=== PATIENT | female | born 1935 | race Caucasian/White ===

== ENCOUNTER 2016-08-26 13:29 | Outpatient (CLI) | payer MEDICARE, OTHER | END 2016-08-26 13:30 | disposition home or self-care (01) | DX: I48.0 Paroxysmal atrial fibrillation (principal); Z79.01 Long term (current) use of anticoagulants ==

== ENCOUNTER 2016-09-09 10:25 | Outpatient (CLI) | payer MEDICARE, OTHER | END 2016-09-09 10:26 | disposition home or self-care (01) | DX: I48.0 Paroxysmal atrial fibrillation (principal); Z79.01 Long term (current) use of anticoagulants ==

== ENCOUNTER 2016-09-10 13:18 | Outpatient (CLI) | payer MEDICARE, OTHER | END 2016-09-10 13:19 | disposition home or self-care (01) | DX: G47.33 Obstructive sleep apnea (adult) (pediatric) (principal) | CPT/HCPCS: 99214; G0463 ==

== ENCOUNTER 2016-09-13 00:38 | Emergency (ER) | payer MEDICARE, OTHER | END 2016-09-13 04:06 | disposition home or self-care (01) | DX: R07.9 Chest pain, unspecified (principal); Z79.01 Long term (current) use of anticoagulants ==

== ENCOUNTER 2016-09-18 08:00 | Outpatient (CLI) | payer MEDICARE, OTHER | END 2016-09-18 23:59 | DX: I48.0 Paroxysmal atrial fibrillation (principal); Z79.01 Long term (current) use of anticoagulants ==

== ENCOUNTER 2016-12-16 13:54 | Outpatient (CLI) | payer MEDICARE, OTHER | END 2016-12-16 23:59 | disposition home or self-care (01) | DX: I48.0 Paroxysmal atrial fibrillation (principal); Z79.01 Long term (current) use of anticoagulants ==

== ENCOUNTER 2017-01-01 13:31 | Outpatient (CLI) | payer MEDICARE, OTHER | END 2017-01-01 13:32 | disposition home or self-care (01) | DX: G47.33 Obstructive sleep apnea (adult) (pediatric) (principal) | CPT/HCPCS: 99214; G0463 ==

== ENCOUNTER 2017-01-26 09:51 | Outpatient (CLI) | payer MEDICARE, OTHER | END 2017-01-26 09:52 | disposition short-term general hospital (02) | LOC: EMS 09:51 | PROVIDERS: ATTEND Surgery | DX: R20.0 Anesthesia of skin (principal) | CPT/HCPCS: A0425; A0427 ==

== ENCOUNTER 2017-01-29 14:57 | Outpatient (CLI) | payer MEDICARE, OTHER | END 2017-01-29 14:58 | disposition home or self-care (01) | LOC: LAB.F 14:57 | PROVIDERS: ATTEND Internal Medicine | DX: I48.0 Paroxysmal atrial fibrillation (principal); Z79.01 Long term (current) use of anticoagulants | CPT/HCPCS: 85610 ==

== ENCOUNTER 2017-02-17 13:16 | Outpatient (CLI) | payer MEDICARE, OTHER | END 2017-02-17 13:17 | disposition home or self-care (01) | LOC: SC 13:16 | PROVIDERS: ATTEND Nurse Practitioner Family | DX: G47.33 Obstructive sleep apnea (adult) (pediatric) (principal) | CPT/HCPCS: 99214; G0463; 99212 ==

== ENCOUNTER 2017-02-20 11:09 | Outpatient (CLI) | payer MEDICARE, OTHER | END 2017-02-20 11:10 | disposition home or self-care (01) | LOC: LAB.F 11:09 | PROVIDERS: ATTEND Internal Medicine | DX: I48.0 Paroxysmal atrial fibrillation (principal); Z79.01 Long term (current) use of anticoagulants | CPT/HCPCS: 85610 ==

== ENCOUNTER 2017-03-02 08:00 | Outpatient (CLI) | payer MEDICARE, OTHER | END 2017-03-02 08:01 | disposition home or self-care (01) | DX: I48.0 Paroxysmal atrial fibrillation (principal); Z79.01 Long term (current) use of anticoagulants ==

== ENCOUNTER 2017-03-06 14:25 | Outpatient (CLI) | payer MEDICARE, OTHER | END 2017-03-06 14:26 | disposition home or self-care (01) | LOC: LAB.F 14:25 | PROVIDERS: ATTEND Internal Medicine | DX: I48.0 Paroxysmal atrial fibrillation (principal); Z79.01 Long term (current) use of anticoagulants | CPT/HCPCS: 85610 ==

== ENCOUNTER 2017-03-19 12:36 | Outpatient (CLI) | payer MEDICARE, OTHER | END 2017-03-19 12:37 | disposition home or self-care (01) | LOC: LAB.F 12:36 | PROVIDERS: ATTEND Internal Medicine | DX: I48.0 Paroxysmal atrial fibrillation (principal); Z79.01 Long term (current) use of anticoagulants | CPT/HCPCS: 85610 ==

== ENCOUNTER 2017-03-25 15:32 | Outpatient (CLI) | payer MEDICARE, OTHER | END 2017-03-25 15:33 | disposition home or self-care (01) | LOC: LAB.F 15:32 | PROVIDERS: ATTEND Internal Medicine | DX: I48.0 Paroxysmal atrial fibrillation (principal); Z79.01 Long term (current) use of anticoagulants | CPT/HCPCS: 85610 ==

== ENCOUNTER 2017-04-15 15:29 | Outpatient (CLI) | payer MEDICARE, OTHER | END 2017-04-15 15:30 | disposition home or self-care (01) | LOC: LAB.F 15:29 | PROVIDERS: ATTEND Internal Medicine | DX: I48.0 Paroxysmal atrial fibrillation (principal); Z79.01 Long term (current) use of anticoagulants | CPT/HCPCS: 85610 ==

== ENCOUNTER 2017-05-01 13:57 | Outpatient (CLI) | payer MEDICARE, OTHER | END 2017-05-01 13:58 | disposition home or self-care (01) | LOC: LAB.F 13:57 | PROVIDERS: ATTEND Internal Medicine | DX: I48.0 Paroxysmal atrial fibrillation (principal); Z79.01 Long term (current) use of anticoagulants | CPT/HCPCS: 85610 ==

== ENCOUNTER 2017-05-06 10:31 | Outpatient (CLI) | payer MEDICARE, OTHER ==
--- NOTE | 2017-05-06 18:00 | CT Report ---
CT CHEST WITHOUT CONTRAST: 05/06/2017 CLINICAL INDICATION: Followup JOANIE infection. TECHNIQUE: Axial CT images of the chest were obtained without intravenous contrast. COMPARISON: 05/07/2016, 12/10/2011. FINDINGS: The heart and great vessels demonstrate atherosclerotic calcification. A moderate hiatal hernia is present. No hilar or mediastinal lymphadenopathy is seen. Multiple pulmonary nodules are again noted, stable, as well as stable bronchiectasis and mild emphysematous changes. No effusion or pneumothorax is present. Limited evaluation of upper abdominal structures demonstrates normal adrenal glands. Osseous structu res demonstrate degenerative changes. IMPRESSION: STABLE CHANGES OF JOANIE INFECTION. NO SIGNIFICANT INTERVAL CHANGE FROM 05/07/2016. In accordance with CT protocol optimization, one or more of the following dose reduction techniques w ere utilized for this exam: automated exposure control, adjustment of mA and/or KV based on patient size, or use of iterative reconstructive technique. JOB #: [id number] EXT JOB #:[id number]
== END 2017-05-06 10:32 | disposition home or self-care (01) ==
LOC: DI 10:31
PROVIDERS: ATTEND Internal Medicine Pulmonary Disease
DX: A31.0 Pulmonary mycobacterial infection (principal); R93.8 Abnormal findings on diagnostic imaging of other specified body structures; R91.8 Other nonspecific abnormal finding of lung field
CPT/HCPCS: 71250

== ENCOUNTER 2017-05-06 13:14 | Outpatient (CLI) | payer MEDICARE, OTHER | END 2017-05-06 13:15 | disposition home or self-care (01) | LOC: SC 13:14 | PROVIDERS: ATTEND Nurse Practitioner Family | DX: G47.33 Obstructive sleep apnea (adult) (pediatric) (principal); A31.0 Pulmonary mycobacterial infection; R93.8 Abnormal findings on diagnostic imaging of other specified body structures; R91.8 Other nonspecific abnormal finding of lung field | CPT/HCPCS: 71250; 99213; G0463; 99212 ==

== ENCOUNTER 2017-05-22 15:22 | Outpatient (CLI) | payer MEDICARE, OTHER | END 2017-05-22 15:23 | disposition home or self-care (01) | LOC: LAB.F 15:22 | PROVIDERS: ATTEND Internal Medicine | DX: I48.0 Paroxysmal atrial fibrillation (principal); Z79.01 Long term (current) use of anticoagulants | CPT/HCPCS: 85610 ==

== ENCOUNTER 2017-07-09 15:00 | Outpatient (CLI) | payer MEDICARE, OTHER | END 2017-07-09 15:01 | disposition home or self-care (01) | LOC: LAB.R 15:00 | PROVIDERS: ATTEND Obstetrics & Gynecology | DX: N89.8 Other specified noninflammatory disorders of vagina (principal) | CPT/HCPCS: 87480; 87510; 87660 ==

== ENCOUNTER 2017-07-21 10:00 | Outpatient (CLI) | payer MEDICARE, OTHER ==
--- NOTE | 2017-07-22 17:22 | Mammography Report ---
DIGITAL SCREENING MAMMOGRAM: 07/21/2017 CLINICAL INDICATION: A 81-year-old with family history of breast cancer, history of benign biopsies for screening. COMPARISON: 06/2015, 07/2013, 06/2011, 06/2010. TECHNIQUE: Routine CC and MLO projections were obtained of the breasts. The breasts demonstrate scattered fibroglandular densities bilaterally. Coarse and punctate, typical ly benign calcifications are present. Post-biopsy changes are stable. No suspicious masses, cluster ed microcalcifications, or regions of architectural distortion are identified. IMPRESSION: BENIGN FINDINGS. RECOMMENDATION: ROUTINE ANNUAL SCREENING UNLESS OTHERWISE CLINICALLY INDICATED. BIRADS CATEGORY: 2, BENIGN FINDINGS. STANDARD QUALIFYING STATEMENTS 1. This examination was reviewed with the aid of Computed-Aided Detection (CAD). 2. A negative or benign imaging report should not delay biopsy if clinically suspicious findings are present. Consider surgical consultation if warranted. More than 5% of cancers are not identified b y imaging. 3. Dense breasts may obscure an underlying neoplasm. JOB #: [id number] EXT JOB #:[id number]
== END 2017-07-21 10:01 | disposition home or self-care (01) ==
LOC: DI 10:00
PROVIDERS: ATTEND Internal Medicine
DX: Z12.31 Encounter for screening mammogram for malignant neoplasm of breast (principal); Z80.3 Family history of malignant neoplasm of breast
CPT/HCPCS: 77067

== ENCOUNTER 2017-07-22 13:38 | Outpatient (CLI) | payer MEDICARE, OTHER | END 2017-07-22 13:39 | disposition home or self-care (01) | LOC: LAB.F 13:38 | PROVIDERS: ATTEND Internal Medicine | DX: I48.0 Paroxysmal atrial fibrillation (principal); Z79.01 Long term (current) use of anticoagulants | CPT/HCPCS: 85610 ==

== ENCOUNTER 2017-07-28 13:52 | Outpatient (CLI) | payer MEDICARE, OTHER | END 2017-07-28 13:53 | disposition home or self-care (01) | LOC: LAB.F 13:52 | PROVIDERS: ATTEND Internal Medicine Cardiovascular Disease | DX: Z79.899 Other long term (current) drug therapy (principal) | CPT/HCPCS: 36415; 84450; 84460 ==

== ENCOUNTER 2017-08-05 09:43 | Outpatient (CLI) | payer MEDICARE, OTHER ==
--- NOTE | 2017-08-06 16:32 | DEXA Report ---
DEXA: 08/05/2017 CLINICAL INDICATION: Postmenopausal, on Fosamax TECHNIQUE: Dual energy x-ray absorptiometry (DXA) was performed on a [employer] system. Regions measured are the AP spine, femoral neck, and, if needed, forearm. COMPARISON: 06/16/2016. In accordance with the International Society for Clinical Densitometry (ISCD) guidelines, data from previous exams may be reanalyzed using current recommendations and techniques. This is done to allow a more accurate basis for comparison with the current study. FINDINGS: LUMBAR SPINE DATA: REGION BMD (g/cm/cm) T-SCORE Z-SCORE L1 0.886 -2.0 -0.2 L2 0.890 -2.6 -0.8 L3 1.141 -0.5 1.3 L4 1.067 -1.1 0.7 TOTAL 0.994 -1.5 0.3 NOTE: All evaluable vertebrae are used for classification. HIP DATA: REGION BMD (g/cm/cm) T-SCORE Z-SCORE Neck 0.764 -2.0 0.2 TOTAL 0.739 -2.1 -0.2 NOTE: The femoral neck or total proximal femur, whichever is lowest, is used for classification. IMPRESSION THE WHO CLASSIFICATION BASED ON THE INTERNATIONAL REFERENCE STANDARD: OSTEOPENIA FRACTURE RISK: INCREASED. RECOMMENDATION: Patients with diagnosis of osteoporosis or osteopenia should have regular bone mineral density assessment. For those eligible for Medicare, routine testing is allowed once every 2 years. Testing frequency can be increased for patients who have rapidly progressing disease or for those who are receiving medical therapy to restore bone mass. COMMENT: World Health Organization (WHO) definitions for osteoporosis and osteopenia: NORMAL BMD: T-score at -1.0 or higher, fracture risk is low. OSTEOPENIA BMD: T-score between -1.0 and -2.5, fracture risk is increased. OSTEOPOROSIS BMD: T-score at -2.5 or lower, fracture risk high. National Osteoporosis Foundation recommends: 1. Obtain adequate dietary calcium (at least 1200 mg per day) and vitamin D (400 -800 international units per day). 2. Participate, as appropriate, in regular weight bearing and muscle- strengthening exercise. 3. Avoid tobacco use and reduce alcohol and caffeine intake. 4. For more detailed information see the website at www.NOF.org. MTDD
== END 2017-08-05 09:44 | disposition home or self-care (01) ==
LOC: DI 09:43
PROVIDERS: ATTEND Internal Medicine
DX: M85.89 Other specified disorders of bone density and structure, multiple sites (principal)
CPT/HCPCS: 77080

== ENCOUNTER 2017-08-14 13:13 | Outpatient (CLI) | payer MEDICARE, OTHER | END 2017-08-14 13:14 | disposition home or self-care (01) | LOC: LAB.F 13:13 | PROVIDERS: ATTEND Internal Medicine | DX: I48.0 Paroxysmal atrial fibrillation (principal); Z79.01 Long term (current) use of anticoagulants | CPT/HCPCS: 85610 ==

== ENCOUNTER 2017-08-27 13:39 | Outpatient (CLI) | payer MEDICARE, OTHER | END 2017-08-27 13:40 | disposition home or self-care (01) | LOC: LAB.F 13:39 | PROVIDERS: ATTEND Internal Medicine | DX: I48.0 Paroxysmal atrial fibrillation (principal); Z79.01 Long term (current) use of anticoagulants | CPT/HCPCS: 85610 ==

== ENCOUNTER 2017-12-15 13:39 | Outpatient (CLI) | payer MEDICARE, OTHER | END 2017-12-15 13:40 | disposition home or self-care (01) | LOC: LAB.F 13:39 | PROVIDERS: ATTEND Internal Medicine | DX: I48.0 Paroxysmal atrial fibrillation (principal); Z79.01 Long term (current) use of anticoagulants | CPT/HCPCS: 85610 ==

== ENCOUNTER 2018-01-19 08:00 | Outpatient (CLI) | payer MEDICARE, OTHER | END 2018-01-19 08:01 | LOC: LAB.F 08:00 | PROVIDERS: ATTEND Internal Medicine | DX: I48.0 Paroxysmal atrial fibrillation (principal); Z79.01 Long term (current) use of anticoagulants | CPT/HCPCS: 85610 ==

== ENCOUNTER 2018-02-05 13:22 | Outpatient (CLI) | payer MEDICARE, OTHER | END 2018-02-05 13:23 | disposition home or self-care (01) | LOC: LAB.F 13:22 | PROVIDERS: ATTEND Internal Medicine | DX: I48.0 Paroxysmal atrial fibrillation (principal); Z79.01 Long term (current) use of anticoagulants | CPT/HCPCS: 85610 ==

== ENCOUNTER 2018-03-31 14:00 | Outpatient (CLI) | payer MEDICARE, OTHER | END 2018-03-31 14:01 | disposition home or self-care (01) | LOC: LAB.F 14:00 | PROVIDERS: ATTEND Internal Medicine | DX: I48.0 Paroxysmal atrial fibrillation (principal); Z79.01 Long term (current) use of anticoagulants | CPT/HCPCS: 85610 ==

== ENCOUNTER 2018-04-05 13:43 | Outpatient (CLI) | payer MEDICARE, OTHER ==
[2018-04-05 17:57] LABS: BASOPHILS # (AUTO) 0.1 10^3/uL (0.0-0.1); BASOPHILS % (AUTO) 0.8 %; EOSINOPHILS # (AUTO) 0.1 10^3/uL (0.0-0.7); EOSINOPHILS % (AUTO) 1.3 %; HGB - HEMOGLOBIN 11.7 g/dL (12.0-16.0); LYMPHOCYTES # (AUTO) 1.4 10^3/uL (1.5-3.5); LYMPHOCYTES % (AUTO) 18.4 %; MEAN CORPUSCULAR HEMOGLOBIN 31.5 pg (27.0-31.0); MEAN CORPUSCULAR HGB CONC 33.2 g/dL (32.0-36.0); MEAN PLATELET VOLUME 7.7 fL (7.9-10.8); MONOCYTES # (AUTO) 0.5 10^3/uL (0.0-1.0); MONOCYTES % (AUTO) 6.4 %; NEUTROPHILS # (AUTO) 5.5 10^3/uL (1.5-6.6); NEUTROPHILS % (AUTO) 73.1 %; PLT - PLATELET COUNT 272 10^3/uL (130-450); RED BLOOD COUNT 3.71 10^6/uL (4.20-5.40); RED CELL DISTRIBUTION WIDTH 14.3 % (12.0-15.0); WHITE BLOOD COUNT 7.5 x10^3/uL (4.8-10.8)
[2018-04-05 18:23] LABS: ALBUMIN 3.5 g/dL (3.2-5.5); ALBUMIN/GLOBULIN RATIO 1.1 (1.0-2.2); BILIRUBIN,TOTAL 1.1 mg/dL (0.2-1.0); CALCIUM 8.5 mg/dL (8.5-10.3); CREATININE 0.7 mg/dL (0.4-1.0); TOTAL PROTEIN 6.6 g/dL (6.7-8.2)
[2018-04-07 19:31] LABS: H. PYLORIS ANTIGEN STL NEGATIVE (Negative)
== END 2018-04-05 13:44 | disposition home or self-care (01) ==
LOC: LAB.F 13:43
PROVIDERS: ATTEND Internal Medicine
DX: I48.0 Paroxysmal atrial fibrillation (principal); Z79.01 Long term (current) use of anticoagulants; J30.9 Allergic rhinitis, unspecified; D32.0 Benign neoplasm of cerebral meninges; K21.9 Gastro-esophageal reflux disease without esophagitis; J98.4 Other disorders of lung; G47.33 Obstructive sleep apnea (adult) (pediatric); A31.0 Pulmonary mycobacterial infection; E04.1 Nontoxic single thyroid nodule; R19.7 Diarrhea, unspecified
CPT/HCPCS: 36415; 80053; 85025; 85610; 87338

== ENCOUNTER 2018-04-07 08:00 | Outpatient (CLI) | payer MEDICARE, OTHER | END 2018-04-07 08:01 | disposition home or self-care (01) | LOC: LAB.F 08:00 | PROVIDERS: ATTEND Internal Medicine | DX: J30.9 Allergic rhinitis, unspecified (principal); I48.91 Unspecified atrial fibrillation; D32.0 Benign neoplasm of cerebral meninges; K21.9 Gastro-esophageal reflux disease without esophagitis; J98.4 Other disorders of lung; G47.33 Obstructive sleep apnea (adult) (pediatric); A31.0 Pulmonary mycobacterial infection; E04.1 Nontoxic single thyroid nodule; R19.7 Diarrhea, unspecified | CPT/HCPCS: 87338 ==

== ENCOUNTER 2018-04-16 14:35 | Outpatient (CLI) | payer MEDICARE, OTHER | END 2018-04-16 14:36 | disposition home or self-care (01) | LOC: LAB.F 14:35 | PROVIDERS: ATTEND Internal Medicine | DX: I48.0 Paroxysmal atrial fibrillation (principal); Z79.01 Long term (current) use of anticoagulants | CPT/HCPCS: 85610 ==

== ENCOUNTER 2018-05-25 13:15 | Outpatient (CLI) | payer MEDICARE, OTHER | END 2018-05-25 13:16 | disposition home or self-care (01) | LOC: SC 13:15 | PROVIDERS: ATTEND Nurse Practitioner Family | DX: G47.33 Obstructive sleep apnea (adult) (pediatric) (principal) | CPT/HCPCS: 99214; G0463; 99212 ==

== ENCOUNTER 2018-05-28 13:44 | Outpatient (CLI) | payer MEDICARE, OTHER | END 2018-05-28 13:45 | disposition home or self-care (01) | LOC: LAB.F 13:44 | PROVIDERS: ATTEND Internal Medicine | DX: I48.0 Paroxysmal atrial fibrillation (principal); Z79.01 Long term (current) use of anticoagulants | CPT/HCPCS: 85610 ==

== ENCOUNTER 2018-06-10 14:10 | Outpatient (CLI) | payer MEDICARE, OTHER | END 2018-06-10 14:11 | disposition home or self-care (01) | LOC: LAB.F 14:10 | PROVIDERS: ATTEND Internal Medicine | DX: I48.0 Paroxysmal atrial fibrillation (principal); Z79.01 Long term (current) use of anticoagulants | CPT/HCPCS: 85610 ==

== ENCOUNTER 2018-06-22 12:36 | Outpatient (CLI) | payer MEDICARE, OTHER | END 2018-06-22 12:37 | disposition home or self-care (01) | LOC: LAB.F 12:36 | PROVIDERS: ATTEND Internal Medicine | DX: I48.0 Paroxysmal atrial fibrillation (principal); Z79.01 Long term (current) use of anticoagulants | CPT/HCPCS: 85610 ==

== ENCOUNTER 2018-06-28 13:09 | Outpatient (CLI) | payer MEDICARE, OTHER ==
--- NOTE | 2018-06-28 15:59 | CT Report ---
Reason: COUGH, HISTORY OF MAC INFECTION Procedure Date: 06/28/2018 Accession Number: [id number] / [id number] Procedure: CT - Chest W/O CPT Code: FULL RESULT: EXAM: CT CHEST EXAM DATE: 06/28/2018 01:35 PM. CLINICAL HISTORY: Cough, history of MAC infection. COMPARISONS: CHEST W/O 05/06/2017 12:11 PM. TECHNIQUE: Routine helical CT imaging was performed through the chest. IV contrast: None. Reconstructions: Coronal and sagittal. In accordance with CT protocol optimization, one or more of the following dose reduction techniques were utilized for this exam: automated exposure control, adjustment of mA and/or KV based on patient size, or use of iterative reconstructive technique. FINDINGS: Lungs/Pleura: Numerous peripheral tiny nodules and tree-in-bud opacities as well as scant peripheral nodules measuring up to 0.8 cm appear similar in distribution and size to April 2017. Again seen is bronchiectasis and bronchial wall thickening which is most pronounced in the lingula where there is nima scarring. There is no superimposed lobar consolidation. No pulmonary mass or new suspicious pulmonary nodule is identified though sensitivity for this is limited given the background of extensive pulmonary nodules. No pericardial or pleural effusion. No pneumothorax. Mediastinum: Normal. No adenopathy or masses. The noncontrast heart is normal. Aortic calcifications are again seen. Bones: Unremarkable. Visualized Abdomen: Unremarkable. Other: None. IMPRESSION: Stable configuration of numerous peripheral lung nodules, tree-in-bud opacities and scarring with bronchiectasis which is lingula predominant. RADIA
== END 2018-06-28 13:10 | disposition home or self-care (01) ==
LOC: DI 13:09
PROVIDERS: ATTEND Internal Medicine Pulmonary Disease
DX: J47.9 Bronchiectasis, uncomplicated (principal); R91.8 Other nonspecific abnormal finding of lung field; Z86.19 Personal history of other infectious and parasitic diseases
CPT/HCPCS: 71250

== ENCOUNTER 2018-07-06 14:55 | Outpatient (CLI) | payer MEDICARE, OTHER | END 2018-07-06 14:56 | disposition home or self-care (01) | LOC: LAB.F 14:55 | PROVIDERS: ATTEND Internal Medicine | DX: Z53.9 Procedure and treatment not carried out, unspecified reason (principal) ==

== ENCOUNTER 2018-07-07 13:39 | Outpatient (CLI) | payer MEDICARE, OTHER ==
[2018-07-07 18:23] LABS: INR 2.3 (0.8-1.2); PT - PROTHROMBIN TIME 25.9 secs (9.9-12.6)
== END 2018-07-07 13:40 | disposition home or self-care (01) ==
LOC: LAB.F 13:39
PROVIDERS: ATTEND Internal Medicine
DX: I48.0 Paroxysmal atrial fibrillation (principal); Z79.01 Long term (current) use of anticoagulants
CPT/HCPCS: 36415; 85610

== ENCOUNTER 2018-07-23 13:15 | Outpatient (CLI) | payer MEDICARE, OTHER | END 2018-07-23 13:16 | disposition home or self-care (01) | LOC: LAB.F 13:15 | PROVIDERS: ATTEND Internal Medicine | DX: I48.0 Paroxysmal atrial fibrillation (principal); Z79.01 Long term (current) use of anticoagulants | CPT/HCPCS: 85610 ==

== ENCOUNTER 2018-08-02 11:27 | Outpatient (CLI) | payer MEDICARE, OTHER ==
--- NOTE | 2018-08-03 09:39 | Mammography Report ---
Reason: SCREENING MAMMO Procedure Date: 08/02/2018 Accession Number: [id number] / [id number] Procedure: [facility]ATE[facility] - Screening Mammo w/Hernan CPT Code: FULL RESULT: EXAM: Screening Mammo w/Hernan DATE: 08/02/2018 12:20 PM CLINICAL HISTORY: Screening encounter. History of bilateral breast biopsies in 1997 and 2002 respectively. Family history of breast cancer in the mother at age 72 a daughter at age 55 and a brother at age 65. TECHNIQUE: Bilateral CC and MLO views were obtained. COMPARISON: 07/21/2017 through 07/01/2011. FINDINGS: The breasts demonstrate scattered fibroglandular densities bilaterally. Typically benign large rodlike calcifications and typically benign vascular calcifications are identified. No suspicious masses, clustered microcalcifications, or regions of architectural distortion are identified. IMPRESSION: Benign findings RECOMMENDATION: Routine annual screening unless otherwise clinically indicated. BIRADS CATEGORY 2: Benign findings STANDARD QUALIFYING STATEMENTS: 1. This examination was not reviewed with the aid of Computer-Aided Detection (CAD). 2. A negative or benign imaging report should not preclude biopsy if clinically suspicious findings are present. 3. Dense breasts may obscure an underlying neoplasm. 4. This examination was reviewed with the aid of 3D breast imaging (tomosynthesis).
== END 2018-08-02 11:28 | disposition home or self-care (01) ==
LOC: DI 11:27
DX: Z12.31 Encounter for screening mammogram for malignant neoplasm of breast (principal); Z80.3 Family history of malignant neoplasm of breast
CPT/HCPCS: 77063; 77067

== ENCOUNTER 2018-08-30 13:37 | Outpatient (CLI) | payer MEDICARE, OTHER | END 2018-08-30 13:38 | disposition home or self-care (01) | LOC: LAB.F 13:37 | PROVIDERS: ATTEND Internal Medicine | DX: I48.0 Paroxysmal atrial fibrillation (principal); Z79.01 Long term (current) use of anticoagulants | CPT/HCPCS: 85610 ==

== ENCOUNTER 2018-08-31 08:00 | Outpatient (CLI) | payer MEDICARE, OTHER | END 2018-08-31 23:59 | disposition home or self-care (01) | LOC: LAB.R 08:00 | PROVIDERS: ATTEND Obstetrics & Gynecology | DX: N76.0 Acute vaginitis (principal) | CPT/HCPCS: 87480; 87510; 87660 ==

== ENCOUNTER 2018-09-24 13:34 | Outpatient (CLI) | payer MEDICARE, OTHER | END 2018-09-24 13:35 | disposition home or self-care (01) | LOC: LAB.F 13:34 | PROVIDERS: ATTEND Internal Medicine | DX: I48.0 Paroxysmal atrial fibrillation (principal); Z79.01 Long term (current) use of anticoagulants | CPT/HCPCS: 85610 ==

== ENCOUNTER 2018-11-17 13:12 | Outpatient (CLI) | payer MEDICARE, OTHER | END 2018-11-17 13:13 | disposition home or self-care (01) | LOC: LAB.F 13:12 | PROVIDERS: ATTEND Internal Medicine | DX: I48.0 Paroxysmal atrial fibrillation (principal); Z79.01 Long term (current) use of anticoagulants | CPT/HCPCS: 85610 ==

== ENCOUNTER 2018-12-01 13:30 | Outpatient (CLI) | payer MEDICARE, OTHER | END 2018-12-01 13:31 | disposition home or self-care (01) | LOC: LAB.F 13:30 | PROVIDERS: ATTEND Internal Medicine | DX: I48.0 Paroxysmal atrial fibrillation (principal); Z79.01 Long term (current) use of anticoagulants | CPT/HCPCS: 85610 ==

== ENCOUNTER 2018-12-24 13:53 | Outpatient (CLI) | payer MEDICARE, OTHER | END 2018-12-24 13:54 | disposition home or self-care (01) | LOC: LAB.F 13:53 | PROVIDERS: ATTEND Internal Medicine | DX: I48.0 Paroxysmal atrial fibrillation (principal); Z79.01 Long term (current) use of anticoagulants | CPT/HCPCS: 85610 ==

== ENCOUNTER 2019-01-13 13:44 | Outpatient (CLI) | payer MEDICARE, OTHER ==
[2019-01-13 17:42] LABS: BASOPHILS % (AUTO) 0.4 %; EOSINOPHILS # (AUTO) 0.1 10^3/uL (0.0-0.7); HGB - HEMOGLOBIN 12.3 g/dL (12.0-16.0); LYMPHOCYTES # (AUTO) 1.6 10^3/uL (1.5-3.5); LYMPHOCYTES % (AUTO) 21.6 %; MEAN CORPUSCULAR HEMOGLOBIN 30.8 pg (27.0-31.0); MEAN CORPUSCULAR HGB CONC 32.7 g/dL (32.0-36.0); MEAN CORPUSCULAR VOLUME 94.1 fL (81.0-99.0); MEAN PLATELET VOLUME 7.4 fL (7.9-10.8); MONOCYTES # (AUTO) 0.6 10^3/uL (0.0-1.0); MONOCYTES % (AUTO) 7.4 %; NEUTROPHILS # (AUTO) 5.2 10^3/uL (1.5-6.6); NEUTROPHILS % (AUTO) 69.6 %; PLT - PLATELET COUNT 314 10^3/uL (130-450); RED BLOOD COUNT 3.99 10^6/uL (4.20-5.40); RED CELL DISTRIBUTION WIDTH 14.5 % (12.0-15.0); WHITE BLOOD COUNT 7.5 x10^3/uL (4.8-10.8)
[2019-01-13 18:05] LABS: ALBUMIN 3.7 g/dL (3.2-5.5); ALBUMIN/GLOBULIN RATIO 1.1 (1.0-2.2); BILIRUBIN,TOTAL 0.5 mg/dL (0.2-1.0); CALCIUM 8.7 mg/dL (8.5-10.3); CREATININE 0.6 mg/dL (0.4-1.0); TOTAL PROTEIN 7.1 g/dL (6.7-8.2)
== END 2019-01-13 13:45 | disposition home or self-care (01) ==
LOC: LAB.F 13:44
PROVIDERS: ATTEND Internal Medicine
DX: I48.0 Paroxysmal atrial fibrillation (principal); Z79.01 Long term (current) use of anticoagulants; J30.9 Allergic rhinitis, unspecified; D32.0 Benign neoplasm of cerebral meninges; R19.7 Diarrhea, unspecified; K21.9 Gastro-esophageal reflux disease without esophagitis; R91.8 Other nonspecific abnormal finding of lung field; G47.33 Obstructive sleep apnea (adult) (pediatric); A31.0 Pulmonary mycobacterial infection; E04.1 Nontoxic single thyroid nodule; N76.0 Acute vaginitis
CPT/HCPCS: 36415; 80053; 85025; 85610

== ENCOUNTER 2019-01-24 08:00 | Outpatient (CLI) | payer MEDICARE, OTHER | END 2019-01-24 23:59 | disposition home or self-care (01) | LOC: LAB.R 08:00 | PROVIDERS: ATTEND Internal Medicine | DX: R19.7 Diarrhea, unspecified (principal); J30.9 Allergic rhinitis, unspecified; I48.91 Unspecified atrial fibrillation; D32.0 Benign neoplasm of cerebral meninges; K21.9 Gastro-esophageal reflux disease without esophagitis; R91.8 Other nonspecific abnormal finding of lung field; G47.33 Obstructive sleep apnea (adult) (pediatric); A31.0 Pulmonary mycobacterial infection; E04.1 Nontoxic single thyroid nodule; N76.0 Acute vaginitis | CPT/HCPCS: 81599; 82270; 87045; 87046; 87329 ==

== ENCOUNTER 2019-01-26 08:00 | Outpatient (CLI) | payer MEDICARE, OTHER | END 2019-01-26 23:59 | disposition home or self-care (01) | LOC: LAB.R 08:00 | PROVIDERS: ATTEND Internal Medicine | DX: R19.7 Diarrhea, unspecified (principal); J30.9 Allergic rhinitis, unspecified; I48.91 Unspecified atrial fibrillation; D32.0 Benign neoplasm of cerebral meninges; K21.9 Gastro-esophageal reflux disease without esophagitis; R91.8 Other nonspecific abnormal finding of lung field; G47.33 Obstructive sleep apnea (adult) (pediatric); A31.0 Pulmonary mycobacterial infection; E04.1 Nontoxic single thyroid nodule; N76.0 Acute vaginitis | CPT/HCPCS: 83630; 87177; 87209 ==

== ENCOUNTER 2019-01-26 08:00 | Outpatient (CLI) | payer MEDICARE, OTHER ==
[2019-01-26 19:25] LABS: H. PYLORIS ANTIGEN STL NEGATIVE (Negative)
== END 2019-01-26 23:59 | disposition home or self-care (01) ==
LOC: LAB.R 08:00
PROVIDERS: ATTEND Internal Medicine
DX: R19.7 Diarrhea, unspecified (principal); J30.9 Allergic rhinitis, unspecified; I48.91 Unspecified atrial fibrillation; D32.0 Benign neoplasm of cerebral meninges; K21.9 Gastro-esophageal reflux disease without esophagitis; R91.8 Other nonspecific abnormal finding of lung field; G47.33 Obstructive sleep apnea (adult) (pediatric); A31.0 Pulmonary mycobacterial infection; E04.1 Nontoxic single thyroid nodule; N76.0 Acute vaginitis
CPT/HCPCS: 87338

== ENCOUNTER 2019-02-09 13:18 | Outpatient (CLI) | payer MEDICARE, OTHER | END 2019-02-09 13:19 | disposition home or self-care (01) | LOC: LAB.F 13:18 | PROVIDERS: ATTEND Internal Medicine | DX: I48.0 Paroxysmal atrial fibrillation (principal); Z79.01 Long term (current) use of anticoagulants | CPT/HCPCS: 85610 ==

== ENCOUNTER 2019-04-07 09:27 | Outpatient (CLI) | payer MEDICARE, OTHER | END 2019-04-07 09:28 | disposition home or self-care (01) | LOC: LAB.S 09:27 | PROVIDERS: ATTEND Internal Medicine | DX: I48.0 Paroxysmal atrial fibrillation (principal); Z79.01 Long term (current) use of anticoagulants | CPT/HCPCS: 85610 ==

== ENCOUNTER 2019-05-23 10:05 | Outpatient (CLI) | payer MEDICARE, OTHER | END 2019-05-23 10:06 | disposition home or self-care (01) | LOC: LAB.S 10:05 | PROVIDERS: ATTEND Internal Medicine | DX: I48.0 Paroxysmal atrial fibrillation (principal); Z79.01 Long term (current) use of anticoagulants | CPT/HCPCS: 85610 ==

== ENCOUNTER 2019-06-15 13:20 | Outpatient (CLI) | payer MEDICARE, OTHER | END 2019-06-15 13:21 | disposition home or self-care (01) | LOC: LAB.S 13:20 | PROVIDERS: ATTEND Internal Medicine | DX: I48.0 Paroxysmal atrial fibrillation (principal); Z79.01 Long term (current) use of anticoagulants | CPT/HCPCS: 85610 ==

== ENCOUNTER 2019-06-16 12:01 | Outpatient (CLI) | payer MEDICARE, OTHER ==
[2019-06-16 17:17] LABS: CREATININE 0.6 mg/dL (0.4-1.0)
== END 2019-06-16 12:02 | disposition home or self-care (01) ==
LOC: LAB.S 12:01
PROVIDERS: ATTEND Psychiatry & Neurology Neurology
DX: C71.9 Malignant neoplasm of brain, unspecified (principal)
CPT/HCPCS: 36415; 82565; 84520

== ENCOUNTER 2019-06-28 09:54 | Outpatient (CLI) | payer MEDICARE, OTHER ==
[2019-06-28 12:21] VITALS: BP 140/68
--- NOTE | 2019-06-28 12:21 | SLEEP CARE CONSULTATION ---
Information from patient questionnaire entered by Rosmery Medina. I have reviewed and concur with the information entered by Rosmery Medina. This document represents the service I personally performed and the decisions made by me, Una Montez, RN, MSN, MINE MANAGER. History of Present Illness Previous diagnosis: Mild, Obstructive Sleep Apnea-Hypopnea Syndrome AHI: 10.1 Reason for follow up: annual Accompanied by: Spouse Equipment type: CPAP Equipment obtained from: [employer] (getting equipment okay) Mask style: Full face (F20) Mask brand: Resmed Backup mask available: Yes Last cushion change: a couple days ago Prior sleep studies: Yes [facility] additional information: Patient monitoring blood pressure as systolic running in 140s lately and is working with PCP for further evaluation. CPAP Compliance Data - Data Reviewed with Patient Average duration of nightly device use: 8H 4M Compliance rate %: 96.1 Current pressure setting (cmH2O): 6-12 Humidity settin Heated hose settin Average residual AHI: 2.2 Average large leak: 37M 18S mainly during March to May Subjective Missed days of use due to: reports: illness Patient concerns: reports: other (obtained wrong mask and was difficult to use until it was replaced and had large mask leaks then. ). denies: aerophagia, mask discomfort, air blowing in eyes, mask leak noise, condensation in mask/hose, nasal congestion, dry mouth, nose, throat, epistaxis Observed to snore while using device: No Current pressure setting perceived as: comfortable On therapy, patient: reports: sleeping better, awakening more refreshed, being more awake and alert during the day, more rested overall. denies: drowsiness while driving Initial [place] Sleepiness Scale score: 10 Current [place] Sleepiness Scale score: 8 Allergies and Home Medications Known drug allergies: Yes (see list ) Home medication list reviewed: Yes Allergy and home medication list: Medication Name (generic/name brand) Strength & Dosage 4 Way Saline nasal spray As needed Acetaminophen 500mg tab two twice daily Azelastine 137 mcg/inh nasal spray Two sprays each nostril twice daily Calcium-Vitamin D 600mg-400IU tab one twice daily Loratadine 10mg tab one daily as needed Metoprolol Succinate ER 25mg tab 2 times a day Metronidazole 0.75% topical gel Apply to affected area once daily Mupirocin 2% topical ointment Apply to affected area three times daily Omeprazole DR 40mg cap one daily Systane Balance ophthalmic solution One drop both eyes four times daily prn Warfarin 2.5mg tab as directed VagiFem 10mg bid Fluticasone 50mcg 1 spray each nostril daily Multivitamin 1 daily Allergies: Ceftin, levaquin Review of Systems Review of systems same as previous: No (vaginal dryness resolved with medication / blood pressure slightly elevated) Physical Exam Blood Pressure: 140/68 Cuff size: regular Heart Rate: 80 O2 Saturation: 96 Height: 5 ft 4.5 in Weight: 138 lb 3.2 oz Body Mass Index: 23.3 BMI Classification: Healthy weight Impression and Plan 1. Obstructive Sleep Apnea-Hypopnea Syndrome, mild, with good treatment compliance and good apnea control. On CPAP therapy, the patient has better sleep quality and is more rested overall. Her transfer to [facility] has worked well in getting supplies. The only time she had mask leaks was when she had the wrong mask headgear. Patient's apnea severity and rationale for treatment to reduce apnea, improve sleep quality and reduce cardiovascular and cerebrovascular events was reviewed. I also reviewed the benefit of consistent device use of CPAP for hypertension, arrhythmia * Continue CPAP pressure at 6-01pqD0C * Notify me if snoring with mask or feeling that the pressure is too much or too little * Attempt to lose weight * Return for follow up in 1 year , or sooner if concerns arise . I spent 100% of this 17 minute visit face to face with the patient with greater than 50% of this was spent time counseling the patient and coordination of care.
== END 2019-06-28 09:55 | disposition home or self-care (01) ==
LOC: SC 09:54
PROVIDERS: ATTEND Nurse Practitioner Family
DX: G47.33 Obstructive sleep apnea (adult) (pediatric) (principal)
CPT/HCPCS: 99213; G0463; 99212

== ENCOUNTER 2019-07-25 11:01 | Outpatient (CLI) | payer MEDICARE, OTHER ==
--- NOTE | 2019-07-25 14:49 | Mammography Report ---
Reason: ROUTINE MAMMO Procedure Date: 07/25/2019 Accession Number: [id number] / [id number] Procedure: MGS - Screening Mammo Dig Bilat CPT Code: Final Report FULL RESULT: EXAM: Screening Mammo Dig Bilat DATE: 07/25/2019 11:31 AM CLINICAL HISTORY: The patient is an 83-year-old female with a family history of breast cancer. Prior benign bilateral excisional biopsies. TECHNIQUE: (B) - Bilateral CC and MLO views were obtained. COMPARISON: 08/02/2018, 07/13/2017, 07/11/2015, 08/03/2013 07/01/2011 PARENCHYMAL PATTERN: (A) - The breasts demonstrate scattered fibroglandular densities bilaterally. FINDINGS: The pattern of asymmetry is accentuated by variation positioning and probable weight loss. Post surgical changes are noted bilaterally. Scattered and loosely-grouped benign calcifications are again noted. There are no suspicious masses, calcifications, or areas of distortion. IMPRESSION: Benign findings. BI-RADS category 2. RECOMMENDATION: Recommend routine screening mammography as clinically warranted BI-RADS CATEGORY: (2) - Benign Findings. STANDARD QUALIFYING STATEMENTS: 1. This examination was reviewed with the aid of Computer-Aided Detection (CAD). 2. A negative or benign imaging report should not preclude biopsy if clinically suspicious findings are present. 3. Dense breasts may obscure an underlying neoplasm.
== END 2019-07-25 11:02 | disposition home or self-care (01) ==
LOC: DI.S 11:01
DX: Z12.31 Encounter for screening mammogram for malignant neoplasm of breast (principal); Z80.3 Family history of malignant neoplasm of breast
CPT/HCPCS: 77067

== ENCOUNTER 2019-08-04 09:59 | Outpatient (CLI) | payer MEDICARE, OTHER ==
[2019-08-04 17:48] LABS: CHOL/HDL RATIO 1.7 (<4.4); CHOLESTEROL 112 mg/dL; HDL CHOLESTEROL 65 mg/dL; LDL CHOLESTEROL,CALCULATED 33 mg/dL; LDL/HDL RATIO 0.5 (<4.4); VLDL CHOLESTEROL 14 mg/dL
== END 2019-08-04 10:00 | disposition home or self-care (01) ==
LOC: LAB.S 09:59
PROVIDERS: ATTEND Internal Medicine
DX: Z79.01 Long term (current) use of anticoagulants (principal); D32.0 Benign neoplasm of cerebral meninges; J30.9 Allergic rhinitis, unspecified; I48.0 Paroxysmal atrial fibrillation; K21.9 Gastro-esophageal reflux disease without esophagitis; G47.33 Obstructive sleep apnea (adult) (pediatric); A31.0 Pulmonary mycobacterial infection; E04.1 Nontoxic single thyroid nodule; G45.9 Transient cerebral ischemic attack, unspecified; R91.8 Other nonspecific abnormal finding of lung field
CPT/HCPCS: 36415; 80061; 83721; 85610

== ENCOUNTER 2019-12-13 12:57 | Outpatient (CLI) | payer MEDICARE, OTHER | END 2019-12-13 12:58 | disposition home or self-care (01) | LOC: LAB 12:57 | PROVIDERS: ATTEND Internal Medicine | DX: I48.0 Paroxysmal atrial fibrillation (principal); Z79.01 Long term (current) use of anticoagulants | CPT/HCPCS: 85610 ==

== ENCOUNTER 2020-02-03 11:43 | Outpatient (CLI) | payer MEDICARE, OTHER | END 2020-02-03 11:44 | disposition home or self-care (01) | LOC: LAB.S 11:43 | PROVIDERS: ATTEND Internal Medicine | DX: I48.0 Paroxysmal atrial fibrillation (principal); Z79.01 Long term (current) use of anticoagulants | CPT/HCPCS: 85610 ==

== ENCOUNTER 2020-02-21 12:25 | Outpatient (CLI) | payer MEDICARE, OTHER | END 2020-02-21 12:26 | disposition home or self-care (01) | LOC: LAB 12:25 | PROVIDERS: ATTEND Internal Medicine | DX: R06.02 Shortness of breath (principal); Z20.828 Contact with and (suspected) exposure to other viral communicable diseases | CPT/HCPCS: 81599 ==

== ENCOUNTER 2020-02-23 14:36 | Outpatient (CLI) | payer MEDICARE, OTHER ==
--- NOTE | 2020-02-24 09:46 | XRAY Report ---
PROCEDURE: Chest 2 View X-Ray INDICATIONS: CHEST PAIN TECHNIQUE: 2 view(s) of the chest. COMPARISON: CT chest , chest x-ray 09/13/2016 FINDINGS: Surgical changes and devices: None. Lungs and pleura: No pleural effusions or pneumothorax. Chronic interstitial changes are present. Mediastinum: Mediastinal contours are normal. Heart size is normal. Bones and chest wall: No suspicious bony abnormalities. Soft tissues appear unremarkable. IMPRESSION: Chronic interstitial changes. No acute pulmonary process. Reviewed by: Ivet Marrero MD on 02/24/2020 9:44 AM PDT Approved by: Ivet Marrero MD on 02/24/2020 9:44 AM PDT Station ID: [id number]
== END 2020-02-23 14:37 | disposition home or self-care (01) ==
LOC: RT 14:36 → DI 14:37
PROVIDERS: ATTEND Internal Medicine
DX: J84.9 Interstitial pulmonary disease, unspecified (principal)
CPT/HCPCS: 71046; 93005

== ENCOUNTER 2020-04-04 11:31 | Outpatient (CLI) | payer MEDICARE, OTHER | END 2020-04-04 11:32 | disposition home or self-care (01) | LOC: LAB.S 11:31 | PROVIDERS: ATTEND Internal Medicine | DX: I48.0 Paroxysmal atrial fibrillation (principal); Z79.01 Long term (current) use of anticoagulants | CPT/HCPCS: 85610 ==

== ENCOUNTER 2020-04-24 14:31 | Outpatient (CLI) | payer MEDICARE, OTHER | END 2020-04-24 14:32 | disposition home or self-care (01) | LOC: LAB.S 14:31 | PROVIDERS: ATTEND Internal Medicine | DX: I48.0 Paroxysmal atrial fibrillation (principal); Z79.01 Long term (current) use of anticoagulants | CPT/HCPCS: 85610 ==

== ENCOUNTER 2020-06-18 11:47 | Outpatient (CLI) | payer MEDICARE, OTHER ==
[2020-06-18 15:38] LABS: BASOPHILS % (AUTO) 0.5 %; EOSINOPHILS # (AUTO) 0.1 10^3/uL (0.0-0.7); EOSINOPHILS % (AUTO) 0.9 %; HGB - HEMOGLOBIN 12.4 g/dL (12.0-16.0); LYMPHOCYTES # (AUTO) 1.2 10^3/uL (1.5-3.5); LYMPHOCYTES % (AUTO) 16.2 %; MEAN CORPUSCULAR HEMOGLOBIN 31.1 pg (27.0-31.0); MEAN CORPUSCULAR HGB CONC 31.1 g/dL (32.0-36.0); MEAN PLATELET VOLUME 9.6 fL (7.9-10.8); MONOCYTES # (AUTO) 0.6 10^3/uL (0.0-1.0); MONOCYTES % (AUTO) 8.1 %; NEUTROPHILS # (AUTO) 5.4 10^3/uL (1.5-6.6); NEUTROPHILS % (AUTO) 73.8 %; PLT - PLATELET COUNT 253 10^3/uL (130-450); RED BLOOD COUNT 3.99 10^6/uL (4.20-5.40); RED CELL DISTRIBUTION WIDTH 13.8 % (12.0-15.0); WHITE BLOOD COUNT 7.4 x10^3/uL (4.8-10.8)
[2020-06-18 16:02] LABS: CHOL/HDL RATIO 1.5 (<4.4); CHOLESTEROL 114 mg/dL; HDL CHOLESTEROL 76 mg/dL; LDL CHOLESTEROL,CALCULATED 23 mg/dL; LDL/HDL RATIO 0.3 (<4.4); VLDL CHOLESTEROL 15 mg/dL
[2020-06-18 16:11] LABS: FREE T3 3.2 pg/mL (2.5-3.9); FREE T4 (FREE THYROXINE) 0.94 ng/dL (0.58-1.64); THYROID STIMULATING HORMONE 1.28 uIU/mL (0.34-5.60)
== END 2020-06-18 11:48 | disposition home or self-care (01) ==
LOC: LAB.S 11:47
PROVIDERS: ATTEND Internal Medicine
DX: I48.91 Unspecified atrial fibrillation (principal); E04.1 Nontoxic single thyroid nodule; Z86.73 Personal history of transient ischemic attack (TIA), and cerebral infarction without residual deficits
CPT/HCPCS: 36415; 80061; 83721; 84439; 84443; 84481; 85025

== ENCOUNTER 2020-07-05 10:41 | Outpatient (CLI) | payer MEDICARE, OTHER ==
--- NOTE | 2020-07-05 14:27 | CT Report ---
PROCEDURE: CHEST WO INDICATIONS: COUGH, HX OF "TREE-IN-BUD" INFILTRATES DUE TO MAC TECHNIQUE: Noncontrast 5 mm thick sections acquired from the pulmonary apices to the posterior costophrenic angl es. 7 mm thick coronal and sagittal MIP reformats were then acquired. For radiation dose reduction, the following was used: automated exposure control, adjustment of mA and/or kV according to patient size. COMPARISON: 05/06/2017, 06/28/2018 FINDINGS: Image quality: Excellent. Lungs and pleura: Tree-in-bud opacities and peripheral nodularity with bronchiectasis and bronchial w all thickening most pronounced in the right middle lobe and lingula are unchanged compared to the piper or CT. Apical scarring and calcifications are unchanged. No pleural effusions or pneumothorax. Centr al and peripheral airways are patent and normal in caliber. Mediastinum: Heart size is enlarged. Coronary arteries have atherosclerotic calcifications.. No per icardial effusion. No mediastinal adenopathy by size criteria. The thoracic aorta has atheroscleroti c calcifications with no aneurysmal dilatation. Esophagus is normal in caliber. No hiatal hernia. T here is a 2.5 cm right inferior thyroid nodule unchanged compared to prior CTs Bones and chest wall: The visualized lumbar spine has dextroscoliosis. No vertebral body compression fractures. No axillary or supraclavicular adenopathy by size criteria. Abdomen: Visualized upper abdominal solid organs and bowel loops appear normal in the absence of con trast. There is a small hiatal hernia. IMPRESSION: 1. Stable tree-in-bud opacities and peripheral micronodules with bronchiectasis consistent with an at ypical infectious organisms such as JOANIE. No significant interval change. 2. No acute abnormality of the chest. 3. Stable 2.5 cm nodule of the right inferior thyroid lobe. Reviewed by: Bernardo Murry on 07/05/2020 2:25 PM PST Approved by: Bernardo Murry on 07/05/2020 2:25 PM PST Station ID: [id number]
== END 2020-07-05 10:42 | disposition home or self-care (01) ==
LOC: DI 10:41
PROVIDERS: ATTEND Internal Medicine Pulmonary Disease
DX: R91.8 Other nonspecific abnormal finding of lung field (principal); J47.9 Bronchiectasis, uncomplicated; G47.33 Obstructive sleep apnea (adult) (pediatric)
CPT/HCPCS: 71250; 99212; G0463

== ENCOUNTER 2020-07-05 13:54 | Outpatient (CLI) | payer MEDICARE, OTHER ==
--- NOTE | 2020-07-05 14:15 | SLEEP CARE CONSULTATION ---
Information from patient questionnaire entered by Candido Del Rio. I have reviewed and concur with the information entered by Candido Del Rio. This document represents the service I personally performed and the decisions made by me, Reena Gifford ARNP. History of Present Illness Service Date and Time: 07/05/2020 1354 Previous diagnosis: Mild, Obstructive Sleep Apnea-Hypopnea Syndrome AHI: 10.1 Reason for follow up: annual (last seen 06/2019) Equipment type: CPAP Equipment obtained from: [employer] (getting supplies as needed) Mask style: Full face (F20) Backup mask available: Yes (old mask) Last cushion change: last month Prior sleep studies: Yes Year and Where: [facility] HPI additional information: SARAI COYNE was diagnosed to have mild, AHI 10.1, obstructive sleep apnea- hypopnea syndrome and returned today for CPAP therapy annual follow-up. Sleep Study - Results Prior sleep studies: Yes Year and Where: [facility] CPAP Compliance Data - Data Reviewed with Patient Average duration of nightly device use: 8 h 33 min Compliance rate %: 98.9 Current pressure setting (cmH2O): 6-12 Humidity settin Average residual AHI: 1.4 Average large leak: 17 min 20 sec Compliance data discussion: The humidifier reservoir is not closing as it should on her CPAP machine. Subjective Patient concerns: reports: dry mouth, nose, throat (sometimes, able to adjust and it improves). denies: aerophagia, mask discomfort, air blowing in eyes, mask leak noise, condensation in mask/hose, nasal congestion, epistaxis, other Observed to snore while using device: No Current pressure setting perceived as: comfortable On therapy, patient: reports: sleeping better, awakening more refreshed, being more awake and alert during the day, more rested overall. denies: drowsiness wh ile driving Initial [place] Sleepiness Scale score: 10 (in 2010) Current [place] Sleepiness Scale score: 9 Allergies and Home Medications Drug allergies reviewed: Yes (cefuroxime axetil, levofloxacin) Home medication list reviewed: Yes (atorvastatin, mupirocin) Review of Systems Review of systems same as previous: Yes (no changes) Physical Exam Heart Rate: 96 O2 Saturation: 97 Height: 5 ft 4.5 in Weight: 135 lb Body Mass Index: 22.8 BMI Classification: Healthy weight Impression and Plan 1. Obstructive Sleep Apnea-Hypopnea Syndrome, mild, with good treatment compliance and good apnea control. On CPAP therapy, the patient has better sleep quality and is more rested overall. Her machine has a broken latch on the humidifier reservoir and needs to be replaced. The patients CPAP is over 5 years old and of reasonable use. Thus, the CPAP will be updated. The new CPAPs also have a better humidity system which could assist control of patients dryness symptoms. A DWO prescription will be made. Compliance guidelines for new device and follow up discussed. Patient's apnea severity and rationale for treatment to reduce apnea, improve sleep quality and reduce cardiovascular and cerebrovascular events was reviewed. I also reviewed the benefit of consistent device use of CPAP for hypertension and arrhythmia. * Continue auto CPAP pressure at 6-12 cmH2O * Update machine * Notify me if snoring with mask or feeling that the pressure is too much or too little * Call this office if any problems using CPAP * Return for follow up in 1-2 months, or sooner if concerns arise Counseling Topics: Spare mask Visit Type: In Office Time Spent with Patient (minutes): 16 Provider Statement: I spent 100% of the Face to Face Visit with the patient with greater than 50% spent counseling the patient and coordination of care.
== END 2020-07-05 13:55 | disposition home or self-care (01) ==
LOC: SC 13:54
PROVIDERS: ATTEND Nurse Practitioner Family
DX: G47.33 Obstructive sleep apnea (adult) (pediatric) (principal)

== ENCOUNTER 2020-08-03 12:35 | Outpatient (CLI) | payer MEDICARE, OTHER | END 2020-08-03 12:36 | disposition home or self-care (01) | LOC: LAB.S 12:35 | PROVIDERS: ATTEND Internal Medicine | DX: I48.0 Paroxysmal atrial fibrillation (principal); Z79.01 Long term (current) use of anticoagulants | CPT/HCPCS: 85610 ==

== ENCOUNTER 2020-09-03 11:53 | Outpatient (CLI) | payer MEDICARE | END 2020-09-03 11:54 | disposition home or self-care (01) | LOC: LAB.S 11:53 | PROVIDERS: ATTEND Internal Medicine | DX: I48.0 Paroxysmal atrial fibrillation (principal); Z79.01 Long term (current) use of anticoagulants | CPT/HCPCS: 85610 ==

== ENCOUNTER 2020-09-17 14:16 | Outpatient (CLI) | payer MEDICARE, OTHER ==
--- NOTE | 2020-09-18 09:44 | Mammography Report ---
BILATERAL DIGITAL SCREENING MAMMOGRAM 3D/2D: 09/17/2020 CLINICAL: Routine screening. Comparison is made to exams dated: 07/25/2019 mammogram, 08/02/2018 mammogram, 07/21/2017 mammogram, and 07/11/2015 mammogram - [facility]. There are scattered fibroglandular elements in both breasts. There are benign calcifications in both breasts. There also are benign vascular calcifications in parag th breasts. No significant masses, calcifications, or other findings are seen in either breast. There has been no significant interval change. IMPRESSION: BENIGN There is no mammographic evidence of malignancy. A 1 year screening mammogram is recommended. This exam was interpreted at Station ID: [id number]. NOTE: For mammograms, a report in lay terms will be sent to the patient. Approximately 15% of breast malignancies will not be visualized mammographically. In the management of a palpable breast mass, a negative mammogram must not discourage biopsy of a clinically suspicious lesion. Electronically Signed By: Bernard Garcia M.D. ddp/penrad:09/17/2020 16:34:23 ACR BI-RADS Category 2: Benign Finding(s) 3342F PARENCHYMAL PATTERN: (A) - The breast(s) demonstrate(s) scattered fibroglandular densities. BI-RADS CATEGORY: (2) - 2 RECOMMENDATION: (ANNUAL) - Recommend routine annual screening mammography. [id number] 1 year screening LATERALITY: (B)
== END 2020-09-17 14:17 | disposition home or self-care (01) ==
LOC: DI.S 14:16
PROVIDERS: ATTEND Internal Medicine
DX: Z12.31 Encounter for screening mammogram for malignant neoplasm of breast (principal)

== ENCOUNTER 2020-10-22 10:56 | Outpatient (CLI) | payer MEDICARE, OTHER | END 2020-10-22 10:57 | disposition home or self-care (01) | LOC: LAB.S 10:56 | PROVIDERS: ATTEND Internal Medicine | DX: I48.0 Paroxysmal atrial fibrillation (principal); Z79.01 Long term (current) use of anticoagulants | CPT/HCPCS: 85610 ==

== ENCOUNTER 2020-12-14 14:34 | Outpatient (CLI) | payer OTHER, MEDICARE | END 2020-12-14 14:35 | disposition home or self-care (01) | LOC: LAB.S 14:34 | PROVIDERS: ATTEND Internal Medicine | DX: I48.0 Paroxysmal atrial fibrillation (principal); Z79.01 Long term (current) use of anticoagulants | CPT/HCPCS: 85610 ==

== ENCOUNTER 2020-12-25 11:20 | Outpatient (CLI) | payer MEDICARE, OTHER ==
[2020-12-25 14:39] LABS: CALCIUM 9.1 mg/dL (8.5-10.3); CREATININE 0.7 mg/dL (0.4-1.0); POTASSIUM 4.3 mmol/L (3.5-5.0)
== END 2020-12-25 11:21 | disposition home or self-care (01) ==
LOC: LAB.S 11:20
PROVIDERS: ATTEND Physician Assistant Medical
DX: G47.30 Sleep apnea, unspecified (principal); I10 Essential (primary) hypertension; I48.91 Unspecified atrial fibrillation; I48.92 Unspecified atrial flutter; I50.31 Acute diastolic (congestive) heart failure; R00.1 Bradycardia, unspecified; R06.00 Dyspnea, unspecified; R07.9 Chest pain, unspecified
CPT/HCPCS: 36415; 80048

== ENCOUNTER 2021-01-22 13:49 | Outpatient (CLI) | payer MEDICARE, OTHER ==
[2021-01-22 20:16] LABS: CALCIUM 9.1 mg/dL (8.5-10.3); CREATININE 0.6 mg/dL (0.4-1.0); POTASSIUM 4.3 mmol/L (3.5-5.0)
== END 2021-01-22 13:50 | disposition home or self-care (01) ==
LOC: LAB.S 13:49
PROVIDERS: ATTEND Internal Medicine
DX: G47.30 Sleep apnea, unspecified (principal); I11.0 Hypertensive heart disease with heart failure; I50.32 Chronic diastolic (congestive) heart failure; R00.1 Bradycardia, unspecified; R07.9 Chest pain, unspecified; Z79.01 Long term (current) use of anticoagulants; I48.0 Paroxysmal atrial fibrillation
CPT/HCPCS: 36415; 80048; 83880; 85610

== ENCOUNTER 2021-01-25 13:53 | Outpatient (CLI) | payer MEDICARE, OTHER ==
[2021-01-25 20:16] LABS: CREATININE 0.8 mg/dL (0.4-1.0)
== END 2021-01-25 13:54 | disposition home or self-care (01) ==
LOC: LAB.S 13:53
PROVIDERS: ATTEND Physician Assistant Medical
DX: G47.30 Sleep apnea, unspecified (principal); I11.0 Hypertensive heart disease with heart failure; I50.30 Unspecified diastolic (congestive) heart failure; I48.91 Unspecified atrial fibrillation; R00.1 Bradycardia, unspecified; R07.9 Chest pain, unspecified; Z79.01 Long term (current) use of anticoagulants
CPT/HCPCS: 36415; 80048; 83880

== ENCOUNTER 2021-03-29 13:56 | Outpatient (CLI) | payer MEDICARE | END 2021-03-29 13:57 | disposition home or self-care (01) | LOC: LAB.S 13:56 | PROVIDERS: ATTEND Internal Medicine | DX: I48.0 Paroxysmal atrial fibrillation (principal); Z79.01 Long term (current) use of anticoagulants | CPT/HCPCS: 36416; 85610 ==

== ENCOUNTER 2021-04-12 15:17 | Outpatient (CLI) | payer MEDICARE | END 2021-04-12 15:18 | disposition home or self-care (01) | LOC: LAB.S 15:17 | PROVIDERS: ATTEND Internal Medicine | DX: I48.0 Paroxysmal atrial fibrillation (principal); Z79.01 Long term (current) use of anticoagulants | CPT/HCPCS: 85610 ==

== ENCOUNTER 2021-04-29 13:11 | Emergency (ER) | payer MEDICARE ==
[2021-04-29 13:25] VITALS: BP 160/80
--- NOTE | 2021-04-29 16:08 | ED Physician Documentation ---
History of Present Illness - Stated complaint Stated Complaint: BACK PX - Chief complaint Chief Complaint: Back Pain - History obtained from History obtained from: Patient - History of Present Illness Timing: Yesterday Pain level max: 7 Pain level now: 5 - Additonal information Additional information: Patient is an 85-year-old female who states that last night she turned and felt a sharp pain in her right rib. Had increased pain today especially with coughing and sneezing. Took Tylenol without relief. No difficulty breathing. No fevers or chills. States that she did not fall and does not recall any other injury. 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 Cardiovascular: Other (ablation) - Present Medications Home Medications: Ambulatory Orders Medication Instructions Recorded Confirmed Acetaminophen 500 mg PO DAILY 04/08/16 04/08/16 Calcium Carbonate 1 tab PO DAILY 04/08/16 04/08/16 Cholecalciferol [Vitamin D3] 1 tab PO DAILY 04/08/16 04/08/16 Multivitamin [Multivitamins] 1 tab PO DAILY 04/08/16 04/08/16 Omeprazole [PriLOSEC] 20 mg PO DAILY 04/08/16 04/08/16 Sotalol [Betapace] 1 tab PO DAILY 04/08/16 04/08/16 Warfarin [Coumadin] 1 tab PO DAILY 04/08/16 04/08/16 Fluticasone [Flonase] 1 DAILY PM 04/09/16 Loratadine [Allergy Relief] 1 DAILY 04/09/16 HYDROcod/ACETAM 5/325 [[place] 5/325] 1 - 2 ea PO Q6H PRN #14 tablet 04/29/21 - Allergies Allergies/Adverse Reactions: Allergies Allergy/AdvReac Type Severity Reaction Status Date / Time cefuroxime axetil * Allergy Cramps Verified 04/29/21 13:22 [From Ceftin] levofloxacin [From Levaquin] Allergy Hallucinati Verified 04/29/21 13:22 ons - Social History Does the pt smoke?: No Smoking Status: Never smoker Does the pt drink ETOH?: No Does the pt have substance abuse?: No - Immunizations Immunizations are current?: Yes - POLST Patient has POLST: No PD ED PE NORMAL - Vitals Vital signs reviewed: Yes - General General: Alert and oriented X 3, No acute distress - HEENT HEENT: Atraumatic, PERRL, Moist mucous membranes - Neck Neck: Supple, no meningeal sign, No bony TTP - Respiratory Respiratory: No respiratory distress - Derm Derm: Warm and dry - Extremities Extremities: Other (mild TTP R lower ribs posterolateral aspect. no crepitus or ecchymosis. ) - Neuro Neuro: Alert and oriented X 3 Results - Vitals Vitals: Vital Signs - 24 hr 04/29/21 13:22 Temperature 36.5 C Heart Rate 88 Respiratory 16 Rate Blood Pressure 160/80 H O2 Saturation 97 Oxygen O2 Source Room air - Labs Labs: Laboratory Tests 04/29/21 16:20 INR (Fingerstick) 2.8 H - Rads (name of study) R rib xray Radiology: Final report received, EMP read contemporaneously, See rad report (no acute abnormality) PD MEDICAL DECISION MAKING - ED course Complexity details: reviewed results, re-evaluated patient, considered differential, d/w patient ED course: 85 year old female with R rib pain. No acute findings on x-ray. We will have her follow-up with her doctor for further care. I am prescribing a short course of short-acting opioid pain medication for this patient. I have reviewed the patients ADJUSTMENT EXAMINER and no concerning findings were noted. I have discussed that the opioids are for short term therapy only, and will not be refilled from the ED. Patient counseled regarding signs and symptoms for which I believe and urgent re-evaluation would be necessary. Patient with good understanding of and agreement to plan and is comfortable going home at this time This document was made in part using voice recognition software. While efforts are made to proofread this document, sound alike and grammatical errors may occur. Departure - Departure Disposition: 01 Home, Self Care Clinical Impression: Rib contusion Qualifiers: Encounter type: initial encounter Laterality: right Qualified Code(s): S20.211A - Contusion of right front wall of thorax, initial encounter Condition: Good Instructions: ED Contusion Vs Minor Fx Rib Follow-Up: German Castle MD [Primary Care Provider] - Within 1 week Prescriptions: HYDROcod/ACETAM 5/325 [[place] 5/325] 1 - 2 ea PO Q6H PRN #14 tablet PRN Reason: Pain Comments: Your prescription was sent to [facility] in [place]. Your x-ray does not show any acute fractures today. Please follow-up with your doctor for further care. Return if you worsen. I am prescribing a short course of narcotic pain medication for you. These are potentially dangerous and addictive medications that should be used carefully. These medications may constipate you. Take an dxrk-juq-alzgszb stool softener (docusate) twice daily with plenty of water while taking these medications. If you go 24 hours without a bowel movement, take desl-quc-ncwzdqf miralax, per package instructions. Do not drink or drive while taking these medications. If you received narcotic or sedating medications while in the emergency department, do not drive for 24 hours. Store this medication in a safe, secure place and out of reach of children. It is a violation of federal law to give or sell this medication to another person or to use in a manner other than prescribed. The ED will not refill narcotic prescriptions, including prescriptions lost or stolen. To dispose of unwanted medications: 1. [facility] [address] in [place] has a medication drop box. They accept prescription medications (in pill form) Thursday through Thursday 9:00 a.m. to 5:00 p.m. 2. The [facility] accepts prescription medications (in pill form only) for disposal year round. Call for more information. 3. Contact the [facility] for the next [facility] sponsored prescription drug collection event. , [phone], or [phone]; Discharge Date/Time: 04/29/21 18:13
--- NOTE | 2021-04-29 16:43 | XRAY Report ---
PROCEDURE: Ribs w/PA Chest RT INDICATIONS: R rib pain, no fall TECHNIQUE: 2 views of the left ribs were acquired, along with a single view chest. COMPARISON: Chest radiograph, 02/23/2020, chest CT, 07/05/2020 FINDINGS: Surgical changes and devices: Mandibular implants are seen. Bones and chest wall: No displaced fractures can be seen at the marked area of clinical concern No fr actures or dislocations. No suspicious bony lesions. Overlying soft tissues appear unremarkable. D egenerative changes are seen. There is at least moderate levoconvex thoracolumbar scoliosis. Lungs and pleura: No pleural effusions or pneumothorax. Lungs appear clear. Mediastinum: Mediastinal contours appear normal. Calcification is seen of the aortic arch. Heart s ize is normal. IMPRESSION: No displaced rib fracture. No pneumothorax. Levoconvex scoliosis. Reviewed by: Jerald Estrella MD on 04/29/2021 3:41 PM AKFRANCESCO Approved by: Jerald Estrella MD on 04/29/2021 3:41 PM ODESSA Station ID: [id number]
[2021-04-29] MEDS ORDERED: HYDROcod/ACETAM 5/325 MG TABLET PO STA (17:18)
== END 2021-04-29 18:13 | disposition home or self-care (01) ==
LOC: ED 13:11
DX: S20.211A Contusion of right front wall of thorax, initial encounter (principal); X58.XXXA Exposure to other specified factors, initial encounter; I48.91 Unspecified atrial fibrillation; Z79.01 Long term (current) use of anticoagulants
CPT/HCPCS: 71101; 85610; 99283; 99284; A9270

== ENCOUNTER 2021-05-06 11:46 | Outpatient (CLI) | payer MEDICARE | END 2021-05-06 11:47 | disposition home or self-care (01) | LOC: LAB.S 11:46 | PROVIDERS: ATTEND Internal Medicine | DX: I48.0 Paroxysmal atrial fibrillation (principal); Z79.01 Long term (current) use of anticoagulants | CPT/HCPCS: 36416; 85610 ==

== ENCOUNTER 2021-05-13 13:02 | Outpatient (CLI) | payer MEDICARE ==
--- NOTE | 2021-05-13 16:24 | CT Report ---
PROCEDURE: CHEST WO INDICATIONS: PULMONARY MYCOBACTERIAL INFECTION,AFIB TECHNIQUE: Noncontrast images were acquired from the pulmonary apices to the posterior costophrenic angles. Mul tiplanar MIP reformats were then acquired. For radiation dose reduction, the following was used: au tomated exposure control, adjustment of mA and/or kV according to patient size. COMPARISON: 08/04/2020. FINDINGS: Image quality: Excellent. Lungs and pleura: Biapical scarring is again seen. Tree-in-bud opacities and peripheral nodularity wi th bronchiectasis and bronchial wall thickening is again seen throughout bilateral lung vargas more p rominent in right middle lobe and left lingular segment as well as anterior aspect of left lower lobe unchanged in appearance compared to previous study. Calcified granuloma are again seen scattered in right upper and middle lobe unchanged from prior studies. Larger soft tissue density nodules are agai n seen in anterior aspect of right upper lobe and measures 5 mm in size series 4 images 107 and 143 u nchanged from prior study. No pleural effusions or pneumothorax. Central and peripheral airways are patent and normal in caliber. Mediastinum: Heart size is enlarged. No pericardial effusion. Mildly prominent mediastinal lymph no jo are seen measures up to 1 cm and precarinal space series 3 image 30 unchanged from prior study. M ild to moderate atherosclerotic calcifications in coronary vessels and thoracic aorta are seen. Thora cic aorta and central pulmonary arteries are normal in size. Esophagus is normal in caliber. No hia marisela hernia. Bones and chest wall: No suspicious bony lesions. No vertebral body compression fractures. No axil fredrick or supraclavicular adenopathy by size criteria. Is asymmetric and enlarged right thyroid lobe i s again seen with suggestion of a hypodense nodule in lower pole of right thyroid lobe and measures 2 .5 x 2 cm in size unchanged from prior study series 3 image 12.. Abdomen: Visualized upper abdominal solid organs and bowel loops appear normal in the absence of con trast. IMPRESSION: 1. No significant interval changes from previous studies. Stable tree-in-bud appearance and periphera l nodular densities associated with bronchiectasis as described above, suggestive of atypical infecti ous organisms such as JOANIE. No new pulmonary nodule is seen. No pleural effusion or pneumothorax. 2. No acute airspace opacities. Airway is patent 3. Borderline enlarged mediastinal lymph nodes which may represent mild reactive inflammatory nodes. 4. Stable appearance of right thyroid nodule. CLINICAL RECOMMENDATION STATEMENTS: In patients <35 years with an ITN detected on CT, MRI, or extrathyroidal ultrasound, the Committee re commends further evaluation with dedicated thyroid ultrasound if the nodule is ?1 cm and has no suspi cious imaging features, and if the patient has normal life expectancy. In patients ?35 years with an ITN detected on CT, MRI, or extrathyroidal ultrasound, the Committee re commends further evaluation with dedicated thyroid ultrasound if the nodule is ?1.5 cm and has no bentley picious imaging features, and if the patient has normal life expectancy. (ACR, 2014) Reviewed by: Valeriano Hollis MD on 05/13/2021 4:23 PM PDT Approved by: Valeriano Hollis MD on 05/13/2021 4:23 PM PDT Station ID: [id number]
== END 2021-05-13 13:03 | disposition home or self-care (01) ==
LOC: DI 13:02
PROVIDERS: ATTEND Internal Medicine Pulmonary Disease
DX: A31.0 Pulmonary mycobacterial infection (principal); I48.91 Unspecified atrial fibrillation; R59.0 Localized enlarged lymph nodes; E04.1 Nontoxic single thyroid nodule

== ENCOUNTER 2021-06-06 16:28 | Outpatient (CLI) | payer MEDICARE | END 2021-06-06 16:29 | disposition home or self-care (01) | LOC: COV 16:28 | PROVIDERS: ATTEND Family Medicine | DX: R53.83 Other fatigue (principal); R68.83 Chills (without fever); J34.89 Other specified disorders of nose and nasal sinuses; Z20.822 Contact with and (suspected) exposure to COVID-19 ==

== ENCOUNTER 2021-06-17 15:55 | Outpatient (CLI) | payer MEDICARE ==
[2021-06-17 20:52] LABS: BUN - BLOOD UREA NITROGEN 20 mg/dL (6-20); CALCIUM 8.8 mg/dL (8.5-10.3); CARBON DIOXIDE - CO2 30 mmol/L (21-32); CHLORIDE 97 mmol/L (101-111); CHOL/HDL RATIO 1.8 (<4.4); CHOLESTEROL 111 mg/dL; CREATININE 0.7 mg/dL (0.4-1.0); GFR - MDRD 80 (>89); GLUCOSE 141 mg/dL (70-100); HDL CHOLESTEROL 63 mg/dL; LDL CHOLESTEROL,CALCULATED 28 mg/dL; LDL/HDL RATIO 0.4 (<4.4); POTASSIUM 4.2 mmol/L (3.5-5.0); SODIUM 135 mmol/L (135-145); TRIGLYCERIDES 99 mg/dL; VLDL CHOLESTEROL 20 mg/dL
== END 2021-06-17 15:56 | disposition home or self-care (01) ==
LOC: LAB.S 15:55
PROVIDERS: ATTEND Internal Medicine
DX: I48.91 Unspecified atrial fibrillation (principal); E78.5 Hyperlipidemia, unspecified
CPT/HCPCS: 36415; 80048; 80061; 83721

== ENCOUNTER 2021-06-21 17:39 | Outpatient (CLI) | payer MEDICARE | END 2021-06-21 17:40 | disposition home or self-care (01) | LOC: LAB.S 17:39 | PROVIDERS: ATTEND Internal Medicine | DX: I48.0 Paroxysmal atrial fibrillation (principal); Z79.01 Long term (current) use of anticoagulants | CPT/HCPCS: 36416; 85610 ==

== ENCOUNTER 2021-07-02 13:36 | Outpatient (CLI) | payer MEDICARE ==
--- NOTE | 2021-07-02 14:23 | SLEEP CARE CONSULTATION ---
Information from patient questionnaire entered by Manuel Mcgraw MA. I have reviewed and concur with the information entered by Manuel Mcgraw MA. This document represents the service I personally performed and the decisions made by , Reena Gifford ARNP. History of Present Illness Service Date and Time: 07/02/2021 1336 Previous diagnosis: Mild, Obstructive Sleep Apnea-Hypopnea Syndrome AHI: 10.1 Reason for follow up: annual Equipment type: CPAP Equipment obtained from: [employer] (getting supplies as needed) Mask style: Full face (F20) Mask brand: Resmed Backup mask available: Yes (old mask) Last cushion change: over 2 months Prior sleep studies: Yes [facility] HPI additional information: SARAI COYNE was diagnosed to have mild, AHI 10.1, obstructive sleep apnea- hypopnea syndrome and returned today for CPAP therapy annual follow-up. Sleep Study - Results Prior sleep studies: Yes Year and Where: [facility] CPAP Compliance Data Compliance data discussion: Stopped using recalled device about 2 months ago. Subjective Patient concerns: denies: aerophagia, mask discomfort, air blowing in eyes, mask leak noise, condensation in mask/hose, nasal congestion, dry mouth, nose, throat, epistaxis, other Observed to snore while using device: No Current pressure setting perceived as: comfortable On therapy, patient: reports: sleeping better, awakening more refreshed, being more awake and alert during the day, more rested overall. denies: drowsiness while driving Initial [place] Sleepiness Scale score: 10 (in 2010) Current [place] Sleepiness Scale score: 10 (2020) Allergies and Home Medications Home medication list reviewed: Yes Allergy and home medication list: Atorvastatin Losartan Furosemide Review of Systems Review of systems same as previous: Yes (no changes ) Physical Exam Vital signs obtained and entered by: Mariluz ANDRADE Blood Pressure: 124/80 (left) Cuff size: wrist Heart Rate: 87 O2 Saturation: 98 (with mask) Height: 5 ft 4 in Weight: 129 lb (without boots) Body Mass Index: 22.1 BMI Classification: Healthy weight Impression and Plan 1. Obstructive Sleep Apnea-Hypopnea Syndrome, mild, with fair treatment compliance and unknown apnea control. On CPAP therapy, the patient has better sleep quality and is more rested overall. Patient has not been using her CPAP due to the recall. She states she is sleeping fine but has noticed that she is more tired in the last few months. Patient has already registered their device for the recall. Patient denies any black particles seen in machine or hoses, any unusual odors coming from device. Patient has not experienced any physical symptoms such as upper airway irritation, headache, skin or eye irritation, asthma, nausea/vomiting, difficulty breathing or chest pain. If patient is not able to sleep due to waking up choking, gasping for air or other respiratory distress that they may decide to continue using it until it is either replaced or repaired. Patient has less apneas when sleeping on her side and may continute to practice positional therapy by staying off their back to control apnea until she is able to get a new device. She states she will be eligible for a new device until January of next year. Patient will call to update device at that time if she has not received a new machine from [employer] yet. Patient voiced understanding and agreement with plan. Patient's apnea severity and rationale for treatment to reduce apnea, improve sleep quality and reduce cardiovascular and cerebrovascular events was reviewed. I also reviewed the benefit of consistent device use of CPAP for hypertension and arrhythmia. * Positional therapy until her CPAP machine is replaced * Continue auto CPAP pressure at 6-12 cmH2O once it is replaced * Notify me if snoring with mask or feeling that the pressure is too much or too little * Maintain a healthy weight * Call this office if any problems using CPAP * Return for follow up in 1 year, or sooner if concerns arise Counseling Topics: Spare mask, Weight loss health impact Visit Type: In Office Time Spent with Patient (minutes): 20 Provider Statement: I spent 100% of the Face to Face Visit with the patient with greater than 50% spent counseling the patient and coordination of care.
[2021-07-02 14:24] VITALS: BP 124/80
== END 2021-07-02 13:37 | disposition home or self-care (01) ==
LOC: SC 13:36
PROVIDERS: ATTEND Nurse Practitioner Family
DX: G47.33 Obstructive sleep apnea (adult) (pediatric) (principal)
CPT/HCPCS: 99213; G0463; 99212

== ENCOUNTER 2021-07-05 11:53 | Outpatient (CLI) | payer MEDICARE | END 2021-07-05 11:54 | disposition home or self-care (01) | LOC: LAB.S 11:53 | PROVIDERS: ATTEND Internal Medicine | DX: I48.0 Paroxysmal atrial fibrillation (principal); Z79.01 Long term (current) use of anticoagulants | CPT/HCPCS: 36416; 85610 ==

== ENCOUNTER 2021-07-29 13:58 | Outpatient (CLI) | payer MEDICARE ==
--- NOTE | 2021-07-29 15:14 | DEXA Report ---
PROCEDURE: Dexa Spine and/or Hip INDICATIONS: NORMAL MENOPAUSE TECHNIQUE: Dual energy x-ray absorptiometry (DXA) was performed on a GITR System. Regions measur ed are the AP Spine, femoral neck, and if needed forearm. COMPARISON: 08/05/2017. FINDINGS: Lumbar Spine: Bone Mineral Density 0.960 g/cm/cm,T score -2.0. There is interval 6.3% decrease in total lumbar s pine bone mineral density. Left Hip: Bone Mineral Density 0.662 g/cm/cm,T score -2.7. there is interval 10.4% decrease in total left hip b one mineral density. Left Femoral Neck: Bone Mineral Density 0.689 g/cm/cm, T score -2.5. (T score greater or equal to -1.0: NORMAL) (T score from -1.1 to -2.4: OSTEOPENIA) (T score less than or equal to -2.5 to: OSTEOPOROSIS) Impression: Osteoporosis. Patients with diagnosis of osteoporosis or osteopenia should have regular bone mineral density assess ment. For those eligible for Medicare, routine testing is allowed once every 2 years. Testing frequ ency can be increased for patients who have rapidly progressing disease or for those who are receivin g medical therapy to restore bone mass. Reviewed by: Valeriano Hollis MD on 07/29/2021 3:13 PM PST Approved by: Valeriano Hollis MD on 07/29/2021 3:13 PM PST Station ID: [id number]
== END 2021-07-29 13:59 | disposition home or self-care (01) ==
LOC: DI 13:58
PROVIDERS: ATTEND Internal Medicine
DX: M81.0 Age-related osteoporosis without current pathological fracture (principal); Z78.0 Asymptomatic menopausal state

== ENCOUNTER 2021-08-02 16:01 | Outpatient (CLI) | payer MEDICARE | END 2021-08-02 16:02 | disposition home or self-care (01) | LOC: LAB.S 16:01 | PROVIDERS: ATTEND Internal Medicine | DX: I48.0 Paroxysmal atrial fibrillation (principal); Z79.01 Long term (current) use of anticoagulants | CPT/HCPCS: 36416; 85610 ==

== ENCOUNTER 2021-08-21 14:05 | Outpatient (CLI) | payer MEDICARE | END 2021-08-21 14:06 | disposition home or self-care (01) | LOC: LAB.S 14:05 | PROVIDERS: ATTEND Internal Medicine | DX: I48.0 Paroxysmal atrial fibrillation (principal); Z79.01 Long term (current) use of anticoagulants | CPT/HCPCS: 36416; 85610 ==

== ENCOUNTER 2021-08-26 08:00 | Outpatient (CLI) | payer MEDICARE ==
--- NOTE | 2021-08-27 14:36 | Mammography Report ---
BILATERAL DIGITAL SCREENING MAMMOGRAM 3D/2D: 08/26/2021 CLINICAL: Routine screening. Family history of breast cancer. Comparison is made to exams dated: 09/17/2020 mammogram, 07/25/2019 mammogram, and 08/02/2018 mammogra m - [facility]. There are scattered fibroglandular elements in both breasts. There are benign calcifications in both breasts. There also are benign vascular calcifications in parag th breasts. No significant masses, calcifications, or other findings are seen in either breast. There has been no significant interval change. IMPRESSION: BENIGN There is no mammographic evidence of malignancy. A 1 year screening mammogram is recommended. This exam was interpreted at Station ID: [id number]. NOTE: For mammograms, a report in lay terms will be sent to the patient. Approximately 15% of breast malignancies will not be visualized mammographically. In the management of a palpable breast mass, a negative mammogram must not discourage biopsy of a clinically suspicious lesion. Electronically Signed By: Edgardo busch/everett:08/26/2021 14:50:16 ACR BI-RADS Category 2: Benign Finding(s) 3342F PARENCHYMAL PATTERN: (A) - The breast(s) demonstrate(s) scattered fibroglandular densities. BI-RADS CATEGORY: (2) - 2 RECOMMENDATION: (ANNUAL) - Recommend routine annual screening mammography. [id number] 1 year screening LATERALITY: (B)
== END 2021-08-26 23:59 | disposition home or self-care (01) ==
LOC: DI.S 08:00
PROVIDERS: ATTEND Internal Medicine
DX: Z12.31 Encounter for screening mammogram for malignant neoplasm of breast (principal)

== ENCOUNTER 2021-09-20 14:32 | Outpatient (CLI) | payer MEDICARE | END 2021-09-20 14:33 | disposition home or self-care (01) | LOC: LAB.S 14:32 | PROVIDERS: ATTEND Internal Medicine | DX: I48.0 Paroxysmal atrial fibrillation (principal); Z79.01 Long term (current) use of anticoagulants | CPT/HCPCS: 36416; 85610 ==

== ENCOUNTER 2021-11-16 13:59 | Outpatient (CLI) | payer MEDICARE | END 2021-11-16 14:00 | disposition home or self-care (01) | LOC: LAB.S 13:59 | PROVIDERS: ATTEND Internal Medicine | DX: I48.0 Paroxysmal atrial fibrillation (principal); Z79.01 Long term (current) use of anticoagulants | CPT/HCPCS: 36416; 85610 ==

== ENCOUNTER 2021-12-20 15:01 | Outpatient (CLI) | payer MEDICARE | END 2021-12-20 15:02 | disposition home or self-care (01) | LOC: LAB.S 15:01 | PROVIDERS: ATTEND Internal Medicine | DX: I48.0 Paroxysmal atrial fibrillation (principal); Z79.01 Long term (current) use of anticoagulants | CPT/HCPCS: 36416; 85610 ==

== ENCOUNTER 2022-02-01 13:27 | Outpatient (CLI) | payer MEDICARE | END 2022-02-01 13:28 | disposition home or self-care (01) | LOC: LAB.S 13:27 | PROVIDERS: ATTEND Internal Medicine | DX: I48.0 Paroxysmal atrial fibrillation (principal); Z79.01 Long term (current) use of anticoagulants | CPT/HCPCS: 36416; 85610 ==

== ENCOUNTER 2022-05-20 12:43 | Outpatient (CLI) | payer MEDICARE ==
[2022-05-20 13:31] VITALS: BP 140/74
--- NOTE | 2022-05-20 13:31 | SLEEP CARE CONSULTATION ---
Information from patient questionnaire entered by Dileep Eddy. I have reviewed and concur with the information entered by Dileep Eddy. This document represents the service I personally performed and the decisions made by me, Reena Gifford ARNP. History of Present Illness Service Date and Time: 05/20/2022 1243 Previous diagnosis: Mild, Obstructive Sleep Apnea-Hypopnea Syndrome AHI: 10.1 Reason for follow up: other (10 MONTH F/U, INQUIRE ABOUT INSPIRE) Equipment type: CPAP Equipment obtained from: [employer] (getting supplies as needed) Mask style: Full face (F20) Mask brand: Resmed Prior sleep studies: Yes Year and Where: [facility] HPI additional information: SARAI COYNE was diagnosed to have mild, AHI 10.1, obstructive sleep apnea- hypopnea syndrome and returned today for CPAP therapy 10 month follow-up. Sleep Study - Results Prior sleep studies: Yes Year and Where: [facility] CPAP Compliance Data Compliance data discussion: She has not been using her Dreamstation since 05/09/21 because of the recall. She just received a box with a new CPAP from [employer] but wants to change her type of therapy because she does not like using the CPAP overall. Subjective Missed days of use due to: reports: mask issues, other (recalled Dreamstation) Patient concerns: reports: air blowing in eyes, mask leak noise. denies: aerophagia, mask discomfort, condensation in mask/hose, nasal congestion, dry mouth, nose, throat, epistaxis Observed to snore while using device: No Current pressure setting perceived as: comfortable Initial [place] Sleepiness Scale score: 10 (in 2010) Current [place] Sleepiness Scale score: 10 (05/21/22) Allergies and Home Medications Home medication list reviewed: Yes (Alendronate) Allergy and home medication list: Allergies cefuroxime axetil * [From Ceftin] Allergy (Verified 04/29/21 13:22) Cramps levofloxacin [From Levaquin] Allergy (Verified 04/29/21 13:22) Hallucinations Review of Systems Review of systems same as previous: No (Osteoporosis) Physical Exam Vital signs obtained and entered by: BAYRON CARRIZALES Blood Pressure: 140/74 (left arm ) Cuff size: regular Heart Rate: 80 O2 Saturation: 95 Height: 5 ft 4 in Weight: 121 lb Body Mass Index: 20.7 BMI Classification: Normal Impression and Plan 1. Obstructive Sleep Apnea-Hypopnea Syndrome, mild. Patient has not been using her CPAP since it has been on the recall. She just obtained a new machine from [employer] 2-3 weeks ago and would like to see if there is a different option. She is mild so Inspire therapy is not really an option. I discussed with her that she could try oral appliance therapy. This is not always covered by insurance but she can check it out to see if they will pay for it. She would like to try. I advised her that she can look into this and call us if she should get an oral device made. I also advised that she try to use her new CPAP in the meantime to control her apneas and she voiced understanding. She may just continue with the CPAP and do a follow up a month later to update her compliance with her DME. She will let us know. Patient's apnea severity and rationale for treatment to reduce apnea, improve sleep quality and reduce cardiovascular and cerebrovascular events was reviewed. I also reviewed the benefit of consistent device use of CPAP for hypertension and arrhythmia. * Continue auto CPAP pressure at 6-12 cmH2O * Start oral appliance therapy if covered by insurance * Notify me if snoring with mask or feeling that the pressure is too much or too little * Call this office if any problems using CPAP * Return for follow up one month after getting oral appliance or with new CPAP, or sooner if concerns arise Counseling Topics: Weight control Visit Type: In Office Time Spent with Patient (minutes): 20 Provider Statement: I spent 100% of the Face to Face Visit with the patient with greater than 50% spent counseling the patient and coordination of care.
== END 2022-05-20 12:44 | disposition home or self-care (01) ==
LOC: SC 12:43
PROVIDERS: ATTEND Nurse Practitioner Family
DX: G47.33 Obstructive sleep apnea (adult) (pediatric) (principal)
CPT/HCPCS: 99213; G0463; 99212

== ENCOUNTER 2022-05-26 11:24 | Outpatient (CLI) | payer MEDICARE | END 2022-05-26 11:25 | disposition home or self-care (01) | LOC: LAB.S 11:24 | PROVIDERS: ATTEND Internal Medicine | DX: I48.0 Paroxysmal atrial fibrillation (principal); Z79.01 Long term (current) use of anticoagulants | CPT/HCPCS: 36416; 85610 ==

== ENCOUNTER 2022-06-16 11:16 | Outpatient (CLI) | payer MEDICARE ==
[~2022-06-16 11:16] MED LIST: GADOBUTROL 7.5 MMOL/7.5 ML VIAL ONE
[2022-06-16 11:35] LABS: CREATININE 0.7 mg/dL (0.4-1.0)
[2022-06-16] MEDS ORDERED: GADOBUTROL 7.5 MMOL/7.5 ML VIAL ONE (12:38)
[2022-06-16] MEDS ORDERED: GADOBUTROL 7.5 MMOL/7.5 ML VIAL IVP ONE (17:35)
--- NOTE | 2022-06-16 21:22 | MRI Report ---
PROCEDURE: BRAIN W/WO INDICATIONS: BENIGN NEOPLASM OF CEREBRAL MENINGES CONTRAST: 5.5ml gadavist TECHNIQUE: Noncontrast axial T1 spin echo, axial T2 fast spin echo, sagittal and axial FLAIR, coronal T2 fast sp in echo, axial gradient echo, axial diffusion and ADC through the brain. After the administration of contrast, axial and coronal T1 spin echo with fat saturation through the brain. COMPARISON: 07/11/2015 MRI brain FINDINGS: Numerous scattered foci of susceptibility artifact near the mccoy-white matter interface in both cereb ral cerebellar hemispheres, not entirely specific but strongly suggestive of amyloid angiopathy. Enhancing extra-axial dural based mass measuring 11 mm overlying the posterior left parietal convexit y is unchanged. No additional abnormal intracranial enhancement. And moderate global cerebral volume loss and chronic microvascular ischemic change. No restricted dif fusion to indicate recent ischemia. The major intracranial vascular flow-related signal voids are madelin ntained. No mass effect or midline shift. Midline structures normal in configuration. No gross orbita l abnormality. Paranasal sinuses and mastoid air cells are predominantly clear. IMPRESSION: Unchanged approximately 11 mm left parietal meningioma. Findings of amyloid angiopathy, moderate global cerebral volume loss, and moderate chronic microvascu lar ischemic changes. Reviewed by: Shilo Lees MD on 06/16/2022 9:21 PM PDT Approved by: Shilo Lees MD on 06/16/2022 9:21 PM PDT Station ID: [id number]
== END 2022-06-16 11:17 | disposition home or self-care (01) ==
LOC: LAB 11:16
PROVIDERS: ATTEND Internal Medicine
DX: D32.0 Benign neoplasm of cerebral meninges (principal); I68.0 Cerebral amyloid angiopathy; G31.89 Other specified degenerative diseases of nervous system; I67.82 Cerebral ischemia
CPT/HCPCS: 36415; 70553; 82565; A9585

== ENCOUNTER 2022-07-02 14:25 | Outpatient (CLI) | payer MEDICARE ==
[2022-07-02 19:51] LABS: BASOPHILS % (AUTO) 0.6 %; EOSINOPHILS # (AUTO) 0.1 10^3/uL (0.0-0.7); EOSINOPHILS % (AUTO) 0.9 %; HCT - HEMATOCRIT 39.6 % (37.0-47.0); HGB - HEMOGLOBIN 12.5 g/dL (12.0-16.0); LYMPHOCYTES # (AUTO) 1.6 10^3/uL (1.5-3.5); LYMPHOCYTES % (AUTO) 22.9 %; MEAN CORPUSCULAR HEMOGLOBIN 32.3 pg (27.0-31.0); MEAN CORPUSCULAR HGB CONC 31.6 g/dL (32.0-36.0); MEAN CORPUSCULAR VOLUME 102.3 fL (81.0-99.0); MEAN PLATELET VOLUME 9.4 fL (7.9-10.8); MONOCYTES # (AUTO) 0.6 10^3/uL (0.0-1.0); MONOCYTES % (AUTO) 8.1 %; NEUTROPHILS # (AUTO) 4.7 10^3/uL (1.5-6.6); NEUTROPHILS % (AUTO) 67.4 %; PLT - PLATELET COUNT 299 10^3/uL (130-450); RED BLOOD COUNT 3.87 10^6/uL (4.20-5.40); RED CELL DISTRIBUTION WIDTH 13.8 % (12.0-15.0); WHITE BLOOD COUNT 6.9 x10^3/uL (4.8-10.8)
[2022-07-02 20:08] LABS: BUN - BLOOD UREA NITROGEN 19 mg/dL (6-20); CALCIUM 9.1 mg/dL (8.5-10.3); CARBON DIOXIDE - CO2 33 mmol/L (21-32); CHLORIDE 96 mmol/L (101-111); CHOL/HDL RATIO 1.5 (<4.4); CHOLESTEROL 122 mg/dL; CREATININE 0.7 mg/dL (0.4-1.0); GFR - MDRD 80 (>89); GLUCOSE 173 mg/dL (70-100); HDL CHOLESTEROL 83 mg/dL; LDL CHOLESTEROL,CALCULATED 31 mg/dL; LDL/HDL RATIO 0.4 (<4.4); POTASSIUM 4.1 mmol/L (3.5-5.0); SODIUM 137 mmol/L (135-145); TRIGLYCERIDES 41 mg/dL; VLDL CHOLESTEROL 8 mg/dL
== END 2022-07-02 14:26 | disposition home or self-care (01) ==
LOC: LAB.S 14:25
PROVIDERS: ATTEND Internal Medicine
DX: I48.0 Paroxysmal atrial fibrillation (principal); E78.5 Hyperlipidemia, unspecified; Z79.01 Long term (current) use of anticoagulants
CPT/HCPCS: 36415; 80048; 80061; 83721; 85025; 85610

== ENCOUNTER 2022-10-02 09:16 | Outpatient (CLI) | payer MEDICARE | END 2022-10-02 09:17 | disposition home or self-care (01) | LOC: LAB.S 09:16 | PROVIDERS: ATTEND Internal Medicine | DX: I48.0 Paroxysmal atrial fibrillation (principal); Z79.01 Long term (current) use of anticoagulants | CPT/HCPCS: 36416; 85610 ==

== ENCOUNTER 2022-10-13 13:54 | Outpatient (CLI) | payer MEDICARE ==
[2022-10-13 20:04] LABS: BASOPHILS % (AUTO) 0.5 %; EOSINOPHILS # (AUTO) 0.1 10^3/uL (0.0-0.7); EOSINOPHILS % (AUTO) 1.1 %; HCT - HEMATOCRIT 40.7 % (37.0-47.0); HGB - HEMOGLOBIN 12.6 g/dL (12.0-16.0); LYMPHOCYTES # (AUTO) 1.6 10^3/uL (1.5-3.5); LYMPHOCYTES % (AUTO) 19.6 %; MEAN CORPUSCULAR HEMOGLOBIN 32.3 pg (27.0-31.0); MEAN CORPUSCULAR VOLUME 104.4 fL (81.0-99.0); MEAN PLATELET VOLUME 9.7 fL (7.9-10.8); MONOCYTES # (AUTO) 0.6 10^3/uL (0.0-1.0); MONOCYTES % (AUTO) 7.1 %; NEUTROPHILS # (AUTO) 5.6 10^3/uL (1.5-6.6); NEUTROPHILS % (AUTO) 71.4 %; PLT - PLATELET COUNT 257 10^3/uL (130-450); RED CELL DISTRIBUTION WIDTH 13.6 % (12.0-15.0); WHITE BLOOD COUNT 7.9 x10^3/uL (4.8-10.8)
[2022-10-13 20:17] LABS: ALBUMIN 4.2 g/dL (3.2-5.5); ALBUMIN/GLOBULIN RATIO 1.3 (1.0-2.2); BILIRUBIN,TOTAL 0.6 mg/dL (0.2-1.0); CALCIUM 10.4 mg/dL (8.5-10.3); CREATININE 0.6 mg/dL (0.4-1.0); POTASSIUM 4.4 mmol/L (3.5-5.0); TOTAL PROTEIN 7.5 g/dL (6.7-8.2)
[2022-10-13 20:32] LABS: ESTIMATED AVERAGE GLUCOSE 146 mg/dL (70-100); HEMOGLOBIN A1c% 6.7 % (4.27-6.07)
[2022-10-13 20:36] LABS: PARTIAL THROMBOPLASTIN TIME 30.7 secs (24.9-33.3)
[2022-10-13 21:12] LABS: INR 1.2 (0.8-1.2); PT - PROTHROMBIN TIME 13.2 secs (9.9-12.6)
== END 2022-10-13 13:55 | disposition home or self-care (01) ==
LOC: LAB.S 13:54
PROVIDERS: ATTEND Internal Medicine
DX: D32.0 Benign neoplasm of cerebral meninges (principal); R73.01 Impaired fasting glucose
CPT/HCPCS: 36415; 80053; 83036; 85025; 85610; 85730

== ENCOUNTER 2022-10-17 12:11 | Outpatient (CLI) | payer MEDICARE ==
[2022-10-17 14:25] LABS: BASOPHILS % (AUTO) 0.3 %; EOSINOPHILS # (AUTO) 0.1 10^3/uL (0.0-0.7); EOSINOPHILS % (AUTO) 0.9 %; HCT - HEMATOCRIT 41.1 % (37.0-47.0); HGB - HEMOGLOBIN 12.8 g/dL (12.0-16.0); LYMPHOCYTES # (AUTO) 1.5 10^3/uL (1.5-3.5); MEAN CORPUSCULAR HEMOGLOBIN 32.1 pg (27.0-31.0); MEAN CORPUSCULAR HGB CONC 31.1 g/dL (32.0-36.0); MEAN PLATELET VOLUME 9.5 fL (7.9-10.8); MONOCYTES # (AUTO) 0.5 10^3/uL (0.0-1.0); MONOCYTES % (AUTO) 6.3 %; NEUTROPHILS # (AUTO) 6.5 10^3/uL (1.5-6.6); NEUTROPHILS % (AUTO) 75.3 %; PLT - PLATELET COUNT 250 10^3/uL (130-450); RED BLOOD COUNT 3.99 10^6/uL (4.20-5.40); RED CELL DISTRIBUTION WIDTH 13.3 % (12.0-15.0); WHITE BLOOD COUNT 8.6 x10^3/uL (4.8-10.8)
== END 2022-10-17 12:12 | disposition home or self-care (01) ==
LOC: LAB.S 12:11
PROVIDERS: ATTEND Internal Medicine Cardiovascular Disease
DX: I11.0 Hypertensive heart disease with heart failure (principal); I50.32 Chronic diastolic (congestive) heart failure; I48.91 Unspecified atrial fibrillation
CPT/HCPCS: 36415; 85025

== ENCOUNTER 2023-03-16 11:28 | Outpatient (CLI) | payer MEDICARE ==
--- NOTE | 2023-03-16 13:33 | XRAY Report ---
PROCEDURE: Chest 2 View X-Ray INDICATIONS: PULMONARY MYCOBACTERIAL INFECTION TECHNIQUE: 2 views of the chest were acquired. COMPARISON: 05/13/2021, 04/29/2021 FINDINGS: Surgical changes and devices: None. Lungs and pleura: There are coarse interstitial markings bilaterally. No acute dense consolidations. Several small chronic calcified nodules project over both hilar regions and the right mid and lower lung. No suspicious solid mass. Mild biapical pleural plaquing. Mediastinum: Mediastinal contours appear normal. Heart size is normal. Bones and chest wall: Decreased mineralization. Soft tissues are normal. IMPRESSION: 1. Chronic appearing interstitial lung disease and probable remote exposure to granulomatous disease. 2. No acute process. Reviewed by: Anusha Becker MD on 03/16/2023 1:05 PM PDT Approved by: Anusha Becker MD on 03/16/2023 1:05 PM PDT Station ID: [id number]
== END 2023-03-16 11:29 | disposition home or self-care (01) ==
LOC: DI.S 11:28
PROVIDERS: ATTEND Internal Medicine
DX: A31.0 Pulmonary mycobacterial infection (principal)

== ENCOUNTER 2023-04-15 12:09 | Outpatient (CLI) | payer MEDICARE ==
--- NOTE | 2023-04-15 15:55 | Ultrasound Report ---
PROCEDURE: Head or Neck Soft Tissue INDICATIONS: THYROID NODULE TECHNIQUE: Real-time scanning was performed of the thyroid gland, with image documentation. COMPARISON: CT 05/13/2021 FINDINGS: Right: Thyroid lobe measures 3.9 x 2.1 x 2 0 cm, and is homogeneous in echotexture. Left: Thyroid lobe measures 2.8 x 1.0 x 0.8 cm, and is homogenous in echotexture. Isthmus: 2 mm thick. Nodule number: One Location: Right Size: 2.2 x 1.7 x 2.0 cm compared to 2.5 x 2.0 cm. Composition: Solid. Echogenicity: Hypoechoic. Shape: wider than tall. Margins: Smooth (0 points). Echogenic foci: Macrocalcification. Total points: 5 ACR TI-RADS category: 4. IMPRESSION: Category 4 lesion relatively stable in size compared to prior exam. Based on criteria below, size wou ld qualify for fine-needle aspiration. However, given stability since 2020, continued interval follow -up may be obtained. ACR TI-RADS definitions and recommendations: TI-RADS 1 (benign): 0 points. FNA not needed. TI-RADS 2 (not suspicious): 2 points. FNA not needed. TI-RADS 3 (mildly suspicious): 3 points. "FNA if 2.5 cm or larger, follow up if 1.5 cm or larger (at 1, 3, and 5 years). TI-RADS 4 (moderately suspicious): 4-6 points. "FNA if 1.5 cm or larger, follow up if 1 cm or larger (at 1, 2, 3, and 5 years). TI-RADS 5 (highly suspicious): 7 points or more. "FNA if 1 cm or larger, follow up if 0.5 cm or larger (every year for 5 years). Reviewed by: Ivet Marrero MD on 04/15/2023 3:54 PM PDT Approved by: Ivet Marrero MD on 04/15/2023 3:54 PM PDT Station ID: [id number]
== END 2023-04-15 12:10 | disposition home or self-care (01) ==
LOC: DI 12:09
PROVIDERS: ATTEND Internal Medicine
DX: E04.1 Nontoxic single thyroid nodule (principal)

== ENCOUNTER 2023-04-23 12:26 | Emergency (ER) | payer MEDICARE ==
--- NOTE | 2023-04-23 12:56 | ED Physician Documentation ---
PD HPI CHEST PAIN - Stated complaint Stated Complaint: CHEST PX - Chief complaint Chief Complaint: Abd Pain - History obtained from History obtained from: Patient - Additional information Additional information: Patient is an 87-year-old female with a history of atrial fibrillation on Eliquis presenting for evaluation of what she describes as heartburn that occurred overnight. Yesterday for dinner patient states that she ate pizza that was spicy in addition to a few oranges, peanut butter filled pretzels as well as a large bowl of ice cream. She wears a CPAP at night. She woke up and there wa s a little bit of emesis in her CPAP mask. She reports her stomach felt upset. She took a few Tums for heartburn. She reports when she woke up at 5 she still felt some heartburn and took some more Tums but her symptoms had resolved by when she woke up at 8:00 this morning. Has not reoccurred. She has been compliant with her medications.Patient states this morning she felt tired from not sleeping well and spoke to her daughter who recommended she come to the emergency department for evaluation. 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 Cardiovascular: Other - Present Medications Home Medications: Ambulatory Orders Medication Instructions Recorded Confirmed Acetaminophen 500 mg PO DAILY 04/08/16 01/16/23 Calcium Carbonate 1 tab PO DAILY 04/08/16 01/16/23 Cholecalciferol [Vitamin D3] 1 tab PO DAILY 04/08/16 01/16/23 Fluticasone [Flonase] 50 mcg INH DAILY PM 04/09/16 01/16/23 Alendronate [Fosamax] 70 mg PO ONCE 01/16/23 01/16/23 Apixaban [Eliquis] 2.5 mg PO BID 01/16/23 01/16/23 Atorvastatin [Lipitor] 20 mg PO DAILY 01/16/23 01/16/23 Azelastine HCl 137 mcg NS DAILY 01/16/23 01/16/23 Latanoprost 0.005% Ophth Drops 1 drops RIGHTEYE DAILY 01/16/23 01/16/23 [Xalatan Ophth Drops] Losartan Potassium 25 mg PO DAILY 01/16/23 01/16/23 diltiaZEM CD [Cardizem Cd] 120 mg PO DAILY 01/16/23 01/16/23 metFORMIN [Glucophage] 500 mg PO DAILY 01/16/23 01/16/23 - Allergies Allergies/Adverse Reactions: Allergies Allergy/AdvReac Type Severity Reaction Status Date / Time cefuroxime axetil * Allergy Cramps Verified 04/23/23 12:30 [From Ceftin] levofloxacin [From Levaquin] Allergy Hallucinati Verified 04/23/23 12:30 ons phenazopyridine Allergy Unknown Verified 04/23/23 12:30 [From Pyridium] - Social History Does the pt smoke?: No Smoking Status: Never smoker Does the pt drink ETOH?: No Does the pt have substance abuse?: No - Immunizations Immunizations are current?: Yes - POLST Patient has POLST: No PD ED PE NORMAL - General General: Alert and oriented X 3, No acute distress, Well developed/nourished - HEENT HEENT: Atraumatic - Neck Neck: Supple, no meningeal sign - Cardiac Cardiac: Strong equal pulses, Other (Irregularly irregular) - Respiratory Respiratory: No respiratory distress, Clear bilaterally - Abdomen Abdomen: Soft, Non tender - Derm Derm: Warm and dry - Extremities Extremities: No edema, No calf tenderness / cord - Neuro Neuro: Normal speech Results - Vitals Vitals: Vital Signs - 24 hr 04/23/23 04/23/23 12:30 14:30 Temperature 36.5 C Heart Rate 85 91 Respiratory 16 15 Rate Blood Pressure 150/75 H 144/77 H O2 Saturation 94 98 Oxygen O2 Source Room air - EKG (time done) 1234 EKG releavant findings:: EKG personally interpreted by author of this note. Relevant findings are: Rate 86, atrial fibrillation, no STEMI, no ST depressions Rate: Rate (enter#) (86) Rhythm: Atrial fibrillation Ischemia: No: ST elevation c/w ischemia - Labs Labs: Laboratory Tests 04/23/23 04/23/23 13:02 13:02 WBC 7.0 RBC 3.81 L Hgb 12.3 Hct 38.2 MCV 100.3 H MCH 32.3 H MCHC 32.2 RDW 13.3 Plt Count 251 MPV 8.8 Neut # (Auto) 5.4 Lymph # (Auto) 1.0 L [place] # (Auto) 0.5 Eos # (Auto) 0.1 Baso # (Auto) 0.0 Absolute Nucleated RBC 0.00 Nucleated RBC % 0.0 Sodium 136 Potassium 4.1 Chloride 98 L Carbon Dioxide 34 H Anion Gap 4.0 L BUN 20 Creatinine 0.7 Estimated GFR (MDRD) 80 L Glucose 95 Calcium 9.8 Total Bilirubin 0.6 AST 24 ALT 17 Alkaline Phosphatase 79 Troponin I High Sens 7.5 Total Protein 7.0 Albumin 4.1 Globulin 2.9 Albumin/Globulin Ratio 1.4 Lipase 20 PD Medical Decision Making - ED course Complexity details: reviewed results, re-evaluated patient, d/w patient ED course: Patient is an 87-year-old female presenting for evaluation of heartburn symptoms experienced overnight. They have resolved since she has been awake today and have not reoccurred. EKG demonstrates atrial fibrillation which she has a history of. CBC, chemistry, troponin obtained and reviewed and without significant findings. Chest x-ray is also negative. Feel her symptoms are atypical for ACS and negative troponin given the timeline of her symptoms is also reassuring. Patient counseled to avoid spicy or acidic food today and to not eat too close to sleeping as well as need for close follow-up with her primary care. She is also advised on concerning symptoms to return for. Departure - Departure Disposition: 01 Home, Self Care Clinical Impression: Chest pain Condition: Stable Instructions: ED Chest Pain Atypical Unkn Cause Comments: Your testing today does not show signs of a heart attack. Please continue with your medications as prescribed and have close follow-up with your primary care provider as you may need more testing for your symptoms last night. In the meanwhile I would avoid eating anything too spicy or acidic or too close to your bedtime as this may upset your stomach. Return to the ER with any worsening symptoms. Forms: PCP List Discharge Date/Time: 04/23/23 14:32
[2023-04-23 13:20] LABS: BASOPHILS % (AUTO) 0.6 %; EOSINOPHILS # (AUTO) 0.1 10^3/uL (0.0-0.7); EOSINOPHILS % (AUTO) 0.7 %; HCT - HEMATOCRIT 38.2 % (37.0-47.0); HGB - HEMOGLOBIN 12.3 g/dL (12.0-16.0); LYMPHOCYTES % (AUTO) 14.3 %; MEAN CORPUSCULAR HEMOGLOBIN 32.3 pg (27.0-31.0); MEAN CORPUSCULAR HGB CONC 32.2 g/dL (32.0-36.0); MEAN CORPUSCULAR VOLUME 100.3 fL (81.0-99.0); MEAN PLATELET VOLUME 8.8 fL (7.9-10.8); MONOCYTES # (AUTO) 0.5 10^3/uL (0.0-1.0); MONOCYTES % (AUTO) 7.6 %; NEUTROPHILS # (AUTO) 5.4 10^3/uL (1.5-6.6); NEUTROPHILS % (AUTO) 76.4 %; PLT - PLATELET COUNT 251 10^3/uL (130-450); RED BLOOD COUNT 3.81 10^6/uL (4.20-5.40); RED CELL DISTRIBUTION WIDTH 13.3 % (12.0-15.0)
--- NOTE | 2023-04-23 13:24 | XRAY Report ---
PROCEDURE: Chest 1 View X-Ray INDICATIONS: CP TECHNIQUE: One view of the chest was acquired. COMPARISON: Chest x-ray 03/16/2023 FINDINGS: Surgical changes and devices: None. Lungs and pleura: No pleural effusions or pneumothorax. Lungs are hyperinflated suggestive COPD.. Mediastinum: Mediastinal contours appear normal. Heart size is enlarged. Bones and chest wall: No suspicious bony lesions. Overlying soft tissues appear unremarkable. IMPRESSION: No acute cardiopulmonary process. Stable interval exam. Reviewed by: Ivet Marrero MD on 04/23/2023 1:22 PM PDT Approved by: Ivet Marrero MD on 04/23/2023 1:22 PM PDT Station ID: [id number]
[2023-04-23 13:31] LABS: ALBUMIN 4.1 g/dL (3.2-5.5); ALBUMIN/GLOBULIN RATIO 1.4 (1.0-2.2); BILIRUBIN,TOTAL 0.6 mg/dL (0.2-1.0); CALCIUM 9.8 mg/dL (8.5-10.3); CREATININE 0.7 mg/dL (0.6-1.3); POTASSIUM 4.1 mmol/L (3.5-4.5)
[2023-04-23 13:38] LABS: TROPONIN I HIGH SENSITIVITY 7.5 ng/L (2.3-14.8)
[2023-04-23 14:39] VITALS: BP 144/77; O2SAT 98
== END 2023-04-23 14:32 | disposition home or self-care (01) ==
LOC: ED 12:26
DX: R07.9 Chest pain, unspecified (principal); I48.91 Unspecified atrial fibrillation; Z79.01 Long term (current) use of anticoagulants
CPT/HCPCS: 36415; 80053; 83690; 84484; 85025; 93005; 99283; 99284

== ENCOUNTER 2023-07-01 14:20 | Outpatient (CLI) | payer MEDICARE ==
[2023-07-01 19:52] LABS: BASOPHILS # (AUTO) 0.1 10^3/uL (0.0-0.1); BASOPHILS % (AUTO) 0.7 %; EOSINOPHILS # (AUTO) 0.1 10^3/uL (0.0-0.7); EOSINOPHILS % (AUTO) 0.7 %; HCT - HEMATOCRIT 38.2 % (37.0-47.0); HGB - HEMOGLOBIN 11.8 g/dL (12.0-16.0); LYMPHOCYTES # (AUTO) 1.1 10^3/uL (1.5-3.5); LYMPHOCYTES % (AUTO) 14.9 %; MEAN CORPUSCULAR HEMOGLOBIN 31.9 pg (27.0-31.0); MEAN CORPUSCULAR HGB CONC 30.9 g/dL (32.0-36.0); MEAN CORPUSCULAR VOLUME 103.2 fL (81.0-99.0); MEAN PLATELET VOLUME 9.6 fL (7.9-10.8); MONOCYTES # (AUTO) 0.6 10^3/uL (0.0-1.0); MONOCYTES % (AUTO) 7.9 %; NEUTROPHILS # (AUTO) 5.6 10^3/uL (1.5-6.6); NEUTROPHILS % (AUTO) 75.5 %; PLT - PLATELET COUNT 266 10^3/uL (130-450); RED CELL DISTRIBUTION WIDTH 13.9 % (12.0-15.0); WHITE BLOOD COUNT 7.5 x10^3/uL (4.8-10.8)
[2023-07-01 20:08] LABS: INR 1.3 (0.8-1.2); PT - PROTHROMBIN TIME 13.5 secs (9.9-12.6)
[2023-07-01 20:17] LABS: PARTIAL THROMBOPLASTIN TIME 29.6 secs (24.9-33.3)
[2023-07-01 20:27] LABS: BUN - BLOOD UREA NITROGEN 17 mg/dL (6-20); CALCIUM 9.4 mg/dL (8.5-10.3); CARBON DIOXIDE - CO2 35 mmol/L (21-32); CHLORIDE 96 mmol/L (101-111); CHOL/HDL RATIO 1.6 (<4.4); CHOLESTEROL 126 mg/dL; CREATININE 0.6 mg/dL (0.6-1.3); GFR - MDRD 95 (>89); GLUCOSE 167 mg/dL (74-104); HDL CHOLESTEROL 80 mg/dL; LDL CHOLESTEROL,CALCULATED 24 mg/dL; LDL/HDL RATIO 0.3 (<4.4); POTASSIUM 4.1 mmol/L (3.5-4.5); SODIUM 134 mmol/L (135-145); TRIGLYCERIDES 109 mg/dL (48-352); VLDL CHOLESTEROL 22 mg/dL
[2023-07-01 20:31] LABS: CREATININE,URINE 19.5 mg/dL
[2023-07-01 20:39] LABS: THYROID STIMULATING HORMONE 1.26 uIU/mL (0.34-5.60)
[2023-07-01 21:18] LABS: ESTIMATED AVERAGE GLUCOSE 140 mg/dL (70-100); HEMOGLOBIN A1c% 6.5 % (4.27-6.07)
[2023-07-01 21:28] LABS: MICROALBUMIN,URINE < 0.7 mg/dL
== END 2023-07-01 14:21 | disposition home or self-care (01) ==
LOC: LAB.S 14:20
PROVIDERS: ATTEND Internal Medicine
DX: I48.91 Unspecified atrial fibrillation (principal); E11.9 Type 2 diabetes mellitus without complications; E04.1 Nontoxic single thyroid nodule
CPT/HCPCS: 36415; 80048; 80061; 82043; 82570; 83036; 83721; 84443; 85025; 85610; 85730

== ENCOUNTER 2023-09-29 12:14 | Outpatient (CLI) | payer MEDICARE ==
--- NOTE | 2023-09-30 11:31 | Mammography Report ---
BILATERAL DIGITAL DIAGNOSTIC MAMMOGRAM 3D/2D WITH SPOT COMPRESSION: 09/29/2023 CLINICAL: Left inverted nipple and pain. Due for bilateral exam. Comparison is made to exams dated: 08/26/2021 mammogram, 09/17/2020 mammogram, 07/25/2019 mammogram, and 08/02/2018 mammogram - [facility]. There are scattered areas of fibroglandular density in both breasts (category b / 25%-50% glandular t issue). Nipple inversion appears to be stable mammographically on multiple prior exams. No significant masses, calcifications, or other findings are seen in either breast. IMPRESSION: INCOMPLETE: NEEDS ADDITIONAL IMAGING EVALUATION There is no abnormality seen in the left breast to correspond with the nipple abnormality and pain in the sub-areolar depth. Targeted ultrasound is recommend for further evaluation and was scheduled to be performed immediately following this exam. However, patient was not able to stay for the ultrasou nd on the same day. She states she will return the following day to complete the targeted left breast ultrasound. This exam was interpreted at Station ID: [id number]. NOTE: For mammograms, a report in lay terms will be sent to the patient. Approximately 15% of breast malignancies will not be visualized mammographically. In the management of a palpable breast mass, a negative mammogram must not discourage biopsy of a clinically suspicious lesion. Electronically Signed By: Edgardo busch/everett:09/29/2023 13:22:34 ACR BI-RADS Category 0: Incomplete 3340F PARENCHYMAL PATTERN: (A) - The breast(s) demonstrate(s) scattered fibroglandular densities. BI-RADS CATEGORY: (0) - 0 Ultrasound [id number] Immediate follow-up LATERALITY: (L)
== END 2023-09-29 12:15 | disposition home or self-care (01) ==
LOC: DI 12:14
PROVIDERS: ATTEND Internal Medicine
DX: N64.4 Mastodynia (principal); R92.323 Mammographic fibroglandular density, bilateral breasts

== ENCOUNTER 2023-09-30 10:05 | Outpatient (CLI) | payer MEDICARE ==
--- NOTE | 2023-10-01 10:31 | Ultrasound Report ---
LIMITED ULTRASOUND OF LEFT BREAST: 09/30/2023 CLINICAL: Occasional left breast pain. Comparison is made to exams dated: 09/29/2023 mammogram, 08/26/2021 mammogram, 09/17/2020 mammogram, and 07/25/2019 mammogram - [facility]. Color flow ultrasound of the left breast retroareolar was performed. Porter scale images of the real- time examination were reviewed. No significant abnormalities were seen sonographically in the left breast. IMPRESSION: NEGATIVE There is no sonographic evidence of malignancy. There is no abnormality seen in the left breast to correspond with the nipple abnormality and pain in the sub-areolar depth, however, clinical followup is recommended. A 1 year screening mammogram is recommended. This exam was interpreted at Station ID: [id number]. Electronically Signed By: Edgardo busch/everett:09/30/2023 13:35:03 letter sent: No_Letter Ultrasound BI-RADS: 1 Negative BI-RADS CATEGORY: (1) - 1 Mammogram [id number] 1 year screening LATERALITY: (B)
== END 2023-09-30 10:06 | disposition home or self-care (01) ==
LOC: DI 10:05
PROVIDERS: ATTEND Internal Medicine
DX: N64.4 Mastodynia (principal); M81.0 Age-related osteoporosis without current pathological fracture

== ENCOUNTER 2023-09-30 10:08 | Outpatient (CLI) | payer MEDICARE ==
--- NOTE | 2023-09-30 16:24 | DEXA Report ---
PROCEDURE: Dexa Spine and/or Hip INDICATIONS: OSTEOPOROSIS TECHNIQUE: Dual energy x-ray absorptiometry (DXA) was performed on a path intelligence System. Regions measur ed are the AP Spine, femoral neck, and if needed forearm. COMPARISON: 08/05/2017 FINDINGS: Lumbar Spine: Bone Mineral Density: 1.087 g/cm/cm,T score: -0.8. Since the most recent prior study, there has been a statistically significant increase in bone mineral density by 9.4 percent. Left Femoral Neck: Bone Mineral Density: 0.811 g/cm/cm, T score: -1.6. Left Hip: Bone Mineral Density: 0.684 g/cm/cm,T score: -2.6. Since the most recent prior study, there has been a statistically significant increase in bone mineral density by 3.3 percent. Left Forearm: Bone Mineral Density: 0.512 g/cm/cm, T score: -4.2. (T score greater or equal to -1.0: NORMAL) (T score from -1.1 to -2.4: OSTEOPENIA) (T score less than or equal to -2.5 to: OSTEOPOROSIS) Impression: By WHO criteria, this patient has osteoporosis. Interval statistical decrease in bone mineral density of the lumbar spine. Interval statistical incre ase in bone mineral density of the hip. Patients with diagnosis of osteoporosis or osteopenia should have regular bone mineral density assess ment. For those eligible for Medicare, routine testing is allowed once every 2 years. Testing frequ ency can be increased for patients who have rapidly progressing disease or for those who are receivin g medical therapy to restore bone mass. Reviewed by: Braydon Callaway MD on 09/30/2023 4:23 PM PST Approved by: Braydon Callaway MD on 09/30/2023 4:23 PM PST Station ID: [id number]
== END 2023-09-30 10:09 | disposition home or self-care (01) ==
LOC: DI 10:08
PROVIDERS: ATTEND Internal Medicine
DX: M81.0 Age-related osteoporosis without current pathological fracture (principal)

== ENCOUNTER 2023-10-16 10:29 | Outpatient (CLI) | payer MEDICARE | END 2023-10-16 23:59 | disposition critical access hospital (66) | LOC: EMS 10:29 | DX: I83.892 Varicose veins of left lower extremity with other complications (principal); R58 Hemorrhage, not elsewhere classified; Z79.01 Long term (current) use of anticoagulants; I48.91 Unspecified atrial fibrillation | CPT/HCPCS: A0425; A0429 ==

== ENCOUNTER 2023-10-16 11:07 | Emergency (ER) | payer MEDICARE ==
[2023-10-16 11:25] VITALS: O2SAT 96
--- NOTE | 2023-10-16 11:39 | ED Physician Documentation ---
History of Present Illness - Stated complaint Stated Complaint: BLEEDING - Chief complaint Chief Complaint: General - Additonal information Additional information: 88-year-old female with history of A-fib currently on Eliquis presents emergency department for bleeding of one of her varicose veins. Patient was brought in via EMS. Patient says that she was taking a shower she has a really rough washcloth was exfoliating her leg scrubbed too hard on her right lower leg and said that she noticed one of her varicose veins is bleeding. She says she attempted to holler out to her to help with the bleeding but he did not have his hearing aids and and she then called 911. And when advised her to put direct pressure on it and elevate it and she noticed that the bleeding had stopped. By that time 911 had already been on their way when they evaluated the patient she opted to come to the emergency department for further evaluation. Bleeding has now been fully controlled there is no bleeding or oozing on gauze or at the site where she states the bleeding was coming from. She denies any dizziness no nausea vomiting. 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 Cardiovascular: Other - Present Medications Home Medications: Ambulatory Orders Medication Instructions Recorded Confirmed Acetaminophen 500 mg PO DAILY 04/08/16 10/16/23 Calcium Carbonate 1 tab PO DAILY 04/08/16 10/16/23 Cholecalciferol [Vitamin D3] 1 tab PO DAILY 04/08/16 10/16/23 Fluticasone [Flonase] 50 mcg INH DAILY PM 04/09/16 10/16/23 Alendronate [Fosamax] 70 mg PO ONCE 01/16/23 10/16/23 Apixaban [Eliquis] 2.5 mg PO BID 01/16/23 10/16/23 Atorvastatin [Lipitor] 20 mg PO DAILY 01/16/23 10/16/23 Latanoprost 0.005% Ophth Drops 1 drops RIGHTEYE DAILY 01/16/23 10/16/23 [Xalatan Ophth Drops] Losartan Potassium 25 mg PO DAILY 01/16/23 10/16/23 diltiaZEM CD [Cardizem Cd] 120 mg PO DAILY 01/16/23 10/16/23 metFORMIN [Glucophage] 500 mg PO DAILY 01/16/23 10/16/23 - Allergies Allergies/Adverse Reactions: Allergies Allergy/AdvReac Type Severity Reaction Status Date / Time cefuroxime axetil * Allergy Cramps Verified 10/16/23 11:17 [From Ceftin] levofloxacin [From Levaquin] Allergy Hallucinati Verified 10/16/23 11:17 ons phenazopyridine Allergy Unknown Verified 10/16/23 11:17 [From Pyridium] - Social History Does the pt smoke?: No Smoking Status: Never smoker Does the pt drink ETOH?: No Does the pt have substance abuse?: No - Immunizations Immunizations are current?: Yes - POLST Patient has POLST: No PD ED PE NORMAL - Vitals Vital signs reviewed: Yes - General General: Alert and oriented X 3, No acute distress, Well developed/nourished - Derm Derm: Normal color, Warm and dry, Other (1-2mm scab to right medial calf, no bleeding or oozing) - Extremities Extremities: No edema - Neuro Neuro: Alert and oriented X 3 - Psych Psych: Normal mood Results - Vitals Vitals: Vital Signs - 24 hr 10/16/23 11:15 Temperature 36.5 C Heart Rate 75 Respiratory 18 Rate Blood Pressure 141/71 H O2 Saturation 96 Oxygen O2 Source Room air PD Medical Decision Making - ED course ED course: 88-year-old female presents emergency department today for bleeding of a varicose vein. By the time she had arrived to the emergency department varicose vein bleeding had completely resolved. There is no oozing or bleeding on the gauze that the shipping point inspector had placed over her leg we watch the wound for a bit to see if it would continue to bleed and there is no residual bleeding. Patient was told to follow-up with primary care provider she expressed interest in discontinuing her Eliquis. She is told to continue Eliquis until she is able to make a shared decision with her primary care provider to discuss pros and cons of discontinuing this medication. Bacitracin applied over the wound because the varicose vein bleeding with a Band-Aid. She was told to follow-up with primary care provider. Departure - Departure Disposition: 01 Home, Self Care Clinical Impression: Bleeding from varicose vein Instructions: ED Veins Varicose Comments: Thank you for trusting us with your care. Your bleeding is now well-controlled and fully resolved. In the future if this happens again meaning apply direct pressure to the bleeding stops. We are placing a small amount of bacitracin and a Band-Aid over the site that was bleeding earlier you can remove this tomorrow or earlier if needed. Please help with your primary care provider about your concerns continue on Eliquis and they can help you with making an informed de cision with continuing or discontinuing the Eloquis Please come back to the emergency department for starting to develop any dizziness, nausea vomiting, or any other concerning symptoms. Forms: PCP List
[2023-10-16] MEDS: BACITRACIN ZINC OINT 1 PACKET TOP STA (11:55)
[2023-10-16 12:13] VITALS: BP 137/72
== END 2023-10-16 12:04 | disposition home or self-care (01) ==
LOC: EDUNIT# → EDBD → ED 11:07
DX: I48.91 Unspecified atrial fibrillation (principal); Z79.01 Long term (current) use of anticoagulants
CPT/HCPCS: 99283; A9270

== ENCOUNTER 2023-11-05 13:41 | Outpatient (CLI) | payer MEDICARE ==
--- NOTE | 2023-11-05 14:16 | Sleep Patient Instructions ---
Sleep Center Visit Summary - Patient Visit Information Reason for Visit: Annual follow-up - Patient Instructions Additional Instructions: You will continue with CPAP therapy with pressure set at 6-12 cmH2O. A supply prescription will be updated with your DME. Please follow up with the sleep care office in 1 year. - Clinic Information Contact: [facility] [address] [place] [id number] [email or web address] T: [phone]
--- NOTE | 2023-11-05 14:23 | SLEEP CARE CONSULTATION ---
Information from patient questionnaire entered by Daisy Bronson. I have reviewed and concur with the information entered by Daisy Bronson. This document represents the service I personally performed and the decisions made by me, Reena Gifford ARNP. History of Present Illness Service Date and Time: 11/05/2023 1341 Previous diagnosis: Mild, Obstructive Sleep Apnea-Hypopnea Syndrome AHI: 10.1 Reason for follow up: annual (LAST SEEN 04/2022) Accompanied by: Spouse (Rob) Equipment type: CPAP (TRI DREAM STATION 2 ADVANCED SET UP 04/21/2011) Equipment obtained from: [employer] ([employer]) Mask style: Full face Mask brand: Resmed (AirFit F20) Backup mask available: Yes Last cushion change: month Prior sleep studies: Yes Year and Where: Located within [facility] HPI additional information: SARAI COYNE was diagnosed to have mild, AHI 10.1, obstructive sleep apnea- hypopnea syndrome and returned today for CPAP therapy annual follow-up. Sleep Study - Results Prior sleep studies: Yes Year and Where: [facility] CPAP Compliance Data - Data Reviewed with Patient Average duration of nightly device use: 5 HRS 57 MINS 38 SECS Compliance rate %: 76.2 (11/01/22-10/31/23; 288/365 days used) Current pressure setting (cmH2O): 6-12 Average residual AHI: 2.6 Central apnea: 0.1 Obstructive apnea: 0.3 Average large leak: 38 mins 13 secs Subjective Missed days of use due to: reports: other (not sure why she missed it) Patient concerns: reports: dry mouth, nose, throat (dry mouth, may be oral venting). denies: aerophagia, mask discomfort, air blowing in eyes, mask leak noise, condensation in mask/hose, nasal congestion, epistaxis Observed to snore while using device: Yes (once in a while) Current pressure setting perceived as: comfortable On therapy, patient: reports: sleeping better, awakening more refreshed, being more awake and alert during the day, more rested overall. denies: drowsiness while driving Initial [place] Sleepiness Scale score: 10 (in 2010) Current [place] Sleepiness Scale score: 7 (11/05/23) Allergies and Home Medications Known drug allergies: Yes (as listed) Drug allergies reviewed: Yes Home medication list reviewed: Yes (Eliquis) Allergy and home medication list: Allergies cefuroxime axetil * [From Ceftin] Allergy (Verified 11/03/23 14:27) Cramps levofloxacin [From Levaquin] Allergy (Verified 11/03/23 14:27) Hallucinations phenazopyridine [From Pyridium] Allergy (Verified 11/03/23 14:27) Unknown Home Medications Medication Instructions Recorded Confirmed Last Taken Type Calcium Carbonate 1 tab PO DAILY 04/08/16 11/05/23 04/08/16 History Alendronate [Fosamax] 70 mg PO ONCE 01/16/23 11/05/23 Unknown History Atorvastatin [Lipitor] 20 mg PO DAILY 01/16/23 11/05/23 Unknown History Latanoprost 0.005% Ophth Drops 1 drops RIGHTEYE DAILY 01/16/23 11/05/23 Unknown History [Xalatan Ophth Drops] Losartan Potassium 25 mg PO DAILY 01/16/23 11/05/23 Unknown History diltiaZEM CD [Cardizem Cd] 120 mg PO DAILY 01/16/23 11/05/23 Unknown History metFORMIN [Glucophage] 500 mg PO DAILY 01/16/23 11/05/23 Unknown History Apixaban [Eliquis] See Rx Instructions .ROUTE .COMPLEX 11/05/23 11/05/23 Unknown History Review of Systems Review of systems same as previous: Yes (NO CHANGE) Physical Exam Vital signs obtained and entered by: DAISY Cohen MA Blood Pressure: 135/66 (LEFT ARM) Cuff size: regular Heart Rate: 88 O2 Saturation: 92 Height: 5 ft 4 in Weight: 119 lb Body Mass Index: 20.4 BMI Classification: Normal Impression and Plan 1. Obstructive Sleep Apnea-Hypopnea Syndrome, mild, with good treatment complia nce and good apnea control. On CPAP therapy, the patient has better sleep quality and is more rested overall. She has significant improvement of her sleep apnea and is satisfied with current pressure settings. She occasionally will get dry mouth and thinks her mouth is coming open in her mask. Patient's apnea severity and rationale for treatment to reduce apnea, improve sleep quality and reduce cardiovascular and cerebrovascular events was reviewed. I also reviewed the benefit of consistent device use of CPAP for hypertension, arrhythmia. * Continue auto CPAP pressure at 6-12 cmH2O * Update supply prescription * Notify me if snoring with mask or feeling that the pressure is too much or too little * Call this office if any problems using CPAP * Return for follow up in 12 months, or sooner if concerns arise Counseling Topics: Spare mask Prescriptions: Device supplies Follow up with Sleep Care in: 1 year Visit Type: In Office Time Spent with Patient (minutes): 23 Provider Statement: I spent 100% of the Face to Face Visit with the patient with greater than 50% spent counseling the patient and coordination of care.
[2023-11-05 14:26] VITALS: BP 135/66; O2SAT 92
== END 2023-11-05 13:42 | disposition home or self-care (01) ==
LOC: SC 13:41
PROVIDERS: ATTEND Nurse Practitioner Family
DX: G47.33 Obstructive sleep apnea (adult) (pediatric) (principal)
CPT/HCPCS: 99213; G0463; 99212

== ENCOUNTER 2023-11-15 16:38 | Outpatient (CLI) | payer MEDICARE | END 2023-11-15 23:59 | disposition short-term general hospital (02) | LOC: EMS 16:38 | DX: R20.2 Paresthesia of skin (principal); R42 Dizziness and giddiness; Z86.73 Personal history of transient ischemic attack (TIA), and cerebral infarction without residual deficits; I48.91 Unspecified atrial fibrillation; Z79.01 Long term (current) use of anticoagulants | CPT/HCPCS: A0425; A0429 ==

== ENCOUNTER 2023-12-22 14:44 | Outpatient (CLI) | payer MEDICARE ==
[2023-12-22 21:09] LABS: ESTIMATED AVERAGE GLUCOSE 140 mg/dL (70-100); HEMOGLOBIN A1c% 6.5 % (4.27-6.07)
== END 2023-12-22 14:45 | disposition home or self-care (01) ==
LOC: LAB.S 14:44
PROVIDERS: ATTEND Internal Medicine
DX: E11.9 Type 2 diabetes mellitus without complications (principal)
CPT/HCPCS: 36415; 83036

== ENCOUNTER 2024-01-27 06:09 | Outpatient (CLI) | payer MEDICARE | END 2024-01-27 23:41 | disposition short-term general hospital (02) | LOC: EMS 06:09 | DX: R07.89 Other chest pain (principal); I10 Essential (primary) hypertension; I48.91 Unspecified atrial fibrillation; Z79.01 Long term (current) use of anticoagulants; Z95.0 Presence of cardiac pacemaker | CPT/HCPCS: A0425; A0429 ==

== ENCOUNTER 2024-03-10 22:25 | Outpatient (CLI) | payer MEDICARE | END 2024-03-10 23:59 | disposition critical access hospital (66) | LOC: EMS 22:25 | DX: T50.991A Poisoning by other drugs, medicaments and biological substances, accidental (unintentional), initial encounter (principal) | CPT/HCPCS: A0425; A0429 ==

== ENCOUNTER 2024-03-10 23:01 | Emergency (ER) | payer MEDICARE ==
--- NOTE | 2024-03-10 23:14 | ED Physician Documentation ---
History of Present Illness - Stated complaint Stated Complaint: ACCIDENTAL OD - History obtained from History obtained from: Patient, EMS - Additonal information Additional information: 88yF who lives at home independently with her presents after mistakenly taking his nighttime meds instead of her own. She is supposed to take eliquis 5, diltiazem 120, and metformin 500 but instead took amlodipine 10, metformin 1000, and metoprolol 25. Denies any complaints at this time, stating she simply made a mistake. 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 Cardiovascular: Other - Present Medications Home Medications: Ambulatory Orders Medication Instructions Recorded Confirmed Calcium Carbonate 1 tab PO DAILY 04/08/16 11/05/23 Alendronate [Fosamax] 70 mg PO ONCE 01/16/23 11/05/23 Atorvastatin [Lipitor] 20 mg PO DAILY 01/16/23 11/05/23 Latanoprost 0.005% Ophth Drops 1 drops RIGHTEYE DAILY 01/16/23 11/05/23 [Xalatan Ophth Drops] Losartan Potassium 25 mg PO DAILY 01/16/23 11/05/23 diltiaZEM CD [Cardizem Cd] 120 mg PO DAILY 01/16/23 11/05/23 metFORMIN [Glucophage] 500 mg PO DAILY 01/16/23 11/05/23 Acetaminophen [Acetaminophen Extra See Rx Instructions .ROUTE .COMPLEX 11/05/23 11/05/23 Strength] Apixaban [Eliquis] See Rx Instructions .ROUTE .COMPLEX 11/05/23 11/05/23 Azelastine HCl See Rx Instructions .ROUTE .COMPLEX 11/05/23 11/05/23 Carboxymethylcellulose 1% Opht See Rx Instructions .ROUTE .COMPLEX 11/05/23 11/05/23 [Refresh 1% Ophth Drops] Cbd See Rx Instructions .ROUTE .COMPLEX 11/05/23 11/05/23 Estradiol [Vagifem] See Rx Instructions .ROUTE .COMPLEX 11/05/23 11/05/23 Fluticasone [Flonase] See Rx Instructions .ROUTE .COMPLEX 11/05/23 11/05/23 Furosemide [Lasix] See Rx Instructions .ROUTE .COMPLEX 11/05/23 11/05/23 Latanoprost 0.005% Ophth Drops See Rx Instructions .ROUTE .COMPLEX 11/05/23 11/05/23 [Xalatan Ophth Drops] Loratadine [All Day Allergy Relief] See Rx Instructions .ROUTE .COMPLEX 11/05/23 11/05/23 Losartan [Cozaar] See Rx Instructions .ROUTE .COMPLEX 11/05/23 11/05/23 Mv-Min/FA/Vit K/Lutein/Zeaxant See Rx Instructions .ROUTE .COMPLEX 11/05/23 11/05/23 [Preservision Areds 2 Plus Mv] Prevagen See Rx Instructions .ROUTE .COMPLEX 11/05/23 Rosacea See Rx Instructions .ROUTE .COMPLEX 11/05/23 Sodium Chloride [Simply Saline See Rx Instructions .ROUTE .COMPLEX 11/05/23 11/05/23 Wound Wash] dilTIAZem HCL [Diltiazem 12Hr ER] See Rx Instructions .ROUTE .COMPLEX 11/05/23 11/05/23 metFORMIN [Glucophage] See Rx Instructions .ROUTE .COMPLEX 11/05/23 11/05/23 - Allergies Allergies/Adverse Reactions: Allergies Allergy/AdvReac Type Severity Reaction Status Date / Time cefuroxime axetil * Allergy Cramps Verified 03/10/24 23:15 [From Ceftin] levofloxacin [From Levaquin] Allergy Hallucinati Verified 03/10/24 23:15 ons phenazopyridine Allergy Unknown Verified 03/10/24 23:15 [From Pyridium] - Social History Does the pt smoke?: No Smoking Status: Never smoker Does the pt drink ETOH?: No Does the pt have substance abuse?: No - Immunizations Immunizations are current?: Yes - POLST Patient has POLST: No PD ED PE NORMAL - Vitals Vital signs reviewed: Yes - General General: Alert and oriented X 3, No acute distress, Well developed/nourished - HEENT HEENT: Atraumatic, PERRL, EOMI - Neck Neck: Supple, no meningeal sign - Cardiac Cardiac: RRR - Respiratory Respiratory: No respiratory distress, Clear bilaterally Results - Vitals Vitals: Vital Signs - 24 hr 03/10/24 03/10/24 03/11/24 23:10 23:55 00:00 Temperature 36.7 C Heart Rate 69 75 82 Respiratory 16 17 20 Rate Blood Pressure 173/82 H 155/91 H 147/71 H O2 Saturation 94 92 94 03/11/24 03/11/24 03/11/24 00:30 01:00 01:30 Temperature Heart Rate 75 75 75 Respiratory 26 H 26 H 16 Rate Blood Pressure 130/74 134/63 H 125/62 O2 Saturation 92 93 94 03/11/24 03/11/24 03/11/24 02:00 03:00 03:30 Temperature Heart Rate 75 75 75 Respiratory 16 16 16 Rate Blood Pressure 136/63 H 140/65 H 140/70 H O2 Saturation 92 92 92 Oxygen O2 Source Room air - EKG (time done) 2304 EKG releavant findings:: EKG personally interpreted by author of this note. Relevant findings are: Rate: Rate (enter#) (87) Rhythm: Paced, Other (afib / flutter and ventricular paced complexes) - Labs Labs: Laboratory Tests 03/10/24 03/10/24 23:20 23:20 WBC 7.7 RBC 3.39 L Hgb 10.7 L Hct 33.3 L MCV 98.2 MCH 31.6 H MCHC 32.1 RDW 13.9 Plt Count 260 MPV 8.5 Neut # (Auto) 5.7 Lymph # (Auto) 1.1 L [place] # (Auto) 0.8 Eos # (Auto) 0.1 Baso # (Auto) 0.0 Absolute Nucleated RBC 0.00 Nucleated RBC % 0.0 Sodium 131 L Potassium 4.3 Chloride 96 L Carbon Dioxide 30 Anion Gap 5.0 L BUN 21 H Creatinine 0.7 Estimated GFR (MDRD) 79 L Glucose 120 H Calcium 9.4 Total Bilirubin 0.5 AST 24 ALT 19 Alkaline Phosphatase 66 Total Protein 7.0 Albumin 4.0 Globulin 3.0 Albumin/Globulin Ratio 1.3 Lipase 20 PD Medical Decision Making - ED course ED course: Poison control center recommended 6 hour observation prior to discharge. patient was observed overnight without adverse effects from mistaken medication error. Counseling provided. recommend follow up with pcp. Departure - Departure Disposition: 01 Home, Self Care Clinical Impression: Medication administered in error Condition: Stable Comments: You were seen in the ED after mistakenly taking your spouse's medications rather than your own. You need to follow up with a primary care provider and consider getting additional help in the home to keep your meds straight. Return to the ED for any other concerns.
[2024-03-10 23:25] LABS: BASOPHILS % (AUTO) 0.5 %; EOSINOPHILS # (AUTO) 0.1 10^3/uL (0.0-0.7); EOSINOPHILS % (AUTO) 0.8 %; HCT - HEMATOCRIT 33.3 % (37.0-47.0); HGB - HEMOGLOBIN 10.7 g/dL (12.0-16.0); LYMPHOCYTES # (AUTO) 1.1 10^3/uL (1.5-3.5); LYMPHOCYTES % (AUTO) 14.3 %; MEAN CORPUSCULAR HEMOGLOBIN 31.6 pg (27.0-31.0); MEAN CORPUSCULAR HGB CONC 32.1 g/dL (32.0-36.0); MEAN CORPUSCULAR VOLUME 98.2 fL (81.0-99.0); MEAN PLATELET VOLUME 8.5 fL (7.9-10.8); MONOCYTES # (AUTO) 0.8 10^3/uL (0.0-1.0); NEUTROPHILS # (AUTO) 5.7 10^3/uL (1.5-6.6); NEUTROPHILS % (AUTO) 74.1 %; PLT - PLATELET COUNT 260 10^3/uL (130-450); RED BLOOD COUNT 3.39 10^6/uL (4.20-5.40); RED CELL DISTRIBUTION WIDTH 13.9 % (12.0-15.0); WHITE BLOOD COUNT 7.7 x10^3/uL (4.8-10.8)
[2024-03-10] MEDS: APIXABAN 5 MG TABLET PO STA (23:35)
[2024-03-10 23:45] LABS: ALBUMIN/GLOBULIN RATIO 1.3 (1.0-2.2); BILIRUBIN,TOTAL 0.5 mg/dL (0.2-1.0); CALCIUM 9.4 mg/dL (8.5-10.3); CREATININE 0.7 mg/dL (0.6-1.3); POTASSIUM 4.3 mmol/L (3.5-4.5)
[2024-03-11 06:14] VITALS: BP 147/77; O2SAT 94
== END 2024-03-11 06:10 | disposition home or self-care (01) ==
LOC: EDUNIT# → ED 23:01
DX: T46.1X1A Poisoning by calcium-channel blockers, accidental (unintentional), initial encounter (principal); T38.3X1A Poisoning by insulin and oral hypoglycemic [antidiabetic] drugs, accidental (unintentional), initial encounter; T44.7X1A Poisoning by beta-adrenoreceptor antagonists, accidental (unintentional), initial encounter; Y92.009 Unspecified place in unspecified non-institutional (private) residence as the place of occurrence of the external cause; I48.91 Unspecified atrial fibrillation; Z79.01 Long term (current) use of anticoagulants; Z79.899 Other long term (current) drug therapy
CPT/HCPCS: 36415; 80053; 83690; 85025; 93005; 99283; 99284; A9270

== ENCOUNTER 2024-04-05 23:53 | Outpatient (CLI) | payer MEDICARE | END 2024-04-05 23:54 | disposition critical access hospital (66) | LOC: EMS 23:53 | DX: R06.02 Shortness of breath (principal); R60.0 Localized edema; Z95.0 Presence of cardiac pacemaker | CPT/HCPCS: A0425; A0427 ==

== ENCOUNTER 2024-04-06 00:32 | Inpatient (IN) | payer MEDICARE ==
[2024-04-06 00:52] LABS: BASOPHILS % (AUTO) 0.4 %; EOSINOPHILS % (AUTO) 0.3 %; HCT - HEMATOCRIT 31.4 % (37.0-47.0); HGB - HEMOGLOBIN 10.1 g/dL (12.0-16.0); LYMPHOCYTES # (AUTO) 1.2 10^3/uL (1.5-3.5); LYMPHOCYTES % (AUTO) 10.9 %; MEAN CORPUSCULAR HEMOGLOBIN 31.1 pg (27.0-31.0); MEAN CORPUSCULAR HGB CONC 32.2 g/dL (32.0-36.0); MEAN CORPUSCULAR VOLUME 96.6 fL (81.0-99.0); MEAN PLATELET VOLUME 8.6 fL (7.9-10.8); MONOCYTES # (AUTO) 0.9 10^3/uL (0.0-1.0); MONOCYTES % (AUTO) 8.2 %; NEUTROPHILS # (AUTO) 8.8 10^3/uL (1.5-6.6); NEUTROPHILS % (AUTO) 79.8 %; PLT - PLATELET COUNT 219 10^3/uL (130-450); RED BLOOD COUNT 3.25 10^6/uL (4.20-5.40); RED CELL DISTRIBUTION WIDTH 13.8 % (12.0-15.0)
[2024-04-06] MEDS: FUROSEMIDE 40 MG/4 ML VIAL IVP STA (01:00)
[2024-04-06 01:07] LABS: ALBUMIN/GLOBULIN RATIO 1.4 (1.0-2.2); BILIRUBIN,TOTAL 0.6 mg/dL (0.2-1.0); CALCIUM 9.2 mg/dL (8.5-10.3); CREATININE 0.6 mg/dL (0.6-1.3); POTASSIUM 4.4 mmol/L (3.5-4.5); TOTAL PROTEIN 6.8 g/dL (6.4-8.9)
--- NOTE | 2024-04-06 01:30 | XRAY Report ---
PROCEDURE: Chest 1V INDICATIONS: dyspnea TECHNIQUE: One view of the chest was acquired. COMPARISON: 04/23/2023 FINDINGS: Surgical changes and devices: Left chest wall generator with cardiac leads. Lungs and pleura: Blunting of the costophrenic angles. Peribronchial cuffing and interstitial opacit ies. Mediastinum: Mediastinal contours appear normal. Heart size is normal. Bones and chest wall: No suspicious bony lesions. Overlying soft tissues appear unremarkable. IMPRESSION: Suspected mild to moderate pulmonary edema and moderate pleural effusions. Reviewed by: Rush Gleason MD on 04/06/2024 1:29 AM PDT Approved by: Rush Gleason MD on 04/06/2024 1:29 AM PDT Station ID: [id number]
[2024-04-06] MEDS ORDERED: SODIUM CHLORIDE FLUSH 0.9% 10 ML SYRINGE IVP PRN (02:39)
--- NOTE | 2024-04-06 03:00 | ED Physician Documentation ---
PD HPI DYSPNEA - Stated complaint Stated Complaint: SOA/BLE EDEMA - Chief complaint Chief Complaint: Cardiac - History obtained from History obtained from: Patient, EMS - Additional information Additional information: The patient comes to the emergency department via EMS for chief complaint of shortness of breath progressively over the last several days. She states that about 5 days ago, her garnetter discontinued her Lasix that she had been taking at 20 mg a day, and started her on a new combination med with valsartan and hydrochlorothiazide. She has a pacemaker that was placed in December and her garnetter also decreased the rate from 75-60. The patient does not know why she got the pacemaker placed in the first place. She states that since being taken off the Lasix, she has begun to swell up and has gained 7 pounds in the last several days. She states that she feels short of breath especially when she walks around and has to rest frequently, which is not usual for her. He states she just feels generally fatigued. No other signs of illness. No cough or fevers. No diarrhea. She felt a little nauseated but has not vomited. No other complaints at this time. 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 Cardiovascular: Other - Present Medications Home Medications: Ambulatory Orders Medication Instructions Recorded Confirmed Calcium Carbonate 1 tab PO DAILY 04/08/16 11/05/23 Alendronate [Fosamax] 70 mg PO ONCE 01/16/23 11/05/23 Atorvastatin [Lipitor] 20 mg PO DAILY 01/16/23 11/05/23 Latanoprost 0.005% Ophth Drops 1 drops RIGHTEYE DAILY 01/16/23 11/05/23 [Xalatan Ophth Drops] Losartan Potassium 25 mg PO DAILY 01/16/23 11/05/23 diltiaZEM CD [Cardizem Cd] 120 mg PO DAILY 01/16/23 11/05/23 metFORMIN [Glucophage] 500 mg PO DAILY 01/16/23 11/05/23 Acetaminophen [Acetaminophen Extra See Rx Instructions .ROUTE .COMPLEX 11/05/23 11/05/23 Strength] Apixaban [Eliquis] See Rx Instructions .ROUTE .COMPLEX 11/05/23 11/05/23 Azelastine HCl See Rx Instructions .ROUTE .COMPLEX 11/05/23 11/05/23 Carboxymethylcellulose 1% Opht See Rx Instructions .ROUTE .COMPLEX 11/05/2310/22 [Refresh 1% Ophth Drops] Cbd See Rx Instructions .ROUTE .COMPLEX 11/05/23 11/05/23 Estradiol [Vagifem] See Rx Instructions .ROUTE .COMPLEX 11/05/23 11/05/23 Fluticasone [Flonase] See Rx Instructions .ROUTE .COMPLEX 11/05/23 11/05/23 Furosemide [Lasix] See Rx Instructions .ROUTE .COMPLEX 11/05/23 11/05/23 Latanoprost 0.005% Ophth Drops See Rx Instructions .ROUTE .COMPLEX 11/05/23 11/05/23 [Xalatan Ophth Drops] Loratadine [All Day Allergy Relief] See Rx Instructions .ROUTE .COMPLEX 11/05/23 11/05/23 Losartan [Cozaar] See Rx Instructions .ROUTE .COMPLEX 11/05/23 11/05/23 Mv-Min/FA/Vit K/Lutein/Zeaxant See Rx Instructions .ROUTE .COMPLEX 11/05/23 11/05/23 [Preservision Areds 2 Plus Mv] Prevagen See Rx Instructions .ROUTE .COMPLEX 11/05/23 Rosacea See Rx Instructions .ROUTE .COMPLEX 11/05/23 Sodium Chloride [Simply Saline See Rx Instructions .ROUTE .COMPLEX 11/05/23 11/05/23 Wound Wash] dilTIAZem HCL [Diltiazem 12Hr ER] See Rx Instructions .ROUTE .COMPLEX 11/05/23 11/05/23 metFORMIN [Glucophage] See Rx Instructions .ROUTE .COMPLEX 11/05/23 11/05/23 - Allergies Allergies/Adverse Reactions: Allergies Allergy/AdvReac Type Severity Reaction Status Date / Time cefuroxime axetil * Allergy Cramps Verified 03/10/24 23:15 [From Ceftin] levofloxacin [From Levaquin] Allergy Hallucinati Verified 03/10/24 23:15 ons phenazopyridine Allergy Unknown Verified 03/10/24 23:15 [From Pyridium] - Social History Does the pt smoke?: No Smoking Status: Never smoker Does the pt drink ETOH?: No Does the pt have substance abuse?: No - Immunizations Immunizations are current?: Yes - POLST Patient has POLST: No PD ED PE NORMAL - Vitals Vital signs reviewed: Yes - General General: Alert and oriented X 3, No acute distress, Well developed/nourished - HEENT HEENT: Atraumatic, EOMI, Moist mucous membranes - Neck Neck: Supple, no meningeal sign - Cardiac Cardiac: No murmur, Strong equal pulses, Other (Regularly irregular heart rhythm with normal rate.) - Respiratory Respiratory: No respiratory distress, Other (Mild rhonchi and rales. Good air movement throughout bilateral lung vargas.) - Abdomen Abdomen: Soft, Non tender, Non distended - Derm Derm: Normal color, Warm and dry, No rash - Extremities Extremities: No deformity, Other (2+ pitting edema extending from feet up to knees. Symmetrical.) - Neuro Neuro: Other (Alert, grossly intact.) - Psych Psych: Normal mood, Normal affect Results - Vitals Vitals: Vital Signs - 24 hr 04/06/24 04/06/24 00:35 00:46 Temperature 36.9 C 36.9 C Heart Rate 78 78 Respiratory 24 20 Rate Blood Pressure 174/82 H 174/82 H O2 Saturation 92 92 Oxygen O2 Source Room air - EKG (time done) 0041 EKG releavant findings:: EKG personally interpreted by author of this note. Relevant findings are: Rate: Rate (enter#) (77) Rhythm: Paced Compare to prior EKG: Old EKG unavailable Computer interpretation: Disagree with computer (Rhythm is paced and not normal sinus rhythm.) - Labs Labs: Laboratory Tests 04/06/24 04/06/24 04/06/24 00:49 00:49 00:49 WBC 11.0 H RBC 3.25 L Hgb 10.1 L Hct 31.4 L MCV 96.6 MCH 31.1 H MCHC 32.2 RDW 13.8 Plt Count 219 MPV 8.6 Neut # (Auto) 8.8 H Lymph # (Auto) 1.2 L [place] # (Auto) 0.9 Eos # (Auto) 0.0 Baso # (Auto) 0.0 Absolute Nucleated RBC 0.00 Nucleated RBC % 0.0 Sodium 121 L Potassium 4.4 Chloride 88 L Carbon Dioxide 27 Anion Gap 6.0 BUN 19 Creatinine 0.6 Estimated GFR (MDRD) 95 Glucose 124 H Calcium 9.2 Total Bilirubin 0.6 AST 24 ALT 30 Alkaline Phosphatase 74 B-Natriuretic Peptide 780 H Total Protein 6.8 Albumin 4.0 Globulin 2.8 Albumin/Globulin Ratio 1.4 Lipase 24 - Rads (name of study) Chest x-ray Relevant Findings:: Final report received, See rad report (Pulmonary edema and congestion. Cardiomegaly.) PD Medical Decision Making - ED course Complexity details: reviewed old records, reviewed results, re-evaluated patient, considered differential, d/w patient ED course: The patient was evaluated by myself upon arrival in the emergency department and. She was fairly comfortable on her arrival with nonlabored respirations and oxygen saturation around 90%. She did report a significant weight gain in just the last several days with noticeable edema in her legs and increasing dyspnea on exertion and I was concerned that she may be having a CHF exacerbation. Chest x-ray showed pulmonary edema. The patient was given 40 mg of Lasix IV. Her BNP was 700 and her sodium was found to be quite low at 121. The patient was also noted to have desaturations into the mid to upper 80s when relaxed or sleeping. She did have some PVCs in between paced beats and I discussed the case with Dr. Valverde, the garnetter on-call for her garnetter's group. After discussing the case he recommended that the patient be admitted to the hospital here and that the HCTZ be discontinued and Lasix restarted. He stated he would like the patient to initially be discharged on Lasix 40 mg daily after she finishes her hospital stay here. He also recommended starting metoprolol XL 25 mg twice daily, once the patient has been able to diurese. He stated that they just interrogated the pacemaker 4 days ago and that PVCs are to be expected and that for now, they prefer to keep the pacemaker rate as is. I discussed the case with Dr. Arredondo, the hospitalist, who has accepted the patient for admission for her CHF exacerbation, hypoxia, and significant hyponatremia. The patient understands the plan and is agreeable. Departure - Departure Disposition: 66 [facility] DC/Xfer Clinical Impression: Hypoxia, Hyponatremia Acute exacerbation of CHF (congestive heart failure) Qualifiers: Heart failure type: unspecified Qualified Code(s): I50.9 - Heart failure, unspecified Condition: Serious Forms: PCP List
[2024-04-06] MEDS ORDERED: SODIUM CHLORIDE 0.65% NASAL SPRAY NAS PRN (03:11)
--- NOTE | 2024-04-06 03:16 | HISTORY & PHYSICAL EXAMINATION ---
Chief Complaint - Chief Complaint Chief Complaint: SOB History of Present Illness - Admitted From Admitted From:: ED - History Obtained From Records Reviewed: EMR History obtained from: ED staff and patient and RN Exam Limitations: Tele medicine - History of Present Illness HPI Comment/Other: 88YOF c CHF, arrhythmia s/p pacemaker, DM2, and atrial fibrillation on Eliquis who presents to the ED reporting SOB for the past week. 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 Per patient's office visit document, she was asked to stop Lasix and diltiazem. She was started on Losartan and HCTZ. Patient also had her pacemaker limit adjusted from HR 70s to 60s. Patient reports increase in weight, BLE swelling, and SOB especially with exertion since her cardiology visit and changing her home medications. She also reports sinus congestion. No chest pain. No palpitation. No n/v/d. In the ED however, patient's HR noted by RN to intermittent drop into the 30s. 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 Cardiovascular: reports: Other - POLST Patient has POLST: No Meds/Allgy - Home Medications Home Medications: Ambulatory Orders Medication Instructions Recorded Confirmed Calcium Carbonate 1 tab PO DAILY 04/08/16 11/05/23 Alendronate [Fosamax] 70 mg PO ONCE 01/16/23 11/05/23 Atorvastatin [Lipitor] 20 mg PO DAILY 01/16/23 11/05/23 Latanoprost 0.005% Ophth Drops 1 drops RIGHTEYE DAILY 01/16/23 11/05/23 [Xalatan Ophth Drops] Losartan Potassium 25 mg PO DAILY 01/16/23 11/05/23 diltiaZEM CD [Cardizem Cd] 120 mg PO DAILY 01/16/23 11/05/23 metFORMIN [Glucophage] 500 mg PO DAILY 01/16/23 11/05/23 Acetaminophen [Acetaminophen Extra See Rx Instructions .ROUTE .COMPLEX 11/05/23 11/05/23 Strength] Apixaban [Eliquis] See Rx Instructions .ROUTE .COMPLEX 11/05/23 11/05/23 Azelastine HCl See Rx Instructions .ROUTE .COMPLEX 11/05/23 11/05/23 Carboxymethylcellulose 1% Opht See Rx Instructions .ROUTE .COMPLEX 11/05/23 11/05/23 [Refresh 1% Ophth Drops] Cbd See Rx Instructions .ROUTE .COMPLEX 11/05/23 11/05/23 Estradiol [Vagifem] See Rx Instructions .ROUTE .COMPLEX 11/05/23 11/05/23 Fluticasone [Flonase] See Rx Instructions .ROUTE .COMPLEX 11/05/23 11/05/23 Furosemide [Lasix] See Rx Instructions .ROUTE .COMPLEX 11/05/23 11/05/23 Latanoprost 0.005% Ophth Drops See Rx Instructions .ROUTE .COMPLEX 11/05/23 11/05/23 [Xalatan Ophth Drops] Loratadine [All Day Allergy Relief] See Rx Instructions .ROUTE .COMPLEX 11/05/23 11/05/23 Losartan [Cozaar] See Rx Instructions .ROUTE .COMPLEX 11/05/23 11/05/23 Mv-Min/FA/Vit K/Lutein/Zeaxant See Rx Instructions .ROUTE .COMPLEX 11/05/23 11/05/23 [Preservision Areds 2 Plus Mv] Prevagen See Rx Instructions .ROUTE .COMPLEX 11/05/23 Rosacea See Rx Instructions .ROUTE .COMPLEX 11/05/23 Sodium Chloride [Simply Saline See Rx Instructions .ROUTE .COMPLEX 11/05/23 11/05/23 Wound Wash] dilTIAZem HCL [Diltiazem 12Hr ER] See Rx Instructions .ROUTE .COMPLEX 11/05/23 11/05/23 metFORMIN [Glucophage] See Rx Instructions .ROUTE .COMPLEX 11/05/23 11/05/23 - Allergies Allergies/Adverse Reactions: Allergies Allergy/AdvReac Type Severity Reaction Status Date / Time cefuroxime axetil * Allergy Cramps Verified 03/10/24 23:15 [From Ceftin] levofloxacin [From Levaquin] Allergy Hallucinati Verified 03/10/24 23:15 ons phenazopyridine Allergy Unknown Verified 03/10/24 23:15 [From Pyridium] Review of Systems - Other Findings Other Findings: negative unless mentioned differently Exam - Vital Signs Reviewed Vital Signs: Yes Vital Signs: Vital Signs x48h Temp Pulse Resp BP Pulse Ox 04/06/24 00:46 36.9 C 78 20 174/82 H 92 04/06/24 00:35 36.9 C 78 24 174/82 H 92 - Physical Exam General Appearance: positive: Mild distress Eyes Bilateral: positive: Normal inspection, No scleral icterus ENT: positive: Other (nasal congestion) Neck: positive: Nml inspection, Trachea midline Cardiovascular: positive: Irregularly irregular Skin: positive: Color nml Extremities: positive: Pedal edema Neurologic/Psychiatric: positive: Oriented x3, CN's nml (2-12) Conclusion/Plan - Problem List (1) Acute exacerbation of CHF (congestive heart failure) Conclusion/Plan: CHF exacerbation 2/2 change in medications e.g. stopping Lasix. will restart Lasix. hold HCTZ/Losartan. fluid restrict. dialy weighing. monitor Na level. monitor on tele. echo. trend cardiac enzymes. consider reaching out to outpatient cardiology for additional input. Qualifiers: Heart failure type: unspecified Qualified Code(s): I50.9 - Heart failure, unspecified (2) Acute hypoxemic respiratory failure Conclusion/Plan: 2/2 CHF exacerbation. O2 support. duoneb. address CHF exacerbation as noted above with Lasix, fluid restriction, and daily weighing. (3) Hyponatremia Conclusion/Plan: likely 2/2 recent start of Losartan/HCTZ. restart Lasix for CHF exacerbation which can lower Na level. stop Losartan/HCTZ. Na support as needed. monitor Na level with repeat BMP. tele monitoring (4) Atrial fibrillation Conclusion/Plan: rate controlled. sejal currently. asmyptomatic. holding dilt as recommended by outside cardiology. monitor on tele. consider reaching out to cardiology for further recommendations regarding pacemaker if HR continues to dip into the 30s. followup cardiac enzymes and echo. continue Eliquis (5) DM2 (diabetes mellitus, type 2) Conclusion/Plan: hold metformin. cover with ssi and monitor with accucheck (6) HLD (hyperlipidemia) Conclusion/Plan: continue home statin therapy - Lab Results Fish Bones: 04/06/24 00:49 04/06/24 00:49 Core Measures - Anticipated LOS I expect patient to be DC'd or transferred within 96 hours.: No - Issues Hospital Issues and Management Plan: The patient consented to receive this telemedicine service, which I performed via live two-way audiovisual equipment. The patient is at [place] and I am physically in [facility]. A nurse assisted me in the visit. Full code SCD, Eliquis Inpatient Saman Arredondo DO Internal Medicine [employer] Telemedicine Consult Details - Provider Location & Consult Time Telemedicine consultation conducted via videoconferencing?: Yes List names and roles of persons who participated in consult:: ED staff, RN, and Patient Telemedicine provider location:: [facility] Time Telemedicine consult began:: 02:37 Time Telemedicine consult completed:: 03:37
[2024-04-06] MEDS: AMOX/CLAV 875 MG/125 MG TABLET PO SCH (04:19)
[2024-04-06] MEDS: SODIUM CHLORIDE 1 GM TABLET PO SCH (04:19)
[2024-04-06] MEDS: ONDANSETRON 4 MG/2 ML VIAL IVP PRN (04:34)
[2024-04-06] MEDS: hydrALAZINE INJ 20 MG/ML VIAL IVP PRN (04:42)
[2024-04-06] MEDS: ACETAMINOPHEN 325 MG TABLET PO PRN (05:08)
[2024-04-06 05:30] LABS: CALCIUM 9.2 mg/dL (8.5-10.3); CREATININE 0.6 mg/dL (0.6-1.3); POTASSIUM 3.8 mmol/L (3.5-4.5)
[2024-04-06 05:36] LABS: PROCALCITONIN 0.06 ng/mL (<0.5)
[2024-04-06 05:37] LABS: TROPONIN I HIGH SENSITIVITY 21.1 ng/L (2.3-14.8)
[2024-04-06 05:44] LABS: THYROID STIMULATING HORMONE 3.09 uIU/mL (0.34-5.60)
[2024-04-06] MEDS ORDERED: IPRATROPIUM/ALBUTEROL 3 ML NEB INH PRN (07:43)
[2024-04-06] MEDS: IPRATROPIUM/ALBUTEROL 3 ML NEB INH SCH (07:45)
[2024-04-06] MEDS: INSULIN LISPRO 300 UNIT/3 ML PEN SUBQ SCH (08:13)
[2024-04-06] MEDS: FUROSEMIDE 40 MG/4 ML VIAL IVP SCH ×2 (08:14→09:15)
[2024-04-06] MEDS: LOSARTAN 50 MG TABLET PO SCH (08:14)
[2024-04-06] MEDS: ATORVASTATIN 10 MG TABLET PO SCH (08:14)
[2024-04-06] MEDS: LORATADINE 10 MG TABLET PO SCH (08:14)
[2024-04-06] MEDS: SODIUM CHLORIDE FLUSH 0.9% 10 ML SYRINGE IVP SCH (08:15)
[2024-04-06] MEDS: APIXABAN 2.5 MG TABLET PO SCH (08:15)
--- NOTE | 2024-04-06 08:28 | PROVIDER PROGRESS NOTE ---
Subjective - Prog Note Date Prog Note Date: 04/06/24 Prog Note Time: 08:30 - Subjective Pt reports feeling: Improved Subjective: The patient is an 88-year-old female who presented to the emergency room with decompensated heart failure. She had recently seen her professor of literature and had been taken off of her Cardizem as well as her Lasix. She had been started on a losartan/hydrochlorothiazide combo medication for her blood pressure. Chest x-ray at the time of admission revealed pulmonary edema. She was found to be hyponatremic with a sodium level of 121. She was admitted to the hospital. An echocardiogram has been ordered. She was given IV Lasix. Initially she was hypoxic but this morning her oxygen saturations are in the low 90s on room air. When I went to see her she states that she is feeling quite a bit better but is not quite back to her baseline. She denies fever or shaking chills. She has not had any chest pain. She has some shortness of breath but greatly improved from the time of admission. She has had no nausea vomiting or diarrhea. No urinary complaints. Of note a new POLST form has been filled out and the patient's CODE STATUS has been changed to a DO NOT RESUSCITATE. Current Medications - Current Medications Current Medications: Active Medications Generic Name Dose Route Start Last Admin Trade Name Deniz PRN Reason Stop Dose Admin Acetaminophen 650 mg 04/06/24 02:39 04/06/24 05:08 Acetaminophen 325 Mg Tablet PO 650 mg Q4HR PRN Administration Pain 1 to 4, or Fever Albuterol/Ipratropium 3 ml 04/06/24 07:43 Ipratropium/Albuterol 3 Ml Neb INH Q6HR PRN Wheezing Amoxicillin/Clavulanate Potassium 1 tab 04/06/24 03:11 04/06/24 08:14 Amox/Clav 875 Mg/125 Mg Tablet PO 1 tab BID SAADIA Administration Apixaban 2.5 mg 04/06/24 09:00 04/06/24 08:15 Apixaban 2.5 Mg Tablet PO 2.5 mg BID SAADIA Administration Atorvastatin Calcium 20 mg 04/06/24 09:00 04/06/24 08:14 Atorvastatin 10 Mg Tablet PO 20 mg DAILY SAADIA Administration Furosemide 40 mg 04/06/24 09:00 04/06/24 08:14 Furosemide 40 Mg/4 Ml Vial IVP 40 mg DAILY SAADIA Administration Hydralazine HCl 10 mg 04/06/24 03:02 04/06/24 04:42 Hydralazine Inj 20 Mg/Ml Vial IVP 10 mg Q6HR PRN Administration sbp>160 Insulin Human Lispro 0 unit 04/06/24 08:00 04/06/24 08:13 Insulin Lispro 300 Unit/3 Ml Pen SUBQ 1 unit TIDWM SAADIA Administration Protocol Loratadine 10 mg 04/06/24 09:00 04/06/24 08:14 Loratadine 10 Mg Tablet PO 10 mg DAILY SAADIA Administration Losartan Potassium 25 mg 04/06/24 09:00 04/06/24 08:14 Losartan 50 Mg Tablet PO 25 mg DAILY SAADIA Administration Ondansetron HCl 4 mg 04/06/24 02:39 04/06/24 04:34 Ondansetron 4 Mg/2 Ml Vial IVP 4 mg Q6HR PRN Administration Nausea / Vomiting Sodium Chloride 10 ml 04/06/24 02:39 Sodium Chloride Flush 0.9% 10 Ml Syringe IVP PRN PRN NEEDED PER PROVIDER ORDERS Sodium Chloride 10 ml 04/06/24 09:00 04/06/24 08:15 Sodium Chloride Flush 0.9% 10 Ml Syringe IVP 10 ml 0100,0900,1700 SAADIA Administration Sodium Chloride 1 gm 04/06/24 03:00 04/06/24 04:19 Sodium Chloride 1 Gm Tablet PO 04/07/24 02:59 1 gm ONCE SAADIA Administration Sodium Chloride 2 sprays 04/06/24 03:11 Sodium Chloride 0.65% Nasal [place] TISH Q4HR PRN Nasal Congestion Calcium Carbonate 1 tab PO DAILY 04/08/16 Alendronate [Fosamax] 70 mg PO ONCE 01/16/23 Atorvastatin [Lipitor] 20 mg PO DAILY 01/16/23 Latanoprost 0.005% Ophth Drops [Xalatan Ophth Drops] 1 drops RIGHTEYE DAILY 01/16/23 Losartan Potassium 25 mg PO DAILY 01/16/23 diltiaZEM CD [Cardizem Cd] 120 mg PO DAILY 01/16/23 metFORMIN [Glucophage] 500 mg PO DAILY 01/16/23 Acetaminophen [Acetaminophen Extra Strength] See Rx Instructions .ROUTE .COMPLEX 11/05/23 Apixaban [Eliquis] See Rx Instructions .ROUTE .COMPLEX 11/05/23 Azelastine HCl See Rx Instructions .ROUTE .COMPLEX 11/05/23 Carboxymethylcellulose 1% Opht [Refresh 1% Ophth Drops] See Rx Instructions .ROUTE .COMPLEX 11/05/23 Cbd See Rx Instructions .ROUTE .COMPLEX 11/05/23 Estradiol [Vagifem] See Rx Instructions .ROUTE .COMPLEX 11/05/23 Fluticasone [Flonase] See Rx Instructions .ROUTE .COMPLEX 11/05/23 Furosemide [Lasix] See Rx Instructions .ROUTE .COMPLEX 11/05/23 Latanoprost 0.005% Ophth Drops [Xalatan Ophth Drops] See Rx Instructions .ROUTE .COMPLEX 11/05/23 Loratadine [All Day Allergy Relief] See Rx Instructions .ROUTE .COMPLEX 11/05/23 Losartan [Cozaar] See Rx Instructions .ROUTE .COMPLEX 11/05/23 Mv-Min/FA/Vit K/Lutein/Zeaxant [Preservision Areds 2 Plus Mv] See Rx Instructions .ROUTE .COMPLEX 11/05/23 Prevagen See Rx Instructions .ROUTE .COMPLEX 11/05/23 Rosacea See Rx Instructions .ROUTE .COMPLEX 11/05/23 Sodium Chloride [Simply Saline Wound Wash] See Rx Instructions .ROUTE .COMPLEX 11/05/23 dilTIAZem HCL [Diltiazem 12Hr ER] See Rx Instructions .ROUTE .COMPLEX 11/05/23 metFORMIN [Glucophage] See Rx Instructions .ROUTE .COMPLEX 11/05/23 Objective - Vital Signs/Intake & Output Vital Signs: Vital Signs x48h Temp Pulse Pulse Pulse Resp BP BP 04/06/24 07:44 37.6 C 61 18 138/55 H 04/06/24 05:50 62 118/50 L 04/06/24 05:36 61 122/49 L 04/06/24 05:33 62 96/79 04/06/24 05:18 63 130/61 04/06/24 05:12 130/61 04/06/24 05:03 61 125/47 L 04/06/24 04:55 61 118/57 L 04/06/24 04:47 60 140/56 H 04/06/24 04:42 184/76 H 04/06/24 04:21 165/61 H 04/06/24 04:06 36.6 C 61 22 160/74 H 04/06/24 00:46 36.9 C 78 20 174/82 H 04/06/24 00:35 36.9 C 78 24 174/82 H Pulse Ox 04/06/24 07:44 92 04/06/24 05:50 04/06/24 05:36 04/06/24 05:33 04/06/24 05:18 04/06/24 05:12 04/06/24 05:03 04/06/24 04:55 04/06/24 04:47 04/06/24 04:42 04/06/24 04:21 04/06/24 04:06 93 04/06/24 00:46 92 04/06/24 00:35 92 - Objective General Appearance: positive: No acute distress, Other (She has evidence of rosacea) Eyes Bilateral: positive: Normal inspection ENT: positive: ENT inspection nml Neck: positive: Nml inspection Respiratory: positive: Chest non-tender, No respiratory distress, Other (Okay okay okay she has some fine crackles in the lower bases bilaterally) Cardiovascular: positive: Regular rate & rhythm, No murmur, No gallop. negative: Friction rub Abdomen: positive: Non-tender, No organomegaly, Nml bowel sounds. negative: Guarding, Rebound Skin: positive: Color nml, No rash, Warm, Dry Extremities: positive: Non-tender, Full ROM, Nml appearance Neurologic/Psychiatric: positive: Oriented x3, CN's nml (2-12) - Lab Results Fish Bones: 04/06/24 00:49 04/06/24 04:55 Other Labs: Lab Results x24hrs 04/06/24 04/06/24 04/06/24 Range/Units 07:44 04:55 00:49 WBC (4.8-10.8) x10^3/uL RBC (4.20-5.40) 10^6/uL Hgb (12.0-16.0) g/dL Hct (37.0-47.0) % MCV (81.0-99.0) fL MCH (27.0-31.0) pg MCHC (32.0-36.0) g/dL RDW (12.0-15.0) % Plt Count (130-450) 10^3/uL MPV (7.9-10.8) fL Neut # (Auto) (1.5-6.6) 10^3/uL Lymph # (Auto) (1.5-3.5) 10^3/uL [place] # (Auto) (0.0-1.0) 10^3/uL Eos # (Auto) (0.0-0.7) 10^3/uL Baso # (Auto) (0.0-0.1) 10^3/uL Absolute Nucleated RBC x10^3/uL Nucleated RBC % /100WBC Sodium 123 L (135-145) mmol/L Potassium 3.8 (3.5-4.5) mmol/L Chloride 86 L (101-111) mmol/L Carbon Dioxide 30 (21-32) mmol/L Anion Gap 7.0 (6-13) BUN 18 (6-20) mg/dL Creatinine 0.6 (0.6-1.3) mg/dL Estimated GFR (MDRD) 95 (>89) Glucose 212 H (74-104) mg/dL POC Whole Bld Glucose 166 H (70 - 100) mg/dL Calcium 9.2 (8.5-10.3) mg/dL Total Bilirubin (0.2-1.0) mg/dL AST (10-42) IU/L ALT (10-60) IU/L Alkaline Phosphatase (42-121) IU/L Troponin I High Sens 21.1 H* (2.3-14.8) ng/L B-Natriuretic Peptide 780 H (5-100) pg/mL Total Protein (6.4-8.9) g/dL Albumin (3.2-5.5) g/dL Globulin (2.1-4.2) g/dL Albumin/Globulin Ratio (1.0-2.2) Lipase (11-82) U/L Procalcitonin Immunoas 0.06 (<0.5) ng/mL TSH 3.09 (0.34-5.60) uIU/mL 04/06/24 04/06/24 Range/Units 00:49 00:49 WBC 11.0 H (4.8-10.8) x10^3/uL RBC 3.25 L (4.20-5.40) 10^6/uL Hgb 10.1 L (12.0-16.0) g/dL Hct 31.4 L (37.0-47.0) % MCV 96.6 (81.0-99.0) fL MCH 31.1 H (27.0-31.0) pg MCHC 32.2 (32.0-36.0) g/dL RDW 13.8 (12.0-15.0) % Plt Count 219 (130-450) 10^3/uL MPV 8.6 (7.9-10.8) fL Neut # (Auto) 8.8 H (1.5-6.6) 10^3/uL Lymph # (Auto) 1.2 L (1.5-3.5) 10^3/uL [place] # (Auto) 0.9 (0.0-1.0) 10^3/uL Eos # (Auto) 0.0 (0.0-0.7) 10^3/uL Baso # (Auto) 0.0 (0.0-0.1) 10^3/uL Absolute Nucleated RBC 0.00 x10^3/uL Nucleated RBC % 0.0 /100WBC Sodium 121 L (135-145) mmol/L Potassium 4.4 (3.5-4.5) mmol/L Chloride 88 L (101-111) mmol/L Carbon Dioxide 27 (21-32) mmol/L Anion Gap 6.0 (6-13) BUN 19 (6-20) mg/dL Creatinine 0.6 (0.6-1.3) mg/dL Estimated GFR (MDRD) 95 (>89) Glucose 124 H (74-104) mg/dL POC Whole Bld Glucose (70 - 100) mg/dL Calcium 9.2 (8.5-10.3) mg/dL Total Bilirubin 0.6 (0.2-1.0) mg/dL AST 24 (10-42) IU/L ALT 30 (10-60) IU/L Alkaline Phosphatase 74 (42-121) IU/L Troponin I High Sens (2.3-14.8) ng/L B-Natriuretic Peptide (5-100) pg/mL Total Protein 6.8 (6.4-8.9) g/dL Albumin 4.0 (3.2-5.5) g/dL Globulin 2.8 (2.1-4.2) g/dL Albumin/Globulin Ratio 1.4 (1.0-2.2) Lipase 24 (11-82) U/L Procalcitonin Immunoas (<0.5) ng/mL TSH (0.34-5.60) uIU/mL ABX Reporting Has patient been on IV antibiotics over the past 48 hours?: No Sepsis Event Note (H) - Evaluation Current Stage of Sepsis: Ruled out Assessment/Plan - Problem List (1) Acute hypoxemic respiratory failure Impression: Secondary to decompensated heart failure. Resolved. Her oxygen saturations are still on the low side but maintaining in the low 90s on room air. (2) Acute on chronic diastolic (congestive) heart failure Impression: This is presumed diastolic heart failure at this point. 2D echocardiogram has been ordered. The patient had recently been taken off of her Lasix in the outpatient setting and presented decompensated. Continue Lasix 40 mg twice daily IV for now. (3) Non-ischemic myocardial injury (non-traumatic) Impression: The patient's troponin is elevated. Will continue to trend. At this point I suspect this is a nonischemic myocardial injury due to her decompensated heart failure and respiratory failure. The patient is actively following with card iology and has an appointment in about 2 weeks. No further workup unless she develops further symptoms or has a significant increase in her troponin today. (4) Permanent atrial fibrillation Impression: Currently rate controlled. She will remain on telemetry. Her Cardizem was recently held by her professor of literature. Simply continue to monitor for now. She is on Eliquis for anticoagulation (5) Obstructive sleep apnea on CPAP Impression: Her CPAP was not ordered on admission. Will order CPAP for tonight. (6) DM2 (diabetes mellitus, type 2) Impression: Continue sliding scale coverage. The patient takes metformin at home which has been held (7) Hyponatremia Impression: Likely due to initiation of thiazide diuretic. This has been held. Sodium level is now up to 123. She will have a chemistry panel in the morning. (8) HLD (hyperlipidemia) Impression: Continue atorvastatin 20 mg daily (9) Hypertension Impression: Her Cardizem was recently stopped by her professor of literature. Continue losartan 25 mg daily. Her hydrochlorothiazide has been stopped (10) Glaucoma Impression: Continue eyedrops Disposition: Ongoing hospitalization remains necessary. The patient's sodium is still quite low. She is requiring IV diuresis. Also she has an elevated troponin that we are going to trend today. I am hopeful that she will be able to leave the hospital within the next 24 to 48 hours Time spent: 35 minutes
[2024-04-06] MEDS ORDERED: HEPARIN 5,000 UNIT/ML VIAL SUBQ SCH (09:00)
[2024-04-06 11:19] LABS: CALCIUM 8.5 mg/dL (8.5-10.3); CREATININE 0.7 mg/dL (0.6-1.3); POTASSIUM 3.6 mmol/L (3.5-4.5)
--- NOTE | 2024-04-06 15:55 | PHARMACY PROGRESS NOTE ---
- Best Possible Medication History Admit Date and Time: 04/06/24 0318 Processed by: Pharmacy (Medication Reconciliation completed by [employer] OperatorMarck) Medications reviewed in ED?: No Medication History completed: Yes Patient Interview: Completed Secondary Source(s): Written medication list, Insurance records (Of note: patient was on valsartan-hctz 80-12.5mg tab daily but states that is why she is in here and she wont take it any more) As the person ultimately responsible for medication therapy, providers are able to order a medication from an existing home medication list in [facility] via the "Reconcile Routine" prior to Confirmation of that medication by network and threat support specialist. Such practice is discouraged except when the physician, in their clinical judgment, deems that a medical need exists for a medication without regard to previous use.
[2024-04-06] MEDS: SODIUM CHLORIDE 1 GM TABLET PO ONE (16:59)
[2024-04-07 05:38] LABS: BASOPHILS % (AUTO) 0.1 %; EOSINOPHILS # (AUTO) 0.1 10^3/uL (0.0-0.7); EOSINOPHILS % (AUTO) 0.6 %; HCT - HEMATOCRIT 31.8 % (37.0-47.0); HGB - HEMOGLOBIN 10.6 g/dL (12.0-16.0); LYMPHOCYTES % (AUTO) 11.6 %; MEAN CORPUSCULAR HEMOGLOBIN 31.5 pg (27.0-31.0); MEAN CORPUSCULAR HGB CONC 33.3 g/dL (32.0-36.0); MEAN CORPUSCULAR VOLUME 94.4 fL (81.0-99.0); MEAN PLATELET VOLUME 8.9 fL (7.9-10.8); MONOCYTES # (AUTO) 0.7 10^3/uL (0.0-1.0); MONOCYTES % (AUTO) 7.7 %; NEUTROPHILS % (AUTO) 79.5 %; PLT - PLATELET COUNT 246 10^3/uL (130-450); RED BLOOD COUNT 3.37 10^6/uL (4.20-5.40); RED CELL DISTRIBUTION WIDTH 13.7 % (12.0-15.0); WHITE BLOOD COUNT 8.8 x10^3/uL (4.8-10.8)
[2024-04-07 05:51] LABS: ALBUMIN 3.5 g/dL (3.2-5.5); ALBUMIN/GLOBULIN RATIO 1.4 (1.0-2.2); BILIRUBIN,TOTAL 0.7 mg/dL (0.2-1.0); CALCIUM 8.4 mg/dL (8.5-10.3); CREATININE 0.6 mg/dL (0.6-1.3); MAGNESIUM 1.6 mg/dL (1.7-2.3); PHOSPHORUS 3.2 mg/dL (2.5-5.0); POTASSIUM 3.9 mmol/L (3.5-4.5)
[2024-04-07 08:48] LABS: INFLUENZA A- RESP PCR PANEL NOT DETECTED; INFLUENZA B - RESP PCR PANEL NOT DETECTED; RSV- RESP PCR PANEL NOT DETECTED; SARS-CoV-2 -RESP PCR PANEL NOT DETECTED
--- NOTE | 2024-04-07 10:21 | PROVIDER PROGRESS NOTE ---
Subjective - Prog Note Date Prog Note Date: 04/07/24 Prog Note Time: 10:19 - Subjective Pt reports feeling: Improved Subjective: The patient is an 88-year-old female who presented to the emergency room with decompensated heart failure. She had recently seen her track fitter and had been taken off of her Cardizem as well as her Lasix. She had been started on a losartan/hydrochlorothiazide combo medication for her blood pressure. Chest x-ray at the time of admission revealed pulmonary edema. She was found to be hyponatremic with a sodium level of 121. She was admitted to the hospital. An echocardiogram has been ordered. She was given IV Lasix. Initially she was hypoxic but this morning her oxygen saturations are in the low 90s on room air. When I went to see her she was sitting up in a chair, alert and off oxygen and had just finished her breakfast. She stated she is feeling quite a bit better but notes she is currently walking with a walker as she was unsteady yesterday. She does not use a walker at home. She would like to get up and walk around the unit today and I encouraged her to do so. She denies chest pain, fever or shaking chills, nausea, vomiting, or urinary symptoms. She says her ankles have returned to their normal size. She has some shortness of breath but greatly improved from the time of admission and she is able to ambulate to the bathroom without difficulty. Her sodium remains low, decreasing from 121 upon initial ED presentation to 117 and increased to 123 this morning. We discussed the need to stabilize her sodium before she can be discharged. Current Medications - Current Medications Current Medications: Active Medications Generic Name Dose Route Start Last Admin Trade Name Freq PRN Reason Stop Dose Admin Acetaminophen 650 mg 04/06/24 02:39 04/06/24 05:08 Acetaminophen 325 Mg Tablet PO 650 mg Q4HR PRN Administration Pain 1 to 4, or Fever Albuterol/Ipratropium 3 ml 04/06/24 07:43 Ipratropium/Albuterol 3 Ml Neb INH Q6HR PRN Wheezing Amoxicillin/Clavulanate Potassium 1 tab 04/06/24 03:11 04/07/24 08:39 Amox/Clav 875 Mg/125 Mg Tablet PO 1 tab BID SAADIA Administration Apixaban 2.5 mg 04/06/24 09:00 04/07/24 08:39 Apixaban 2.5 Mg Tablet PO 2.5 mg BID SAADIA Administration Atorvastatin Calcium 20 mg 04/06/24 09:00 04/07/24 08:39 Atorvastatin 10 Mg Tablet PO 20 mg DAILY SAADIA Administration Furosemide 40 mg 04/06/24 09:00 04/07/24 08:39 Furosemide 40 Mg/4 Ml Vial IVP 40 mg BID SAADIA Administration Furosemide 40 mg 04/08/24 09:00 Furosemide 40 Mg Tablet PO DAILY [facility] Hydralazine HCl 10 mg 04/06/24 03:02 04/06/24 04:42 Hydralazine Inj 20 Mg/Ml Vial IVP 10 mg Q6HR PRN Administration sbp>160 Insulin Human Lispro 1 - 5 unit 04/07/24 12:00 04/07/24 11:27 Insulin Lispro 300 Unit/3 Ml Pen SUBQ Not Given 0800,1200,1700,2100 [facility] Protocol Loratadine 10 mg 04/06/24 09:00 04/07/24 08:39 Loratadine 10 Mg Tablet PO 10 mg DAILY SAADIA Administration Losartan Potassium 25 mg 04/06/24 09:00 04/07/24 08:39 Losartan 50 Mg Tablet PO 25 mg DAILY SAADIA Administration Ondansetron HCl 4 mg 04/06/24 02:39 04/06/24 22:36 Ondansetron 4 Mg/2 Ml Vial IVP 4 mg Q6HR PRN Administration Nausea / Vomiting Sodium Chloride 10 ml 04/06/24 02:39 Sodium Chloride Flush 0.9% 10 Ml Syringe IVP PRN PRN NEEDED PER PROVIDER ORDERS Sodium Chloride 10 ml 04/06/24 09:00 04/07/24 08:39 Sodium Chloride Flush 0.9% 10 Ml Syringe IVP 10 ml 0100,0900,1700 SAADIA Administration Sodium Chloride 2 sprays 04/06/24 03:11 Sodium Chloride 0.65% Nasal [place] TISH Q4HR PRN Nasal Congestion Sodium Chloride 1 gm 04/07/24 11:00 04/07/24 11:27 Sodium Chloride 1 Gm Tablet PO 1 gm DAILY SAADIA Administration Alendronate [Fosamax] 70 mg PO OAW 01/16/23 metFORMIN [Glucophage] 500 mg PO BID 01/16/23 Acetaminophen [Acetaminophen Extra Strength] 500 mg PO BID 11/05/23 Apixaban [Eliquis] 2.5 mg PO BID 11/05/23 Carboxymethylcellulose 1% Opht [Refresh 1% Ophth Drops] 1 drops EACHEYE BID PRN 11/05/23 Estradiol [Vagifem] 10 mg VG UD 11/05/23 Atorvastatin [Lipitor] 20 mg PO DAILY 04/06/24 Calcium Carbonate/Vitamin D3 [Calcium 600 mg-Vit D3 10Mcg Tb] 1 each PO DAILY 04/06/24 Fluticasone Propionate 50 mcg IH BID 04/06/24 Metronidazole 1% Gel [Metrogel] 60 gm TP QPM 04/06/24 Objective - Vital Signs/Intake & Output Reviewed Vital Signs: Yes Vital Signs: Vital Signs x48h Temp Pulse Resp BP Pulse Ox 04/07/24 07:25 36.8 C 62 16 141/60 H 92 04/07/24 03:59 36.1 C L 61 18 139/57 H 93 Intake & Output: Intake & Output 04/04/24 04/05/24 04/06/24 04/07/24 23:59 23:59 23:59 23:59 Intake Total 2160 440 Output Total 1510 1650 Balance 650 -1210 - Objective General Appearance: positive: No acute distress, Alert, Other (88 y/o female seated in chair, alert and conversant) Eyes Bilateral: positive: Normal inspection Neck: positive: Nml inspection, No JVD, Trachea midline Respiratory: positive: Chest non-tender, No respiratory distress, Rales (Bilat bases, L>R). negative: Breath sounds nml, Wheezes, Rhonchi Cardiovascular: positive: No gallop, Irregularly irregular, Systolic murmur (Loudest over L lower sternal border with radiation to axilla), Other (Pacemaker present L upper chest). negative: Diastolic murmur Peripheral Pulses: 2+ Radial (R), 2+ Radial (L), 2+ Dorsalis pedis (R), 2+ Dorsalis pedis (L) Back: positive: Nml inspection Skin: positive: Color nml, No rash, Warm, Dry, Other (hemosideran staining bilateral ankles in sock distribution with widespread small vericosities) Extremities: positive: Non-tender, No pedal edema Neurologic/Psychiatric: positive: Oriented x3, CN's nml (2-12), Motor nml, Sensation nml, Mood/affect nml - Lab Results Fish Bones: 04/07/24 05:20 04/07/24 09:05 Other Labs: Lab Results x24hrs 04/07/24 04/07/24 04/07/24 Range/Units 09:05 07:21 07:00 WBC (4.8-10.8) x10^3/uL RBC (4.20-5.40) 10^6/uL Hgb (12.0-16.0) g/dL Hct (37.0-47.0) % MCV (81.0-99.0) fL MCH (27.0-31.0) pg MCHC (32.0-36.0) g/dL RDW (12.0-15.0) % Plt Count (130-450) 10^3/uL MPV (7.9-10.8) fL Neut # (Auto) (1.5-6.6) 10^3/uL Lymph # (Auto) (1.5-3.5) 10^3/uL [place] # (Auto) (0.0-1.0) 10^3/uL Eos # (Auto) (0.0-0.7) 10^3/uL Baso # (Auto) (0.0-0.1) 10^3/uL Absolute Nucleated RBC x10^3/uL Nucleated RBC % /100WBC Sodium 122 L (135-145) mmol/L Potassium (3.5-4.5) mmol/L Chloride (101-111) mmol/L Carbon Dioxide (21-32) mmol/L Anion Gap (6-13) BUN (6-20) mg/dL Creatinine (0.6-1.3) mg/dL Estimated GFR (MDRD) (>89) Glucose (74-104) mg/dL POC Whole Bld Glucose 128 H (70 - 100) mg/dL Calcium (8.5-10.3) mg/dL Phosphorus (2.5-5.0) mg/dL Magnesium (1.7-2.3) mg/dL Total Bilirubin (0.2-1.0) mg/dL AST (10-42) IU/L ALT (10-60) IU/L Alkaline Phosphatase (42-121) IU/L Troponin I High Sens (2.3-14.8) ng/L B-Natriuretic Peptide (5-100) pg/mL Total Protein (6.4-8.9) g/dL Albumin (3.2-5.5) g/dL Globulin (2.1-4.2) g/dL Albumin/Globulin Ratio (1.0-2.2) Urine Sodium mmol/L Nasal Influenza B PCR NOT DETECTED Nasal Influenza A PCR NOT DETECTED Nasal RSV (PCR) NOT DETECTED Nasal SARS-CoV-2 (PCR) NOT DETECTED 04/07/24 04/07/24 04/07/24 Range/Units 05:20 05:20 05:20 WBC 8.8 (4.8-10.8) x10^3/uL RBC 3.37 L (4.20-5.40) 10^6/uL Hgb 10.6 L (12.0-16.0) g/dL Hct 31.8 L (37.0-47.0) % MCV 94.4 (81.0-99.0) fL MCH 31.5 H (27.0-31.0) pg MCHC 33.3 (32.0-36.0) g/dL RDW 13.7 (12.0-15.0) % Plt Count 246 (130-450) 10^3/uL MPV 8.9 (7.9-10.8) fL Neut # (Auto) 7.0 H (1.5-6.6) 10^3/uL Lymph # (Auto) 1.0 L (1.5-3.5) 10^3/uL [place] # (Auto) 0.7 (0.0-1.0) 10^3/uL Eos # (Auto) 0.1 (0.0-0.7) 10^3/uL Baso # (Auto) 0.0 (0.0-0.1) 10^3/uL Absolute Nucleated RBC 0.00 x10^3/uL Nucleated RBC % 0.0 /100WBC Sodium 123 L (135-145) mmol/L Potassium 3.9 (3.5-4.5) mmol/L Chloride 86 L (101-111) mmol/L Carbon Dioxide 32 (21-32) mmol/L Anion Gap 5.0 L (6-13) BUN 17 (6-20) mg/dL Creatinine 0.6 (0.6-1.3) mg/dL Estimated GFR (MDRD) 95 (>89) Glucose 137 H (74-104) mg/dL POC Whole Bld Glucose (70 - 100) mg/dL Calcium 8.4 L (8.5-10.3) mg/dL Phosphorus 3.2 (2.5-5.0) mg/dL Magnesium 1.6 L (1.7-2.3) mg/dL Total Bilirubin 0.7 (0.2-1.0) mg/dL AST 20 (10-42) IU/L ALT 24 (10-60) IU/L Alkaline Phosphatase 63 (42-121) IU/L Troponin I High Sens (2.3-14.8) ng/L B-Natriuretic Peptide 805 H (5-100) pg/mL Total Protein 6.0 L (6.4-8.9) g/dL Albumin 3.5 (3.2-5.5) g/dL Globulin 2.5 (2.1-4.2) g/dL Albumin/Globulin Ratio 1.4 (1.0-2.2) Urine Sodium mmol/L Nasal Influenza B PCR Nasal Influenza A PCR Nasal RSV (PCR) Nasal SARS-CoV-2 (PCR) 04/07/24 04/06/24 04/06/24 Range/Units 03:05 21:45 21:18 WBC (4.8-10.8) x10^3/uL RBC (4.20-5.40) 10^6/uL Hgb (12.0-16.0) g/dL Hct (37.0-47.0) % MCV (81.0-99.0) fL MCH (27.0-31.0) pg MCHC (32.0-36.0) g/dL RDW (12.0-15.0) % Plt Count (130-450) 10^3/uL MPV (7.9-10.8) fL Neut # (Auto) (1.5-6.6) 10^3/uL Lymph # (Auto) (1.5-3.5) 10^3/uL [place] # (Auto) (0.0-1.0) 10^3/uL Eos # (Auto) (0.0-0.7) 10^3/uL Baso # (Auto) (0.0-0.1) 10^3/uL Absolute Nucleated RBC x10^3/uL Nucleated RBC % /100WBC Sodium 122 L 117 L* (135-145) mmol/L Potassium (3.5-4.5) mmol/L Chloride (101-111) mmol/L Carbon Dioxide (21-32) mmol/L Anion Gap (6-13) BUN (6-20) mg/dL Creatinine (0.6-1.3) mg/dL Estimated GFR (MDRD) (>89) Glucose (74-104) mg/dL POC Whole Bld Glucose (70 - 100) mg/dL Calcium (8.5-10.3) mg/dL Phosphorus (2.5-5.0) mg/dL Magnesium (1.7-2.3) mg/dL Total Bilirubin (0.2-1.0) mg/dL AST (10-42) IU/L ALT (10-60) IU/L Alkaline Phosphatase (42-121) IU/L Troponin I High Sens (2.3-14.8) ng/L B-Natriuretic Peptide (5-100) pg/mL Total Protein (6.4-8.9) g/dL Albumin (3.2-5.5) g/dL Globulin (2.1-4.2) g/dL Albumin/Globulin Ratio (1.0-2.2) Urine Sodium 44.5 mmol/L Nasal Influenza B PCR Nasal Influenza A PCR Nasal RSV (PCR) Nasal SARS-CoV-2 (PCR) 04/06/24 04/06/24 04/06/24 Range/Units 20:41 15:14 13:42 WBC (4.8-10.8) x10^3/uL RBC (4.20-5.40) 10^6/uL Hgb (12.0-16.0) g/dL Hct (37.0-47.0) % MCV (81.0-99.0) fL MCH (27.0-31.0) pg MCHC (32.0-36.0) g/dL RDW (12.0-15.0) % Plt Count (130-450) 10^3/uL MPV (7.9-10.8) fL Neut # (Auto) (1.5-6.6) 10^3/uL Lymph # (Auto) (1.5-3.5) 10^3/uL [place] # (Auto) (0.0-1.0) 10^3/uL Eos # (Auto) (0.0-0.7) 10^3/uL Baso # (Auto) (0.0-0.1) 10^3/uL Absolute Nucleated RBC x10^3/uL Nucleated RBC % /100WBC Sodium 117 L* (135-145) mmol/L Potassium (3.5-4.5) mmol/L Chloride (101-111) mmol/L Carbon Dioxide (21-32) mmol/L Anion Gap (6-13) BUN (6-20) mg/dL Creatinine (0.6-1.3) mg/dL Estimated GFR (MDRD) (>89) Glucose (74-104) mg/dL POC Whole Bld Glucose 223 H (70 - 100) mg/dL Calcium (8.5-10.3) mg/dL Phosphorus (2.5-5.0) mg/dL Magnesium (1.7-2.3) mg/dL Total Bilirubin (0.2-1.0) mg/dL AST (10-42) IU/L ALT (10-60) IU/L Alkaline Phosphatase (42-121) IU/L Troponin I High Sens 24.9 H* (2.3-14.8) ng/L B-Natriuretic Peptide (5-100) pg/mL Total Protein (6.4-8.9) g/dL Albumin (3.2-5.5) g/dL Globulin (2.1-4.2) g/dL Albumin/Globulin Ratio (1.0-2.2) Urine Sodium mmol/L Nasal Influenza B PCR Nasal Influenza A PCR Nasal RSV (PCR) Nasal SARS-CoV-2 (PCR) 04/06/24 04/06/24 Range/Units 11:41 10:57 WBC (4.8-10.8) x10^3/uL RBC (4.20-5.40) 10^6/uL Hgb (12.0-16.0) g/dL Hct (37.0-47.0) % MCV (81.0-99.0) fL MCH (27.0-31.0) pg MCHC (32.0-36.0) g/dL RDW (12.0-15.0) % Plt Count (130-450) 10^3/uL MPV (7.9-10.8) fL Neut # (Auto) (1.5-6.6) 10^3/uL Lymph # (Auto) (1.5-3.5) 10^3/uL [place] # (Auto) (0.0-1.0) 10^3/uL Eos # (Auto) (0.0-0.7) 10^3/uL Baso # (Auto) (0.0-0.1) 10^3/uL Absolute Nucleated RBC x10^3/uL Nucleated RBC % /100WBC Sodium 120 L* (135-145) mmol/L Potassium 3.6 (3.5-4.5) mmol/L Chloride 84 L (101-111) mmol/L Carbon Dioxide 30 (21-32) mmol/L Anion Gap 6.0 (6-13) BUN 18 (6-20) mg/dL Creatinine 0.7 (0.6-1.3) mg/dL Estimated GFR (MDRD) 79 L (>89) Glucose 180 H (74-104) mg/dL POC Whole Bld Glucose 148 H (70 - 100) mg/dL Calcium 8.5 (8.5-10.3) mg/dL Phosphorus (2.5-5.0) mg/dL Magnesium (1.7-2.3) mg/dL Total Bilirubin (0.2-1.0) mg/dL AST (10-42) IU/L ALT (10-60) IU/L Alkaline Phosphatase (42-121) IU/L Troponin I High Sens (2.3-14.8) ng/L B-Natriuretic Peptide (5-100) pg/mL Total Protein (6.4-8.9) g/dL Albumin (3.2-5.5) g/dL Globulin (2.1-4.2) g/dL Albumin/Globulin Ratio (1.0-2.2) Urine Sodium mmol/L Nasal Influenza B PCR Nasal Influenza A PCR Nasal RSV (PCR) Nasal SARS-CoV-2 (PCR) ABX Reporting Has patient been on IV antibiotics over the past 48 hours?: Yes Sepsis Event Note (H) - Evaluation Current Stage of Sepsis: Ruled out Assessment/Plan - Problem List (1) Hyponatremia Impression: Likely due to initiation of thiazide diuretic. This has been held. Sodium level dropp to 117 yesterday and has increased to 123 today. I will start her on salt tablets and continue to monitor her sodium. At this point, her hyponatremia is likely due to HCTZ which has been discontinued. If her sodium remains low and does not respond to salt tablet, consideration of additional causes of hyponatremia, including mineralocorticoid deficiency, should be explored. (2) Acute on chronic diastolic (congestive) heart failure Impression: Diastolic HF based with ECHO normal EF of 55%-60%, right ventricular enlargement and elevated RVSP at rest of 76 mmHg, with moderate triscupid regurgitation. While diastolic function was indeterminate, the other findings on the ECHO suggest diastolic dysfunction. The patient had recently been taken off of her Lasix in the outpatient setting and started on losartan and HCTZ. She presented in decompensated HF to the ED with 7 lb weight gain in 1 day and bilateral LE edema. 12-lead yesterday showed apparent bigeminal rhythm with tele monitoring strips having paced beats with underlying a-fib and some ectopy. Her pedal edema has resolved and she is now stable on RA without respiratory distress, O2 sats in the low 90's. I will switch her to PO lasix and plan to discharge her on lasix 40 mg PO QD (3) Acute hypoxemic respiratory failure Impression: Secondary to decompensated heart failure. Resolved. She is off oxygen and her oxygen saturations remain in the low 90s on room air. (4) Non-ischemic myocardial injury (non-traumatic) Impression: The patient's troponin was elevated but remained stable, with her last tropinin 24.9 when trending was stopped. Her low mildy elevated troponin in the setting of HF and respiratory failure suggest demand ischemia and not myocardial infarction. The patient is actively following with cardiology and has an appointment in about 2 weeks. No further workup is needed. Her demand ischemia will be addressed by managing the HF. (5) Permanent atrial fibrillation Impression: Currently rate controlled. She will remain on telemetry. Her Cardizem was recently held by her track fitter. Simply continue to monitor for now. She is on Eliquis for anticoagulation (6) Hypertension Impression: Her Cardizem was recently stopped by her track fitter. Continue losartan 25 mg daily. Her hydrochlorothiazide has been stopped and she will be discharged on lasox 40 mg PO QD. Her BP has been stable today. (7) DM2 (diabetes mellitus, type 2) Impression: Continue sliding scale coverage. The patient takes metformin at home which has been held. (8) Obstructive sleep apnea on CPAP Impression: Her CPAP was not ordered on admission. CPAP ordered for use at night during admission. (9) Glaucoma Impression: Continue eyedrops (10) HLD (hyperlipidemia) Impression: Continue atorvastatin 20 mg daily
[2024-04-07] MEDS: INSULIN LISPRO 300 UNIT/3 ML PEN SUBQ SCH (11:27)
[2024-04-07] MEDS: SODIUM CHLORIDE 1 GM TABLET PO SCH (11:27)
[2024-04-08 05:38] LABS: BASOPHILS % (AUTO) 0.4 %; EOSINOPHILS # (AUTO) 0.1 10^3/uL (0.0-0.7); EOSINOPHILS % (AUTO) 1.2 %; HCT - HEMATOCRIT 30.7 % (37.0-47.0); HGB - HEMOGLOBIN 10.4 g/dL (12.0-16.0); LYMPHOCYTES # (AUTO) 1.2 10^3/uL (1.5-3.5); LYMPHOCYTES % (AUTO) 14.6 %; MEAN CORPUSCULAR HEMOGLOBIN 32.3 pg (27.0-31.0); MEAN CORPUSCULAR HGB CONC 33.9 g/dL (32.0-36.0); MEAN CORPUSCULAR VOLUME 95.3 fL (81.0-99.0); MEAN PLATELET VOLUME 9.1 fL (7.9-10.8); MONOCYTES % (AUTO) 11.3 %; NEUTROPHILS # (AUTO) 6.1 10^3/uL (1.5-6.6); PLT - PLATELET COUNT 250 10^3/uL (130-450); RED BLOOD COUNT 3.22 10^6/uL (4.20-5.40); WHITE BLOOD COUNT 8.4 x10^3/uL (4.8-10.8)
[2024-04-08 05:47] LABS: ALBUMIN 3.3 g/dL (3.2-5.5); CALCIUM 8.1 mg/dL (8.5-10.3); CREATININE 0.5 mg/dL (0.6-1.3); MAGNESIUM 1.8 mg/dL (1.7-2.3); PHOSPHORUS 3.3 mg/dL (2.5-5.0); POTASSIUM 3.6 mmol/L (3.5-4.5)
[2024-04-08] MEDS: FUROSEMIDE 40 MG TABLET PO SCH (08:56)
[2024-04-08] MEDS: SODIUM CHLORIDE 1 GM TABLET PO ONE (09:16)
--- NOTE | 2024-04-08 11:28 | PROVIDER PROGRESS NOTE ---
Subjective - Prog Note Date Prog Note Date: 04/08/24 Prog Note Time: 11:25 - Subjective Pt reports feeling: Improved Subjective: The patient is improved from a heart failure standpoint. She has been weaned off of oxygen and currently appears to be euvolemic. However her sodium level remains low. It is improving but still below 130. Case was discussed with Dr. Priest who recommends not discharging her until her sodium level is 130. When I saw the patient today she denies fever or chills. No chest pain, shortness of breath or cough. No nausea vomiting or diarrhea. No urinary complaints. She has been seen by physical therapy and has no needs at home. Current Medications - Current Medications Current Medications: Active Medications Generic Name Dose Route Start Last Admin Trade Name Freq PRN Reason Stop Dose Admin Acetaminophen 650 mg 04/06/24 02:39 04/06/24 05:08 Acetaminophen 325 Mg Tablet PO 650 mg Q4HR PRN Administration Pain 1 to 4, or Fever Albuterol/Ipratropium 3 ml 04/06/24 07:43 Ipratropium/Albuterol 3 Ml Neb INH Q6HR PRN Wheezing Amoxicillin/Clavulanate Potassium 1 tab 04/06/24 03:11 04/08/24 08:56 Amox/Clav 875 Mg/125 Mg Tablet PO 1 tab BID SAADIA Administration Apixaban 2.5 mg 04/06/24 09:00 04/08/24 08:57 Apixaban 2.5 Mg Tablet PO 2.5 mg BID SAADIA Administration Atorvastatin Calcium 20 mg 04/06/24 09:00 04/08/24 08:56 Atorvastatin 10 Mg Tablet PO 20 mg DAILY SAADIA Administration Furosemide 40 mg 04/06/24 09:00 04/08/24 09:07 Furosemide 40 Mg/4 Ml Vial IVP Not Given BID SAADIA Furosemide 40 mg 04/08/24 09:00 04/08/24 08:56 Furosemide 40 Mg Tablet PO 40 mg DAILY SAADIA Administration Hydralazine HCl 10 mg 04/06/24 03:02 04/06/24 04:42 Hydralazine Inj 20 Mg/Ml Vial IVP 10 mg Q6HR PRN Administration sbp>160 Insulin Human Lispro 1 - 5 unit 04/07/24 12:00 04/08/24 08:08 Insulin Lispro 300 Unit/3 Ml Pen SUBQ Not Given 0800,1200,1700,2100 [facility] Protocol Loratadine 10 mg 04/06/24 09:00 04/08/24 08:56 Loratadine 10 Mg Tablet PO 10 mg DAILY [facility] Administration Losartan Potassium 25 mg 04/06/24 09:00 04/08/24 08:56 Losartan 50 Mg Tablet PO 25 mg DAILY SAADIA Administration Ondansetron HCl 4 mg 04/06/24 02:39 04/06/24 22:36 Ondansetron 4 Mg/2 Ml Vial IVP 4 mg Q6HR PRN Administration Nausea / Vomiting Sodium Chloride 10 ml 04/06/24 02:39 Sodium Chloride Flush 0.9% 10 Ml Syringe IVP PRN PRN NEEDED PER PROVIDER ORDERS Sodium Chloride 10 ml 04/06/24 09:00 04/08/24 09:00 Sodium Chloride Flush 0.9% 10 Ml Syringe IVP 10 ml 0100,0900,1700 [facility] Administration Sodium Chloride 2 sprays 04/06/24 03:11 Sodium Chloride 0.65% Nasal [place] TISH Q4HR PRN Nasal Congestion Sodium Chloride 1 gm 04/08/24 14:00 Sodium Chloride 1 Gm Tablet PO TID [facility] Alendronate [Fosamax] 70 mg PO OAW 01/16/23 metFORMIN [Glucophage] 500 mg PO BID 01/16/23 Acetaminophen [Acetaminophen Extra Strength] 500 mg PO BID 11/05/23 Apixaban [Eliquis] 2.5 mg PO BID 11/05/23 Carboxymethylcellulose 1% Opht [Refresh 1% Ophth Drops] 1 drops EACHEYE BID PRN 11/05/23 Estradiol [Vagifem] 10 mg VG UD 11/05/23 Atorvastatin [Lipitor] 20 mg PO DAILY 04/06/24 Calcium Carbonate/Vitamin D3 [Calcium 600 mg-Vit D3 10Mcg Tb] 1 each PO DAILY 04/06/24 Fluticasone Propionate 50 mcg IH BID 04/06/24 Metronidazole 1% Gel [Metrogel] 60 gm TP QPM 04/06/24 Objective - Vital Signs/Intake & Output Reviewed Vital Signs: Yes Vital Signs: Vital Signs x48h Temp Pulse Resp BP Pulse Ox 04/08/24 07:51 37 C 62 18 116/55 L 94 04/08/24 05:00 37.1 C 62 18 131/59 H 93 Intake & Output: Intake & Output 04/05/24 04/06/24 04/07/24 04/08/24 23:59 23:59 23:59 23:59 Intake Total 2160 1680 580 Output Total 1510 3950 1600 Balance 584 -5638 -4637 - Objective General Appearance: positive: No acute distress Eyes Bilateral: positive: Normal inspection ENT: positive: ENT inspection nml Neck: positive: Nml inspection Respiratory: positive: Chest non-tender, No respiratory distress, Breath sounds nml Cardiovascular: positive: No murmur, No gallop, Irregularly irregular (But rate controlled). negative: Friction rub Abdomen: positive: Non-tender, No organomegaly, Nml bowel sounds Skin: positive: Color nml, No rash, Warm Extremities: positive: Non-tender, Full ROM Neurologic/Psychiatric: positive: Oriented x3, CN's nml (2-12) - Lab Results Fish Bones: 04/08/24 05:20 04/08/24 10:55 Other Labs: Lab Results x24hrs 04/08/24 04/08/24 04/08/24 Range/Units 11:13 10:55 07:47 WBC (4.8-10.8) x10^3/uL RBC (4.20-5.40) 10^6/uL Hgb (12.0-16.0) g/dL Hct (37.0-47.0) % MCV (81.0-99.0) fL MCH (27.0-31.0) pg MCHC (32.0-36.0) g/dL RDW (12.0-15.0) % Plt Count (130-450) 10^3/uL MPV (7.9-10.8) fL Neut # (Auto) (1.5-6.6) 10^3/uL Lymph # (Auto) (1.5-3.5) 10^3/uL [place]mers # (Auto) (0.0-1.0) 10^3/uL Eos # (Auto) (0.0-0.7) 10^3/uL Baso # (Auto) (0.0-0.1) 10^3/uL Absolute Nucleated RBC x10^3/uL Nucleated RBC % /100WBC Sodium 127 L (135-145) mmol/L Potassium (3.5-4.5) mmol/L Chloride (101-111) mmol/L Carbon Dioxide (21-32) mmol/L Anion Gap (6-13) BUN (6-20) mg/dL Creatinine (0.6-1.3) mg/dL Estimated GFR (MDRD) (>89) Glucose (74-104) mg/dL POC Whole Bld Glucose 198 H 113 H (70 - 100) mg/dL Serum Osmolality (280-301) mOsmol/kg Calcium (8.5-10.3) mg/dL Phosphorus (2.5-5.0) mg/dL Magnesium (1.7-2.3) mg/dL Albumin (3.2-5.5) g/dL Urine Osmolality (.) mOsmol/kg 04/08/24 04/08/24 04/08/24 Range/Units 07:36 05:20 05:20 WBC 8.4 (4.8-10.8) x10^3/uL RBC 3.22 L (4.20-5.40) 10^6/uL Hgb 10.4 L (12.0-16.0) g/dL Hct 30.7 L (37.0-47.0) % MCV 95.3 (81.0-99.0) fL MCH 32.3 H (27.0-31.0) pg MCHC 33.9 (32.0-36.0) g/dL RDW 14.0 (12.0-15.0) % Plt Count 250 (130-450) 10^3/uL MPV 9.1 (7.9-10.8) fL Neut # (Auto) 6.1 (1.5-6.6) 10^3/uL Lymph # (Auto) 1.2 L (1.5-3.5) 10^3/uL [place] # (Auto) 1.0 (0.0-1.0) 10^3/uL Eos # (Auto) 0.1 (0.0-0.7) 10^3/uL Baso # (Auto) 0.0 (0.0-0.1) 10^3/uL Absolute Nucleated RBC 0.00 x10^3/uL Nucleated RBC % 0.0 /100WBC Sodium 127 L 129 L (135-145) mmol/L Potassium 3.6 (3.5-4.5) mmol/L Chloride 91 L (101-111) mmol/L Carbon Dioxide 34 H (21-32) mmol/L Anion Gap 4.0 L (6-13) BUN 20 (6-20) mg/dL Creatinine 0.5 L (0.6-1.3) mg/dL Estimated GFR (MDRD) 117 (>89) Glucose 112 H (74-104) mg/dL POC Whole Bld Glucose (70 - 100) mg/dL Serum Osmolality (280-301) mOsmol/kg Calcium 8.1 L (8.5-10.3) mg/dL Phosphorus 3.3 (2.5-5.0) mg/dL Magnesium 1.8 (1.7-2.3) mg/dL Albumin 3.3 (3.2-5.5) g/dL Urine Osmolality (.) mOsmol/kg 04/07/24 04/07/24 04/07/24 Range/Units 21:45 16:48 15:01 WBC (4.8-10.8) x10^3/uL RBC (4.20-5.40) 10^6/uL Hgb (12.0-16.0) g/dL Hct (37.0-47.0) % MCV (81.0-99.0) fL MCH (27.0-31.0) pg MCHC (32.0-36.0) g/dL RDW (12.0-15.0) % Plt Count (130-450) 10^3/uL MPV (7.9-10.8) fL Neut # (Auto) (1.5-6.6) 10^3/uL Lymph # (Auto) (1.5-3.5) 10^3/uL [place]mers # (Auto) (0.0-1.0) 10^3/uL Eos # (Auto) (0.0-0.7) 10^3/uL Baso # (Auto) (0.0-0.1) 10^3/uL Absolute Nucleated RBC x10^3/uL Nucleated RBC % /100WBC Sodium 126 L 126 L (135-145) mmol/L Potassium (3.5-4.5) mmol/L Chloride (101-111) mmol/L Carbon Dioxide (21-32) mmol/L Anion Gap (6-13) BUN (6-20) mg/dL Creatinine (0.6-1.3) mg/dL Estimated GFR (MDRD) (>89) Glucose (74-104) mg/dL POC Whole Bld Glucose 114 H (70 - 100) mg/dL Serum Osmolality (280-301) mOsmol/kg Calcium (8.5-10.3) mg/dL Phosphorus (2.5-5.0) mg/dL Magnesium (1.7-2.3) mg/dL Albumin (3.2-5.5) g/dL Urine Osmolality (.) mOsmol/kg 04/06/24 04/06/24 Range/Units 08:00 04:55 WBC (4.8-10.8) x10^3/uL RBC (4.20-5.40) 10^6/uL Hgb (12.0-16.0) g/dL Hct (37.0-47.0) % MCV (81.0-99.0) fL MCH (27.0-31.0) pg MCHC (32.0-36.0) g/dL RDW (12.0-15.0) % Plt Count (130-450) 10^3/uL MPV (7.9-10.8) fL Neut # (Auto) (1.5-6.6) 10^3/uL Lymph # (Auto) (1.5-3.5) 10^3/uL [place] # (Auto) (0.0-1.0) 10^3/uL Eos # (Auto) (0.0-0.7) 10^3/uL Baso # (Auto) (0.0-0.1) 10^3/uL Absolute Nucleated RBC x10^3/uL Nucleated RBC % /100WBC Sodium (135-145) mmol/L Potassium (3.5-4.5) mmol/L Chloride (101-111) mmol/L Carbon Dioxide (21-32) mmol/L Anion Gap (6-13) BUN (6-20) mg/dL Creatinine (0.6-1.3) mg/dL Estimated GFR (MDRD) (>89) Glucose (74-104) mg/dL POC Whole Bld Glucose (70 - 100) mg/dL Serum Osmolality 264 L (280-301) mOsmol/kg Calcium (8.5-10.3) mg/dL Phosphorus (2.5-5.0) mg/dL Magnesium (1.7-2.3) mg/dL Albumin (3.2-5.5) g/dL Urine Osmolality 272 (.) mOsmol/kg ABX Reporting Has patient been on IV antibiotics over the past 48 hours?: No Sepsis Event Note (H) - Evaluation Current Stage of Sepsis: Ruled out Assessment/Plan - Problem List (1) Acute hypoxemic respiratory failure Impression: Secondary to decompensated heart failure. Resolved (2) Acute on chronic diastolic (congestive) heart failure Impression: She was initially diuresed with IV Lasix. She has been changed back to her previous home dose of Lasix and currently appears to be euvolemic (3) Non-ischemic myocardial injury (non-traumatic) Impression: Troponins were elevated but flat. Likely nonischemic in nature. No chest pain. No wall motion abnormalities noted on echocardiogram (4) Permanent atrial fibrillation Impression: Currently rate controlled. (5) Obstructive sleep apnea on CPAP Impression: Continue CPAP at night (6) DM2 (diabetes mellitus, type 2) Impression: Continue sliding scale coverage (7) Hyponatremia Impression: Improving but still not at 130. Continue sodium chloride tablets. Will increase the dosing today. (9) Hypertension Impression: Continue statin medication (10) Glaucoma Impression: Continue eyedrops Disposition: Inpatient hospitalization remains necessary. The patient had rather significant hyponatremia at the time of admission. It is improving and hopefully she will be stable for discharge by tomorrow morning. Time spent: 35 minutes
[2024-04-08] MEDS: SODIUM CHLORIDE 1 GM TABLET PO SCH (15:01)
[2024-04-09 05:37] LABS: BASOPHILS # (AUTO) 0.1 10^3/uL (0.0-0.1); BASOPHILS % (AUTO) 0.6 %; EOSINOPHILS # (AUTO) 0.1 10^3/uL (0.0-0.7); EOSINOPHILS % (AUTO) 1.1 %; HCT - HEMATOCRIT 31.5 % (37.0-47.0); HGB - HEMOGLOBIN 10.2 g/dL (12.0-16.0); LYMPHOCYTES # (AUTO) 1.3 10^3/uL (1.5-3.5); LYMPHOCYTES % (AUTO) 14.7 %; MEAN CORPUSCULAR HEMOGLOBIN 31.3 pg (27.0-31.0); MEAN CORPUSCULAR HGB CONC 32.4 g/dL (32.0-36.0); MEAN CORPUSCULAR VOLUME 96.6 fL (81.0-99.0); MEAN PLATELET VOLUME 8.7 fL (7.9-10.8); MONOCYTES # (AUTO) 1.1 10^3/uL (0.0-1.0); MONOCYTES % (AUTO) 12.7 %; NEUTROPHILS # (AUTO) 6.4 10^3/uL (1.5-6.6); NEUTROPHILS % (AUTO) 70.5 %; PLT - PLATELET COUNT 248 10^3/uL (130-450); RED BLOOD COUNT 3.26 10^6/uL (4.20-5.40); RED CELL DISTRIBUTION WIDTH 14.1 % (12.0-15.0)
[2024-04-09 05:55] LABS: ALBUMIN 3.4 g/dL (3.2-5.5); CALCIUM 8.5 mg/dL (8.5-10.3); CREATININE 0.6 mg/dL (0.6-1.3); MAGNESIUM 1.8 mg/dL (1.7-2.3); PHOSPHORUS 3.4 mg/dL (2.5-5.0); POTASSIUM 4.1 mmol/L (3.5-4.5)
[2024-04-09] MEDS: SODIUM CHLORIDE 1 GM TABLET PO SCH (08:00)
--- NOTE | 2024-04-09 10:27 | PROVIDER PROGRESS NOTE ---
Subjective - Prog Note Date Prog Note Date: 04/09/24 Prog Note Time: 10:30 - Subjective Pt reports feeling: Improved Subjective: The patient is feeling well. Her breathing is back to its baseline. Unfortunately her sodium level is still low. Sodium chloride tablets were increased today and a repeat sodium level still remains at 128. She denies fever or chills. No chest pain, shortness of breath or cough. No nausea vomiting or diarrhea. No urinary complaints Current Medications - Current Medications Current Medications: Active Medications Generic Name Dose Route Start Last Admin Trade Name Freq PRN Reason Stop Dose Admin Acetaminophen 650 mg 04/06/24 02:39 04/06/24 05:08 Acetaminophen 325 Mg Tablet PO 650 mg Q4HR PRN Administration Pain 1 to 4, or Fever Albuterol/Ipratropium 3 ml 04/06/24 07:43 Ipratropium/Albuterol 3 Ml Neb INH Q6HR PRN Wheezing Amoxicillin/Clavulanate Potassium 1 tab 04/09/24 11:00 Amox/Clav 875 Mg/125 Mg Tablet PO BID SAADIA Apixaban 2.5 mg 04/06/24 09:00 04/09/24 08:01 Apixaban 2.5 Mg Tablet PO 2.5 mg BID SAADIA Administration Atorvastatin Calcium 20 mg 04/06/24 09:00 04/09/24 08:01 Atorvastatin 10 Mg Tablet PO 20 mg DAILY SAADIA Administration Furosemide 40 mg 04/08/24 09:00 04/09/24 08:01 Furosemide 40 Mg Tablet PO 40 mg DAILY SAADIA Administration Hydralazine HCl 10 mg 04/06/24 03:02 04/06/24 04:42 Hydralazine Inj 20 Mg/Ml Vial IVP 10 mg Q6HR PRN Administration sbp>160 Insulin Human Lispro 1 - 5 unit 04/07/24 12:00 04/09/24 08:04 Insulin Lispro 300 Unit/3 Ml Pen SUBQ Not Given 0800,1200,1700,2100 [facility] Protocol Loratadine 10 mg 04/06/24 09:00 04/09/24 08:00 Loratadine 10 Mg Tablet PO 10 mg DAILY SAADIA Administration Losartan Potassium 25 mg 04/06/24 09:00 04/09/24 08:00 Losartan 50 Mg Tablet PO 25 mg DAILY SAADIA Administration Ondansetron HCl 4 mg 04/06/24 02:39 04/06/24 22:36 Ondansetron 4 Mg/2 Ml Vial IVP 4 mg Q6HR PRN Administration Nausea / Vomiting Sodium Chloride 10 ml 04/06/24 02:39 Sodium Chloride Flush 0.9% 10 Ml Syringe IVP PRN PRN NEEDED PER PROVIDER ORDERS Sodium Chloride 10 ml 04/06/24 09:00 04/09/24 08:03 Sodium Chloride Flush 0.9% 10 Ml Syringe IVP 10 ml 0100,0900,1700 [facility]ADIA Administration Sodium Chloride 2 sprays 04/06/24 03:11 Sodium Chloride 0.65% Nasal [place] TISH Q4HR PRN Nasal Congestion Sodium Chloride 3 gm 04/09/24 08:00 04/09/24 08:00 Sodium Chloride 1 Gm Tablet PO 3 gm TID SAADIA Administration Alendronate [Fosamax] 70 mg PO OAW 01/16/23 metFORMIN [Glucophage] 500 mg PO BID 01/16/23 Acetaminophen [Acetaminophen Extra Strength] 500 mg PO BID 11/05/23 Apixaban [Eliquis] 2.5 mg PO BID 11/05/23 Carboxymethylcellulose 1% Opht [Refresh 1% Ophth Drops] 1 drops EACHEYE BID PRN 11/05/23 Estradiol [Vagifem] 10 mg VG UD 11/05/23 Atorvastatin [Lipitor] 20 mg PO DAILY 04/06/24 Calcium Carbonate/Vitamin D3 [Calcium 600 mg-Vit D3 10Mcg Tb] 1 each PO DAILY 04/06/24 Fluticasone Propionate 50 mcg IH BID 04/06/24 Metronidazole 1% Gel [Metrogel] 60 gm TP QPM 04/06/24 Objective - Vital Signs/Intake & Output Reviewed Vital Signs: Yes Vital Signs: Vital Signs x48h Temp Pulse Pulse Resp BP Pulse Ox 04/09/24 06:23 153/60 H 04/09/24 06:20 36.4 C L 62 16 168/68 H 95 04/09/24 03:45 36.6 C 63 63 16 166/73 H 93 Intake & Output: Intake & Output 04/06/24 04/07/24 04/08/24 04/09/24 23:59 23:59 23:59 23:59 Intake Total 2160 1680 1870 340 Output Total 1510 3950 2675 500 Balance 051 -5353 -805 -160 - Objective General Appearance: positive: No acute distress, Alert Eyes Bilateral: positive: Normal inspection ENT: positive: ENT inspection nml Neck: positive: Nml inspection Respiratory: positive: Chest non-tender, No respiratory distress, Breath sounds nml Cardiovascular: positive: No murmur, No gallop, Irregularly irregular. negative: Friction rub Abdomen: positive: Non-tender, No organomegaly, Nml bowel sounds Skin: positive: Color nml, No rash, Warm Extremities: positive: Non-tender, Full ROM Neurologic/Psychiatric: positive: Oriented x3, CN's nml (2-12) - Lab Results Fish Bones: 04/09/24 05:08 04/09/24 09:54 Other Labs: Lab Results x24hrs 04/09/24 04/09/24 04/09/24 Range/Units 09:54 07:48 05:08 WBC (4.8-10.8) x10^3/uL RBC (4.20-5.40) 10^6/uL Hgb (12.0-16.0) g/dL Hct (37.0-47.0) % MCV (81.0-99.0) fL MCH (27.0-31.0) pg MCHC (32.0-36.0) g/dL RDW (12.0-15.0) % Plt Count (130-450) 10^3/uL MPV (7.9-10.8) fL Neut # (Auto) (1.5-6.6) 10^3/uL Lymph # (Auto) (1.5-3.5) 10^3/uL [place] # (Auto) (0.0-1.0) 10^3/uL Eos # (Auto) (0.0-0.7) 10^3/uL Baso # (Auto) (0.0-0.1) 10^3/uL Absolute Nucleated RBC x10^3/uL Nucleated RBC % /100WBC Sodium 128 L 128 L (135-145) mmol/L Potassium 4.1 (3.5-4.5) mmol/L Chloride 91 L (101-111) mmol/L Carbon Dioxide 34 H (21-32) mmol/L Anion Gap 3.0 L (6-13) BUN 18 (6-20) mg/dL Creatinine 0.6 (0.6-1.3) mg/dL Estimated GFR (MDRD) 95 (>89) Glucose 131 H (74-104) mg/dL POC Whole Bld Glucose 119 H (70 - 100) mg/dL Calcium 8.5 (8.5-10.3) mg/dL Phosphorus 3.4 (2.5-5.0) mg/dL Magnesium 1.8 (1.7-2.3) mg/dL Albumin 3.4 (3.2-5.5) g/dL 04/09/24 04/08/24 04/08/24 Range/Units 05:08 20:44 16:43 WBC 9.0 (4.8-10.8) x10^3/uL RBC 3.26 L (4.20-5.40) 10^6/uL Hgb 10.2 L (12.0-16.0) g/dL Hct 31.5 L (37.0-47.0) % MCV 96.6 (81.0-99.0) fL MCH 31.3 H (27.0-31.0) pg MCHC 32.4 (32.0-36.0) g/dL RDW 14.1 (12.0-15.0) % Plt Count 248 (130-450) 10^3/uL MPV 8.7 (7.9-10.8) fL Neut # (Auto) 6.4 (1.5-6.6) 10^3/uL Lymph # (Auto) 1.3 L (1.5-3.5) 10^3/uL [place] # (Auto) 1.1 H (0.0-1.0) 10^3/uL Eos # (Auto) 0.1 (0.0-0.7) 10^3/uL Baso # (Auto) 0.1 (0.0-0.1) 10^3/uL Absolute Nucleated RBC 0.00 x10^3/uL Nucleated RBC % 0.0 /100WBC Sodium 129 L (135-145) mmol/L Potassium (3.5-4.5) mmol/L Chloride (101-111) mmol/L Carbon Dioxide (21-32) mmol/L Anion Gap (6-13) BUN (6-20) mg/dL Creatinine (0.6-1.3) mg/dL Estimated GFR (MDRD) (>89) Glucose (74-104) mg/dL POC Whole Bld Glucose 200 H (70 - 100) mg/dL Calcium (8.5-10.3) mg/dL Phosphorus (2.5-5.0) mg/dL Magnesium (1.7-2.3) mg/dL Albumin (3.2-5.5) g/dL 04/08/24 04/08/24 04/08/24 Range/Units 16:10 11:13 10:55 WBC (4.8-10.8) x10^3/uL RBC (4.20-5.40) 10^6/uL Hgb (12.0-16.0) g/dL Hct (37.0-47.0) % MCV (81.0-99.0) fL MCH (27.0-31.0) pg MCHC (32.0-36.0) g/dL RDW (12.0-15.0) % Plt Count (130-450) 10^3/uL MPV (7.9-10.8) fL Neut # (Auto) (1.5-6.6) 10^3/uL Lymph # (Auto) (1.5-3.5) 10^3/uL [place] # (Auto) (0.0-1.0) 10^3/uL Eos # (Auto) (0.0-0.7) 10^3/uL Baso # (Auto) (0.0-0.1) 10^3/uL Absolute Nucleated RBC x10^3/uL Nucleated RBC % /100WBC Sodium 127 L (135-145) mmol/L Potassium (3.5-4.5) mmol/L Chloride (101-111) mmol/L Carbon Dioxide (21-32) mmol/L Anion Gap (6-13) BUN (6-20) mg/dL Creatinine (0.6-1.3) mg/dL Estimated GFR (MDRD) (>89) Glucose (74-104) mg/dL POC Whole Bld Glucose 96 198 H (70 - 100) mg/dL Calcium (8.5-10.3) mg/dL Phosphorus (2.5-5.0) mg/dL Magnesium (1.7-2.3) mg/dL Albumin (3.2-5.5) g/dL ABX Reporting Has patient been on IV antibiotics over the past 48 hours?: No Sepsis Event Note (H) - Evaluation Current Stage of Sepsis: Ruled out Assessment/Plan - Problem List (2) Acute on chronic diastolic (congestive) heart failure Impression: Her IV Lasix has been stopped. Continue 40 mg of p.o. Lasix daily (3) Non-ischemic myocardial injury (non-traumatic) Impression: Nonischemic in nature. Her troponins were elevated but flat. Echocardiogram did not reveal any wall motion abnormalities. No further workup at this point. Her troponin elevation was due to her heart failure and respiratory failure present at the time of admission (4) Permanent atrial fibrillation Impression: Currently rate controlled (5) Obstructive sleep apnea on CPAP Impression: Continue CPAP at night (6) DM2 (diabetes mellitus, type 2) Impression: Continue sliding scale coverage (7) Hyponatremia Impression: Persistent hyponatremia. Continue sodium chloride tablets. I have increased the dose to 3 g 3 times daily today. Repeat sodium level today remains below 130. Per my attending physician the level should be above 130 to discharge (8) HLD (hyperlipidemia) Impression: Continue atorvastatin 20 mg daily (9) Hypertension Impression: Stable on current regimen (10) Glaucoma Impression: Continue eyedrops Disposition: Inpatient hospitalization remains necessary. The patient has persistent hyponatremia. We are aggressively treating today and him hopeful she can be discharged in the morning Time spent: 35 minutes
[2024-04-09] MEDS: AMOX/CLAV 875 MG/125 MG TABLET PO SCH (10:28)
[2024-04-09 20:05] VITALS: O2SAT 94
[2024-04-10 06:38] LABS: BASOPHILS # (AUTO) 0.1 10^3/uL (0.0-0.1); BASOPHILS % (AUTO) 0.7 %; EOSINOPHILS # (AUTO) 0.1 10^3/uL (0.0-0.7); EOSINOPHILS % (AUTO) 1.7 %; HCT - HEMATOCRIT 32.2 % (37.0-47.0); HGB - HEMOGLOBIN 10.2 g/dL (12.0-16.0); LYMPHOCYTES # (AUTO) 1.4 10^3/uL (1.5-3.5); MEAN CORPUSCULAR HGB CONC 31.7 g/dL (32.0-36.0); MEAN CORPUSCULAR VOLUME 97.9 fL (81.0-99.0); MEAN PLATELET VOLUME 8.8 fL (7.9-10.8); MONOCYTES # (AUTO) 0.8 10^3/uL (0.0-1.0); MONOCYTES % (AUTO) 10.7 %; NEUTROPHILS # (AUTO) 4.8 10^3/uL (1.5-6.6); NEUTROPHILS % (AUTO) 66.6 %; PLT - PLATELET COUNT 260 10^3/uL (130-450); RED BLOOD COUNT 3.29 10^6/uL (4.20-5.40); RED CELL DISTRIBUTION WIDTH 14.2 % (12.0-15.0); WHITE BLOOD COUNT 7.2 x10^3/uL (4.8-10.8)
[2024-04-10 06:46] LABS: ALBUMIN 3.2 g/dL (3.2-5.5); CALCIUM 8.2 mg/dL (8.5-10.3); CREATININE 0.4 mg/dL (0.6-1.3); MAGNESIUM 1.8 mg/dL (1.7-2.3); PHOSPHORUS 3.1 mg/dL (2.5-5.0); POTASSIUM 3.6 mmol/L (3.5-4.5)
[2024-04-10 07:47] VITALS: BP 176/68
--- NOTE | 2024-04-10 08:36 | Discharge Plan ---
Discharge Plan Problem Reviewed?: Yes Disposition: Home, Self Care Condition: Good Prescriptions: Losartan [Cozaar] 25 mg PO DAILY #15 tab Furosemide [Lasix] 40 mg PO DAILY #30 tab Sodium Chloride [Salt Tab] 2 gm PO BID #21 tab Diet: Regular Activity Restrictions: No Restrictions Shower Restrictions: No Driving Restrictions: No Health Concerns: You were admitted with low O2 saturations. This was because you had fluid that had built up in your lungs from being off of your lasix. You received IV lasix with great improvement. You are now stable and doing well from a heart standpoint. You should keep your appointment with you real estate sales associate in 3 weeks. I have held the hydroclorothiazide that was part of you combination BP medication. This contributed to your low sodium levels and should be avoided in the future. You also had issues with severely low sodium levels. It took several days for this to improve. I am going to send you out on sodium tablets for 1 week. You should follow up with your chef french next week and your sodium levels should be followed closely Assessment: 1. Acute hypoxic respiratory failure This was due to decompensated heart failure. The patient had recently been taken off her Lasix by her real estate sales associate. She was placed back on IV Lasix and her oxygen saturations stabilized. She is now stable on room air 2. Acute on chronic diastolic heart failure She was diuresed with IV Lasix. She was then transitioned back to 40 mg of p.o. Lasix daily and has remained euvolemic since that time 3. Nonischemic myocardial injury She had elevated troponins that are nonischemic in nature. Her troponins were slightly elevated but flat. Echocardiogram did not reveal any wall motion abnormalities. No further workup was pursued. She has a real estate sales associate as an outpatient. Her troponin elevation was likely due to her heart failure and respiratory failure present at the time of admission 4. Hyponatremia The patient had been placed on a losartan/hydrochlorothiazide combination medication. Her hydrochlorothiazide was held. Her sodium levels continued to drift down as low as 117. The patient was placed on sodium chloride tablets and over the course of several days her sodium level has improved and currently on the day of discharge is 133. This will need to be followed closely by her outpatient provider. Will send her out with a 1 week supply of sodium chloride tablets. Her sodium should be rechecked and her primary care physician should decide what to do going forward 5. Permanent atrial fibrillation No issues during this hospitalization. The patient has remained rate controlled 6. Obstructive sleep apnea Continue CPAP 7. Type 2 diabetes She should resume her home dose of metformin. She received sliding scale coverage during this hospitalization 8. Hyperlipidemia She should resume her home regimen with atorvastatin daily 9. Hypertension I have written her a prescription for losartan 25 mg daily No Smoking: If you smoke, Please STOP! Call for help. Follow-up with: BILL REIS MD [Physician No Access] -
--- NOTE | 2024-04-10 08:45 | DISCHARGE SUMMARY ---
Discharge Summary Admit Date: 04/06/24 Discharge Date: 04/10/24 Discharging Provider: Bailey Herrera PA-C Primary Care Provider: Dr Castle Code Status: Do Not Attempt Resuscitation Condition at Discharge: Good Discharge Disposition: 01 Home, Self Care - DIAGNOSES Admission Diagnoses: 1. Acute hypoxic respiratory failure This was due to decompensated heart failure. The patient had recently been taken off her Lasix by her foiling machine adjuster. She was placed back on IV Lasix and her oxygen saturations stabilized. She is now stable on room air 2. Acute on chronic diastolic heart failure She was diuresed with IV Lasix. She was then transitioned back to 40 mg of p.o. Lasix daily and has remained euvolemic since that time 3. Nonischemic myocardial injury She had elevated troponins that are nonischemic in nature. Her troponins were slightly elevated but flat. Echocardiogram did not reveal any wall motion abnormalities. No further workup was pursued. She has a foiling machine adjuster as an outpatient. Her troponin elevation was likely due to her heart failure and respiratory failure present at the time of admission 4. Hyponatremia The patient had been placed on a losartan/hydrochlorothiazide combination medication. Her hydrochlorothiazide was held. Her sodium levels continued to drift down as low as 117. The patient was placed on sodium chloride tablets and over the course of several days her sodium level has improved and currently on the day of discharge is 133. This will need to be followed closely by her outpatient provider. Will send her out with a 1 week supply of sodium chloride tablets. Her sodium should be rechecked and her primary care physician should decide what to do going forward 5. Permanent atrial fibrillation No issues during this hospitalization. The patient has remained rate controlled 6. Obstructive sleep apnea Continue CPAP 7. Type 2 diabetes She should resume her home dose of metformin. She received sliding scale coverage during this hospitalization 8. Hyperlipidemia She should resume her home regimen with atorvastatin daily 9. Hypertension I have written her a prescription for losartan 25 mg daily. Her HCTZ should be held due to significant hyponatremia - HPI History of Present Illness: From the admission HP: [id number] c CHF, arrhythmia s/p pacemaker, DM2, and atrial fibrillation on Eliquis who presents to the ED reporting SOB for the past week. Patient reportedly had a change in her medications after seeing her foiling machine adjuster. Per patient's office visit document, she was asked to stop Lasix and diltiazem. She was started on Losartan and HCTZ. Patient also had her pacemaker limit adjusted from HR 70s to 60s. Patient reports increase in weight, BLE swelling, and SOB especially with exertion since her cardiology visit and changing her home medications. She also reports sinus congestion. No chest pain. No palpitation. No n/v/d. In the ED however, patient's HR noted by RN to intermittent drop into the 30s. - HOSPITAL COURSE Hospital Course: The patient was admitted to the hospital. She was initially hypoxic and had evidence of decompensated heart failure. She was started on IV Lasix and she quickly improved. Apparently the patient had been on Lasix as an outpatient but this had been held recently resulting in volume overload. She also had recently been started on a losartan/hydrochlorothiazide combination medication. She was found to have rather significant hyponatremia with a sodium level of 121 at the time of admission. Her hydrochlorothiazide was stopped and her sodium continued to trend downwards as low as 117. The patient was placed on sodium chloride tablets and over the next several days began to improve. On the day of discharge her sodium is much improved at 133. She did have a 2D echocardiogram performed which revealed normal LV function with an ejection fraction of 55 to 60%. She also was noted to have mildly impaired right ventricular systolic func tion and moderate tricuspid regurgitation. She does have a foiling machine adjuster and has an upcoming appointment in the next 3 weeks. Her blood pressures have been stable on losartan 25 mg daily and I have written a prescription for this. I have also placed her back on Lasix 40 mg daily for now. I will send her off with a 1 week supply of sodium chloride tablets and she should call and get an appointment with her primary care provider who should follow her sodium levels closely in the outpatient setting. At this point maximum hospital benefit has been reached. The patient will be discharged today in stable condition. - ALLERGIES Allergies/Adverse Reactions: Allergies Allergy/AdvReac Type Severity Reaction Status Date / Time cefuroxime axetil * Allergy Cramps Verified 03/10/24 23:15 [From Ceftin] levofloxacin [From Levaquin] Allergy Hallucinati Verified 03/10/24 23:15 ons phenazopyridine Allergy Unknown Verified 03/10/24 23:15 [From Pyridium] - MEDICATIONS Home Medications: Ambulatory Orders Medication Instructions Recorded Confirmed Alendronate [Fosamax] 70 mg PO OAW 01/16/23 04/06/24 metFORMIN [Glucophage] 500 mg PO BID 01/16/23 04/06/24 Acetaminophen [Acetaminophen Extra 500 mg PO BID 11/05/23 04/06/24 Strength] Apixaban [Eliquis] 2.5 mg PO BID 11/05/23 04/06/24 Carboxymethylcellulose 1% Opht 1 drops EACHEYE BID PRN 11/05/23 04/06/24 [Refresh 1% Ophth Drops] Estradiol [Vagifem] 10 mg VG UD 11/05/23 04/06/24 Atorvastatin [Lipitor] 20 mg PO DAILY 04/06/24 04/06/24 Calcium Carbonate/Vitamin D3 1 each PO DAILY 04/06/24 04/06/24 [Calcium 600 mg-Vit D3 10Mcg Tb] Fluticasone Propionate 50 mcg IH BID 04/06/24 04/06/24 Metronidazole 1% Gel [Metrogel] 60 gm TP QPM 04/06/24 04/06/24 Furosemide [Lasix] 40 mg PO DAILY #30 tab 04/10/24 Losartan [Cozaar] 25 mg PO DAILY #15 tab 04/10/24 Sodium Chloride [Salt Tab] 2 gm PO BID #21 tab 04/10/24 - PHYSICAL EXAM AT DISCHARGE General Appearance: positive: No acute distress Eyes Bilateral: positive: Normal inspection ENT: positive: ENT inspection nml Neck: positive: Nml inspection Respiratory: positive: Chest non-tender, No respiratory distress, Breath sounds nml Cardiovascular: positive: Regular rate & rhythm, No murmur, No gallop. negative: Friction rub Abdomen: positive: Non-tender, No organomegaly, Nml bowel sounds Skin: positive: Color nml, No rash, Warm, Dry Extremities: positive: Non-tender, Full ROM, No pedal edema Neurologic/Psychiatric: positive: Oriented x3, CN's nml (2-12) - LABS Result Diagrams: 04/10/24 06:02 04/10/24 06:02 - SEPSIS Current Stage of Sepsis: Ruled out - FOLLOW UP Follow Up: The patient should follow-up with her primary care physician Dr. Castle next week. She should keep her appointment that is already scheduled in 3 weeks with her foiling machine adjuster. - TIME SPENT Time Spent in Discharge (Minutes): 45
== END 2024-04-10 11:48 | disposition home or self-care (01) | DRG 189 ==
LOC: EDUNIT# → ED 00:32 → MS2 03:18
PROVIDERS: ADMIT Internal Medicine; ATTEND Physician Assistant
DX: I50.9 Heart failure, unspecified (principal); J96.01 Acute respiratory failure with hypoxia; R09.02 Hypoxemia; I50.33 Acute on chronic diastolic (congestive) heart failure; I48.91 Unspecified atrial fibrillation; I5A Non-ischemic myocardial injury (non-traumatic); E87.1 Hypo-osmolality and hyponatremia; I48.21 Permanent atrial fibrillation; I11.0 Hypertensive heart disease with heart failure; R79.89 Other specified abnormal findings of blood chemistry; Z79.01 Long term (current) use of anticoagulants; G47.33 Obstructive sleep apnea (adult) (pediatric); E11.9 Type 2 diabetes mellitus without complications; Z79.84 Long term (current) use of oral hypoglycemic drugs; E78.5 Hyperlipidemia, unspecified; Z95.0 Presence of cardiac pacemaker; H40.9 Unspecified glaucoma
CPT/HCPCS: 36415; 71045; 80048; 80053; 80069; 83690; 83735; 83880; 83930; 83935; 84145; 84295; 84300; 84443; 84484; 85025; 87637; 93005; 93307; 96374; 97161; 97165; 99285; A9270; 85027

== ENCOUNTER 2024-04-12 22:06 | Outpatient (CLI) | payer MEDICARE | END 2024-04-12 22:07 | disposition critical access hospital (66) | LOC: EMS 22:06 | DX: R60.0 Localized edema (principal); R63.5 Abnormal weight gain | CPT/HCPCS: A0425; A0429 ==

== ENCOUNTER 2024-04-12 22:43 | Emergency (ER) | payer MEDICARE ==
--- NOTE | 2024-04-12 23:16 | ED Physician Documentation ---
History of Present Illness - Stated complaint Stated Complaint: BL LEG SWELLING - Chief complaint Chief Complaint: Ext Problem - History obtained from History obtained from: Patient - Additonal information Additional information: BIBA. HPI from patient. Patient complains of bilateral lower extremity swelling. This is an ongoing problem for her and was one of the problems noted on her admission to [facility] last week (04/06/2024). Patient says the swelling has not improved since being discharged 04/10. She also notes steady weight gain of 6 pounds over past 2 days. She denies any pain including leg pain, chest pain. She denies shortness of breath, dyspnea on exertion. PD PAST MEDICAL HISTORY - Past Medical History Past Medical History: Yes Cardiovascular: Congestive heart failure, Atrial fibrillation, Other Neuro: None Endocrine/Autoimmune: Type 2 diabetes Musculoskeletal: None Derm: Other - Past Surgical History Past Surgical History: Yes /INFORMATICS DEVELOPER: Hysterectomy Cardiovascular: Other - Present Medications Home Medications: Ambulatory Orders Medication Instructions Recorded Confirmed Alendronate [Fosamax] 70 mg PO OAW 01/16/23 04/06/24 metFORMIN [Glucophage] 500 mg PO BID 01/16/23 04/06/24 Acetaminophen [Acetaminophen Extra 500 mg PO BID 11/05/23 04/06/24 Strength] Apixaban [Eliquis] 2.5 mg PO BID 11/05/23 04/06/24 Carboxymethylcellulose 1% Opht 1 drops EACHEYE BID PRN 11/05/23 04/06/24 [Refresh 1% Ophth Drops] Estradiol [Vagifem] 10 mg VG UD 11/05/23 04/06/24 Atorvastatin [Lipitor] 20 mg PO DAILY 04/06/24 04/06/24 Calcium Carbonate/Vitamin D3 1 each PO DAILY 04/06/24 04/06/24 [Calcium 600 mg-Vit D3 10Mcg Tb] Fluticasone Propionate 50 mcg IH BID 04/06/24 04/06/24 Metronidazole 1% Gel [Metrogel] 60 gm TP QPM 04/06/24 04/06/24 Furosemide [Lasix] 40 mg PO DAILY #30 tab 04/10/24 Losartan [Cozaar] 25 mg PO DAILY #15 tab 04/10/24 Sodium Chloride [Salt Tab] 2 gm PO BID #21 tab 04/10/24 Metoprolol Succinate [Toprol Xl] 25 mg PO BID #20 tablet 04/13/24 - Allergies Allergies/Adverse Reactions: Allergies Allergy/AdvReac Type Severity Reaction Status Date / Time cefuroxime axetil * Allergy Cramps Verified 04/12/24 22:48 [From Ceftin] levofloxacin [From Levaquin] Allergy Hallucinati Verified 04/12/24 22:48 ons phenazopyridine Allergy Unknown Verified 04/12/24 22:48 [From Pyridium] - Social History Does the pt smoke?: No Smoking Status: Never smoker Does the pt drink ETOH?: No Does the pt have substance abuse?: No - Immunizations Immunizations are current?: Yes - POLST Patient has POLST: No PD ED PE NORMAL - Vitals Vital signs reviewed: Yes - General General: Alert and oriented X 3, No acute distress, Well developed/nourished - Cardiac Cardiac: RRR (baseline regular rhythm with frequent extra beats), No murmur - Respiratory Respiratory: No respiratory distress, Clear bilaterally - Derm Derm: Normal color, Warm and dry PD ED PE EXPANDED - Extremities Extremities: Pedal edema bilateral (2+ symmetric BLE edema) Results - Vitals Vitals: Vital Signs - 24 hr 04/12/24 04/13/24 22:48 01:18 Temperature 36.5 C Heart Rate 78 74 Respiratory 16 20 Rate Blood Pressure 152/84 H 172/63 H O2 Saturation 96 98 Oxygen O2 Source Room air - EKG (time done) No standard instances EKG releavant findings:: EKG personally interpreted by author of this note. Relevant findings are: Rate: Rate (enter#) (77) Rhythm: Atrial fibrillation, Other (bigeminy) Intervals: LBBB QRS: LVH - Labs Labs: Laboratory Tests 04/12/24 04/12/24 04/12/24 23:19 23:19 23:19 WBC 8.4 RBC 3.10 L Hgb 9.6 L Hct 30.4 L MCV 98.1 MCH 31.0 MCHC 31.6 L RDW 14.1 Plt Count 285 MPV 8.5 Neut # (Auto) 6.0 Lymph # (Auto) 1.5 [place] # (Auto) 0.7 Eos # (Auto) 0.1 Baso # (Auto) 0.0 Absolute Nucleated RBC 0.00 Nucleated RBC % 0.0 Sodium 126 L Potassium 4.3 Chloride 92 L Carbon Dioxide 29 Anion Gap 5.0 L BUN 17 Creatinine 0.7 Estimated GFR (MDRD) 79 L Glucose 164 H Calcium 9.3 Total Bilirubin 0.5 AST 28 ALT 31 Alkaline Phosphatase 82 B-Natriuretic Peptide 558 H Total Protein 6.8 Albumin 3.9 Globulin 2.9 Albumin/Globulin Ratio 1.3 Lipase 21 PD Medical Decision Making - ED course Complexity details: reviewed results, re-evaluated patient, considered differential, d/w patient ED course: Blood tests notable for hyponatremia (126) and mild anemia (hemoglobin 9.6). When she was admitted 1 week ago, her sodium level was 121 and dropped as low as 117 during inpatient stay, discharged 2 days ago with sodium of 133. Bakari's sodium level does not necessitate inpatient treatment but will require close follow up with PCP. BNP mildly elevated at 558. Her lungs are clear to auscultation and she is in no respiratory distress. In reviewing the ED MD note from 1 week ago, note is made that ED MD discussed patient's case with Dr. Valverde (pizza chef on-call for patient's cardiology group), and they recommended starting patient on metoprolol XL 25 mg twice per day. Patient says she does not think she was started on this medication and I do not see any prescription fills for this medication. Thus, [facility] and I have provided patient with a 10- day course of metoprolol XL 25 mg twice daily. Test results reviewed with patient. She is given Lasix 40 mg p.o. in the ED, advised to continue her medications including her current Lasix dose and scheduling. I instructed her to contact her primary care provider as well as her pizza chef in the morning when their offices are open to arrange for next available appointment for follow-up/reevaluation. Return precautions are reviewed. Departure - Departure Disposition: 01 Home, Self Care Clinical Impression: Peripheral edema, Frequent PVCs Instructions: Premature Ventricular Contract About, Premature Ventricular Contract Tx, ED Edema Legs Bilateral Prescriptions: Metoprolol Succinate [Toprol Xl] 25 mg PO BID #20 tablet Comments: There were no particularly concerning findings on bakari's blood tests. As we discussed, your sodium level is once again below the normal range, but not as low as when you were admitted last week. Your red blood cell level is also below normal range, but not nearly low enough to cause symptoms nor need for further emergent testing/treatment. You should mention both of these findings to your primary care provider, particularly the low sodium (126), as they might recommend having these levels rechecked even before you are able to be reevaluated in their office. You were given 40 mg Lasix by mouth prior to discharge to help take more fluid off of your legs. Resume your usual Lasix dose and schedule as previously prescribed. I have also electronically submitted a prescription for metoprolol XL 25 mg to the [facility] in [place]. This is based on a documented conversation between the emergency department doctor that admitted you last week and your pizza chef. That note indicates that your pizza chef recommended the metoprolol; as this has apparently not been prescribed for you, I am now providing that prescription. I have only prescribed a 10-day course of the medication; hopefully, you will be able to be reevaluated by your pizza chef within that timeframe and they can prescribe more if they feel it is indicated. Discharge Date/Time: 04/13/24 01:21
[2024-04-12 23:26] LABS: BASOPHILS % (AUTO) 0.5 %; EOSINOPHILS # (AUTO) 0.1 10^3/uL (0.0-0.7); EOSINOPHILS % (AUTO) 1.1 %; HCT - HEMATOCRIT 30.4 % (37.0-47.0); HGB - HEMOGLOBIN 9.6 g/dL (12.0-16.0); LYMPHOCYTES # (AUTO) 1.5 10^3/uL (1.5-3.5); LYMPHOCYTES % (AUTO) 17.6 %; MEAN CORPUSCULAR HGB CONC 31.6 g/dL (32.0-36.0); MEAN CORPUSCULAR VOLUME 98.1 fL (81.0-99.0); MEAN PLATELET VOLUME 8.5 fL (7.9-10.8); MONOCYTES # (AUTO) 0.7 10^3/uL (0.0-1.0); MONOCYTES % (AUTO) 8.6 %; NEUTROPHILS % (AUTO) 71.7 %; PLT - PLATELET COUNT 285 10^3/uL (130-450); RED CELL DISTRIBUTION WIDTH 14.1 % (12.0-15.0); WHITE BLOOD COUNT 8.4 x10^3/uL (4.8-10.8)
[2024-04-12 23:43] LABS: ALBUMIN 3.9 g/dL (3.2-5.5); ALBUMIN/GLOBULIN RATIO 1.3 (1.0-2.2); BILIRUBIN,TOTAL 0.5 mg/dL (0.2-1.0); CALCIUM 9.3 mg/dL (8.5-10.3); CREATININE 0.7 mg/dL (0.6-1.3); POTASSIUM 4.3 mmol/L (3.5-4.5); TOTAL PROTEIN 6.8 g/dL (6.4-8.9)
[2024-04-13] MEDS: FUROSEMIDE 20 MG TABLET PO STA (01:10)
[2024-04-13] MEDS: METOPROLOL SUCCINATE 25 MG TABLET PO STA (01:10)
[2024-04-13 01:22] VITALS: BP 172/63; O2SAT 98
== END 2024-04-13 01:21 | disposition home or self-care (01) ==
LOC: EDUNIT# → ED 22:43
DX: I49.3 Ventricular premature depolarization (principal); R60.0 Localized edema; I50.9 Heart failure, unspecified; I48.91 Unspecified atrial fibrillation; E11.9 Type 2 diabetes mellitus without complications; Z79.01 Long term (current) use of anticoagulants; Z79.84 Long term (current) use of oral hypoglycemic drugs
CPT/HCPCS: 36415; 80053; 83690; 83880; 85025; 93005; 99284; A9270

== ENCOUNTER 2024-05-04 12:37 | Outpatient (CLI) | payer MEDICARE ==
[2024-05-04 14:42] LABS: BASOPHILS % (AUTO) 0.6 %; EOSINOPHILS # (AUTO) 0.1 10^3/uL (0.0-0.7); HCT - HEMATOCRIT 33.7 % (37.0-47.0); HGB - HEMOGLOBIN 10.2 g/dL (12.0-16.0); LYMPHOCYTES # (AUTO) 0.7 10^3/uL (1.5-3.5); LYMPHOCYTES % (AUTO) 10.2 %; MEAN CORPUSCULAR HEMOGLOBIN 29.7 pg (27.0-31.0); MEAN CORPUSCULAR HGB CONC 30.3 g/dL (32.0-36.0); MONOCYTES # (AUTO) 0.6 10^3/uL (0.0-1.0); MONOCYTES % (AUTO) 8.1 %; NEUTROPHILS # (AUTO) 5.7 10^3/uL (1.5-6.6); NEUTROPHILS % (AUTO) 79.8 %; PLT - PLATELET COUNT 292 10^3/uL (130-450); RED BLOOD COUNT 3.44 10^6/uL (4.20-5.40); RED CELL DISTRIBUTION WIDTH 13.5 % (12.0-15.0); WHITE BLOOD COUNT 7.1 x10^3/uL (4.8-10.8)
[2024-05-04 15:43] LABS: THYROID STIMULATING HORMONE 1.97 uIU/mL (0.34-5.60)
[2024-05-04 15:54] LABS: ALBUMIN/GLOBULIN RATIO 1.6 (1.0-2.2); BILIRUBIN,TOTAL 0.5 mg/dL (0.2-1.0); CALCIUM 9.2 mg/dL (8.5-10.3); CREATININE 0.7 mg/dL (0.6-1.3); POTASSIUM 3.5 mmol/L (3.5-4.5); TOTAL PROTEIN 6.5 g/dL (6.4-8.9)
== END 2024-05-04 12:38 | disposition home or self-care (01) ==
LOC: LAB.S 12:37
PROVIDERS: ATTEND Internal Medicine
DX: I50.9 Heart failure, unspecified (principal); E87.1 Hypo-osmolality and hyponatremia; E04.1 Nontoxic single thyroid nodule; D64.9 Anemia, unspecified
CPT/HCPCS: 36415; 80053; 83540; 83880; 84443; 84466; 85025

== ENCOUNTER 2024-05-13 12:56 | Outpatient (CLI) | payer MEDICARE | END 2024-05-13 23:59 | disposition short-term general hospital (02) | LOC: EMS 12:56 | DX: R06.09 Other forms of dyspnea (principal) | CPT/HCPCS: A0425; A0427 ==